=== PATIENT | female | born 1990 | race Caucasian/White ===

== ENCOUNTER 2023-06-14 11:47 | Outpatient (CLI) | payer BC, SELFPAY ==
--- OUTSIDE RECORDS SUMMARY | 2023-06-14 11:53 | XMS_ITS | Encounter Summary ---
Author Name Unknown Organization [facility] Address [address] [place] [address] Care Team Providers Care Carbon Furnace Operator Helper Name Role Phone No Ref-Primary, Physician Primary Care Provider Carmen Bernabe PA-C Unavailable [phone] [address] Cochran DPM, Podiatry /Foot and Ankle Surgery Unavailable Kaitlyn Tello GC Unavailable Tre Perera MD Unavailable Encounter Details Date Type Department Care Team (Late st Contact Info) Description 05/01/2023 MyC Medical Advice [address] [address] Crystal Landa, RN Social History Tobacco Use Types Packs/Day Years Used Date Smoking Tobacco: Never Smokeless Tobacco: Never Alcohol Use Standard Drinks/Week Comments Yes 0 (1 standard drink = 0.6 oz pur e alcohol) rarely PHQ-2 Answer Date Recorded PHQ-2 Score 0 10/20/2020 Adolescent Education Answer Date Record ed Getting School Help Needed Not on file 02/10 Sex and Gender Information Value Date Recorded Sex Assigned at Not on file Gender Identity Not on file Sexual Orientation Not on file documented as of this encounter Plan of Treatment Upcoming Encounters Date Type Department Care Team (Late st Contact Info) Description 05/04/2024 1:00 PM ACCESS DATABASE DEVELOPER Office Visit [address] [phone] Tre Perera MD [address] [place] [address] documented as of this encounter Visit Diagnoses Not on filedocumented in this encounter Additional Health Concerns Assessment Noted Time PHQ-9 Depression Total Score: 7 07/15/19 19 3:30 PM ACCESS DATABASE DEVELOPER documented as of this encounter Care Teams Carbon Furnace Operator Helper Relationship Specialty Start Date End Date No Ref-Primary, Physician PCP - General 09/16/18 Carmen Bernabe, PANewC [address] [place] [address] Physician Clinical Therapist Dermatology 05/01/21 Ave Cochran DPCristobal, Podiatry/Foot and Ankle Surgery [address] [address] Assigned Musculoskeletal Provider 12/30/21 Kaitlyn Tello GC Genetic Counseling Graduate Program Office [address] [place] [address] [address] [place] [address] Genetic Counselor Genetic Counselor, [place] 12/04/22 Tre Perera MD [address] [place] [address] Assigned Surgical Provider 05/04/23 documented as of this encounter
--- OUTSIDE RECORDS SUMMARY | 2023-06-14 11:53 | XMS_ITS | Encounter Summary ---
Author Name Unknown Organization [facility] Address [address] [place] [address] Care Team Providers Care Heat And Frost Insulator Helper Name Role Phone No Ref-Primary, Physician Primary Care Provider Carmen Bernabe PA-C Unavailable [phone] [address] CochranM, Podiatry /Foot and Ankle Surgery Unavailable Edwin Fitzgerald MD Unavailable [phone] Encounter Details Date Type Department Care Team (Latest Contact Info) Description 08/27/2022 Travel Social History Tobacco Use Types Packs/Day Years Used Date Smoking Tobacco: Never Smokeless Tobacco: Never Alcohol Use Standard Drinks/Week Comments Yes 0 (1 standard drink = 0.6 oz pur e alcohol) rarely PHQ-2 Answer Date Recorded PHQ-2 Score 0 10/20/2020 Sex and Gender Information Value Date Recorded Sex Assigned at Not on file Gender Identity Not on file Sexual Orientation Not on file COVID-19 Exposure Response Date Recorded In the last 10 days, have yo u been in contact with someone who was confirmed or suspected to have Coronavirus/COVID-19? No / Unsure 08/27/2022 9:27 AM CDT documented as of this encounter Plan of Treatment Upcoming Encounters Date Type Department Care Team (Late st Contact Info) Description 05/04/2024 1:00 PM WATER SERVER Office Visit [address] [place] [phone] Tre Perera MD [address] [place] [address] documented as of this encounter Visit Diagnoses Not on filedocumented in this encounter Additional Health Concerns Assessment Noted Time PHQ-9 Depression Total Score: 7 07/15/19 19 3:30 PM WATER SERVER documented as of this encounter Care Teams Heat And Frost Insulator Helper Relationship Specialty Start Date End Date No Ref-Primary, Physician PCP - General 09/16/18 Carmen Bernabe, PA-C [address] [place] [address] Physician It Sales Consultant Dermatology 05/01/21 Ave Cochran DPM, Podiatry/Foot and Ankle Surgery [address] [place] [address] Assigned Musculoskeletal Provider 12/30/21 Edwin Fitzgerald MD [address] [place] [address] Assigned Surgical Provider 04/21/22 documented as of this encounter
--- OUTSIDE RECORDS SUMMARY | 2023-06-14 11:53 | XMS_ITS | Encounter Summary ---
Author Name Unknown Organization [facility] Address [address] [place] [address] Care Team Providers Care Counseling Center Director Name Role Phone No Ref-Primary, Physician Primary Care Provider Carmen Bernabe PA-C Unavailable [phone] [address] Cochran DPM, Podiatry /Foot and Ankle Surgery Unavailable Kaitlyn Tello GC Unavailable Encounter Details Date Type Department Care Team (Latest Contact Info) Description 05/01/2023 Travel Social History Tobacco Use Types Packs/Day [...] st Contact Info) Description 05/04/2024 1:00 PM PUMPING SUPERVISOR Office Visit [facility] [address] [address] Tre Perera MD [address] [place] [address] documented as of this encounter Visit Diagnoses Not on filedocumented in this encounter Additional Health Concerns Assessment Noted Time PHQ-9 Depression Total Score: 7 07/15/19 19 3:30 PM PUMPING SUPERVISOR documented as of this encounter Care Teams Counseling Center Director Relationship Specialty Start Date End Date No Ref-Primary, Physician PCP - General 09/16/18 Carmen Bernabe, PANewC [address] [place] [address] Physician Automatic Nailing Machine Feeder Dermatology 05/01/21 Ave Cochran DPM, Podiatry/Foot and Ankle Surgery [address] [place] [address] [place] [id number] Assigned Musculoskeletal Provider 12/30/21 Kaitlyn Tello GC Genetic Counseling Graduate Program Office [address] [place] [address] [address] [place], [place] [phone] Genetic Counselor Genetic Counselor, 12/04/22 documented as of this encounter
--- OUTSIDE RECORDS SUMMARY | 2023-06-14 11:53 | XMS_ITS | Encounter Summary ---
Author Name Unknown Organization [facility] Address [address] [place] [address] Care Team Providers Care Certified Financial Planner Name Role Phone No Ref-Primary, Physician Primary Care Provider Carmen Bernabe PA-C Unavailable [phone] [address] Cochran DPM, Podiatry /Foot and Ankle Surgery Unavailable Edwin Fitzgerald MD Unavailable Reason for Visit * Reason Comments Nausea, Vomiting, & Diarrhea Encounter Details Date Type Department Care Team (Late st Contact Info) Description 08/27/2022 11:43 AM CDT - 08/27/2022 1:28 PM CDT [facility] Emergency Dept [address] [place] [address] Sam Rios MD [facility] [address] [place], [place] [phone] Nausea vomiting and diarrhea Discharge Disposition: Home or Self Care Social History Tobacco Use Types Packs/Day Years [...] Recorded In the last 10 days, have jon u been in contact with someone who was confirmed or suspected to have Coronavirus/COVID-19? No / Unsure 08/27/2022 9:27 AM CDT documented as of this encounter Last Filed Vital Signs Vital Sign Reading Time Taken Comments Blood Pressure 105/66 08/27/2022 12:58 PM CDT Pulse 91 08/27/2022 12:30 PM CDT Temperature 36.9 ??C (98.4 ??F) 08/27/2022 9:32 AM CD T Respiratory Rate 18 08/27/2022 9:32 AM CDT Oxygen Saturation 100% 08/27/2022 12:58 PM CDT Inhaled Oxygen Concentration - - Weight - - Height - - Body Mass Index - - documented in this encounter Discharge Instructions * Attachments The following attachments cannot be sent through Care Everywhere. * Vomiting and Diarrhea, Nonspecific (Adult) (Chinese) documented in this encounter Medications at Time of Discharge Medication Sig Dispensed Refills Start Date End Date albuterol (PROAIR HFA/PROVENTIL HFA/VENTOLIN HFA) 108 (90 Base) MCG/ACT inhalerIndications:Inter mittent asthma, uncomplicated Inhale 2 puffs into the lungs every 4 hours as needed for shortness of breath / dyspnea 2 Inhaler 11 06/03/2018 budesonide (PULMICORT FLEXHALER) 180 MCG/ACT inhaler 0 09/25/2020 budesonide (RINOCORT AQUA) 32 MCG/ACT nasal spray [place] 1 spray into both nostrils daily 0 buPROPion (WELLBUTRIN XL) 300 MG 24 hr tablet 150 mg 0 09/20/2020 Cetirizine HCl (ZYRTEC ALLERGY PO) Take 1 tablet by mouth as needed. 0 cholecalciferol (VITAMIN D3) 5000 units (125 mcg) capsule Take by mouth daily 0 desogestrel-ethinyl estradiol (KARIVA) 0.15-0.02/0.01 MG (21/5) tablet Take 1 tablet by mouth daily 0 Docusate Sodium (COLACE PO) 0 Famotidine (PEPCID PO) 0 Vit-Fe Fumarate-FA ( MULTIVITAMIN W/IRON) 27-0.8 MG tablet Take 1 tablet by mouth daily 0 Probiotic Product (PROBIOTIC-10 PO) Take by mouth daily 0 silver sulfADIAZINE (SILVADENE) 1 % external creamIndications:Acute foot pain, left,Ingrown nail of great toe of left foot Apply topically 2 times daily 25 g 1 12/22/2021 triamcinolone (ARISTOCORT HP) 0.5 % external creamIndications:Chronic dermatitis of hands Apply a thin layer to affected area BID x 2 weeks, tapering with improvement. Do not apply to face or body folds. 60 g 0 07/17/2021 ondansetron (ZOFRAN ODT) 4 MG ODT tab Take 1 tablet (4 mg) by mouth every 8 hours as needed for nausea or vomiting 10 tablet 0 08/27/2022 08/30/2022 documented as of this encounter ED Notes * Beverly Little RN - 08/27/2022 1:28 PM CDT Passed VANNESSA france MD aware * Perlita Ordonez RN - 08/27/2022 9:32 AM CDT Patient presents to the ED reporting vomiting and diarrhea since 0500 this morning. States is unable to keep anything down. * Sam Rios MD - 08/27/2022 9:27 AM CDT History Chief Complaint: Nausea, Vomiting, & Diarrhea The history is provided by the patient. Madison Donaldson is an otherwise healthy 31 year old female who presents with nausea, vomiting, anddiarrhea since 0500 this morning. Another symptom mentioned was some lightheadedness. She is not aware of any recent sick contacts, and is not concerned for . She ate an Easter meal yesterday, but no one else who ate it got sick. She denies hematochezia, melena, or hematemesis. Independent Historian: None Review of External Notes: None ROS: Review of Systems Gastrointestinal: Positive for diarrhea, nausea and vomiting. Negative for blood in stool. Neurological: Positive for light-headedness. All other systems reviewed and are negative. Allergies: Amoxicillin Seasonal Allergies Dilaudid [Kdc:Hydromorphone+Methylparaben+Propylparaben+Sodium Metabisulfite] Fentanyl Shellfish Allergy Medications: Albuterol Budesonide Bupropion Cetirizine HCl Kariva Docusate Sodium Famotidine Past Medical History: Anxiety Asthma IBS w/ diarrhea Seasonal affective disorder Depression Past Surgical History: L proximal patellar realignment Bilateral inguinal herniorrhaphy Bilateral myringotomy w/ tube insertion [place] teeth extraction Family History: Father - BCC Mother - fibromyalgia, Medullary Sponge Kidney Social History: Hx of current alcohol use; denies smoking, smokeless tobacco use, or drug use PCP: No Ref-Primary, Physician The patient presents to the ED with her father via private vehicel Physical Exam Patient Vitals for the past 24 hrs: BP Temp Pulse Resp SpO2 08/27/22 1230 105/72 -- 91 -- 100 % 08/27/22 0932 112/71 98.4 ??F (36.9 ??C) 101 18 100 % Physical Exam Eyes: periorbital tissue and sclera normal Neck: supple CV: ppi, regular Resp: speaking in full sentences without any resp distress Abd: abdomen is soft without significant tenderness, masses, organomegaly or guarding Ext: peripheral edema present: No Skin: warm dry well perfused Neuro: Alert, no gross motor or sensory deficits, gait stable Emergency Department Course Laboratory: Labs Ordered and Resulted from Time of ED Arrival to Time of ED Departure CBC WITH PLATELETS AND DIFFERENTIAL - Abnormal Result Value WBC Count 11.3 (*) RBC Count 5.08 Hemoglobin 14.7 Hematocrit 44.1 MCV 87 MCH 28.9 MCHC 33.3 RDW 12.6 Platelet Count 202 % Neutrophils 95 % Lymphocytes 3 % Monocytes 2 % Eosinophils 0 % Basophils 0 % Immature Granulocytes 0 NRBCs per 100 WBC 0 Absolute Neutrophils 10.7 (*) Absolute Lymphocytes 0.4 (*) Absolute Monocytes 0.2 Absolute Eosinophils 0.0 Absolute Basophils 0.0 Absolute Immature Granulocytes 0.0 Absolute NRBCs 0.0 BASIC METABOLIC PANEL - Normal Sodium 137 Potassium 4.4 Chloride 103 Carbon Dioxide (CO2) 22 Anion Gap 12 Urea Nitrogen 14.5 Creatinine 0.79 Calcium 9.3 Glucose 97 GFR Estimate >90 Emergency Department Course & Assessments: Interventions: 1035 Zofran 4 mg PO 1207 Toradol 15 mg IV 1208 Zofran 4 mg IV Independent Interpretation (X-rays, CTs, rhythm strip): N/A Consultations/Discussion of Management or Tests: N/A Social Determinants of Health affecting care: None Assessments: 1153 I obtained history and examined the patient as noted above. 1315 I rechecked the patient and explained findings. I discussed plan for discharge home. Disposition: The patient was discharged to home. Impression & Plan Medical Decision Makin-year-old female here for nonbilious nonbloody emesis and nonbloody diarrhea since 5 AM this morning. Overall looks well. No significant localizing abdominal tenderness palpation. Suspicion for intra abdominal vascular infectious or surgical emergency is low. She did well with antiemetics intravenous fluids. Blood test unremarkable, she was able to pass a p.o. challenge. Safe for discharge homeantiemetics as needed. Diagnosis: ICD-10-CM 1. Nausea vomiting and diarrhea R11.2 R19.7 Discharge Medications: New Prescriptions ONDANSETRON (ZOFRAN ODT) 4 MG ODT TAB Take 1 tablet (4 mg) by mouth every 8 hours as needed for nausea or vomiting Scribe Disclosure: I, Brooks Luis Alberto, am serving as a scribe at 12:58 PM on 08/27/2022 to document services personally performed by Sam Rios MD based on my observations and the provider's statements to me. 08/27/2022 Sam Rios, * Sam Rios MD 08/27/22 1322 documented in this encounter Plan of Treatment Upcoming Encounters Date Type Department Care Team (Late st Contact Info) Description 05/04/2024 1:00 PM REBAR WORKER Office Visit [address] [phone] Tre Perera MD [address] [place] [address] documented as of this encounter Procedures Procedure Name Priority Date/Time Associated Diagnosis Comments EXTRA TUBE STAT 08/27/2022 11:57 AM CDT EXTRA PURPLE TOP TUBE STAT 08/27/2022 11:57 AM CDT EXTRA GREEN TOP (LITHIUM HEPARIN) TUBE STAT 08/27/2022 11:57 AM CDT EXTRA RED TOP TUBE STAT 08/27/2022 11 :57 AM CDT EXTRA BLUE TOP TUBE STAT 08/27/2022 1 1:57 AM CDT CBC WITH PLATELETS AND DIFFERENTIAL STAT 08/27/2022 11:57 AM CDT CBC WITH PLATELETS & DIFFERENTIAL STAT 08/27/2022 11:57 AM CDT BASIC METABOLIC PANEL STAT 08/27/2022 11:57 AM CDT documented in this encounter Results * (ABNORMAL) CBC with platelets and differential (08/27/2022 11:57 AM CDT) [facility] WBC Count 11.3(H) 4.0 - 11.0 10e3/uL 08/27/2022 12:34 PM CDT [facility] RBC Count 5.08 3.80 - 5.20 10e6/uL 08/27/2022 12:34 PM CDT [facility] Hemoglobin 14.7 11.7 - 15.7 g/dL 08/27/2022 12:34 PM CDT [facility] Hematocrit 44.1 35.0 - 47.0 % 08/27/2022 12:34 PM CDT [facility] MCV 87 78 - 100 fL 08/27/2022 12:34 PM CDT [facility] MCH 28.9 26.5 - 33.0 pg 08/27/2022 12:34 PM CDT [facility] MCHC 33.3 31.5 - 36.5 g/dL 08/27/2022 12:34 PM CDT [facility] RDW 12.6 10.0 - 15.0 % 08/27/2022 12:34 PM CDT [facility] Platelet Count 202 150 - 450 10e3/uL 08/27/2022 12:34 PM CDT [facility] % Neutrophils 95 % 08/27/2022 12:34 PM CDT [facility] % Lymphocytes 3 % 08/27/2022 12:34 PM CDT [facility] % Monocytes 2 % 08/27/2022 12:34 PM CDT [facility] % Eosinophils 0 % 08/27/2022 12:34 PM CDT [facility] % Basophils 0 % 08/27/2022 12:34 PM CDT [facility] % Immature Granulocytes 0 % 08/27/2022 12:34 PM CDT [facility] NRBCs per 100 WBC 0 <1 /100 023 12:34 PM CDT [facility] Absolute Neutrophils 10.7(H) 1.6 - 8.3 10e3/uL 08/27/2022 12:34 PM CDT [facility] Absolute Lymphocytes 0.4(L) 0.8 - 5.3 10e3/uL 08/27/2022 12:34 PM CDT [facility] Absolute Monocytes 0.2 0.0 - 1.3 10e3/uL 08/27/2022 12:34 PM CDT [facility] Absolute Eosinophils 0.0 0.0 - 0.7 10e3/uL 08/27/2022 12:34 PM CDT [facility] Absolute Basophils 0.0 0.0 - 0.2 10e3/uL 08/27/2022 12:34 PM CDT [facility] Absolute Immature Granulocytes 0.0 <=0.4 10e3/uL 08/27/2022 12:34 PM CDT [facility] Absolute NRBCs 0.0 10e3/uL 08/27/2022 12:34 PM CDT [facility] Blood STRUCTURE OF LEFT UPPER LIMB / Unknown Venipuncture / Unknown 08/27/2022 11:57 AM CDT 08/27/2022 12:00 PM CDT Sam Rios MD LAB - BLOOD ORD ERABLES [facility] [address] Lab (1st floor, no room number) [place] [address], [facility] [phone] * Basic metabolic panel (08/27/2022 11:57 AM CDT) Sodium 137 136 - 145 mmol/L 08/27/2022 12:55 PM CDT LABORATORY Potassium 4.4 3.4 - 5.3 mmol/L 08/27/2022 12:55 PM CDT [facility] Chloride 103 98 - 107 mmol/L 08/27/2022 12:55 PM CDT LABORATORY Carbon Dioxide (CO2) 22 22 - 29 mmol/L 08/27/2022 12:55 PM CDT LABOR[facility] Anion Gap 12 7 - 15 mmol/L 08/27/2022 12:55 PM CDT [facility] Urea Nitrogen 14.5 6.0 - 20.0 mg/dL 08/27/2022 12:55 PM CDT LABORATORY Creatinine 0.79 0.51 - 0.95 mg/dL 08/27/2022 12:55 PM CDT LABORATORY Calcium 9.3 8.6 - 10.0 mg/dL 08/27/2022 12:55 PM CDT LABORATORY Glucose 97 70 - 99 mg/dL 08/27/2022 12:55 PM CDT LABORATORY GFR Estimate >90 >60 mL/min/1.7 3m2 08/27/2022 12:55 PM CDT LABORATORY Comment:eGFR calculated usin 2020 CKD-EPI equation. Blood STRUCTURE OF LEFT UPPER LIMB / Unknown Venipuncture / Unknown 08/27/2022 11:57 AM CDT 08/27/2022 12:00 PM CDT Sam Rios MD LAB - BLOOD ORD ERABLES [facility]ATORY [facility] [address] Lab (1st floor, no room number) [place] [address], [facility] [phone] * Extra Purple Top Tube (08/27/2022 11:57 AM CDT) Hold Specimen JIC 08/27/2022 1:02 PM CDT [facility] Blood STRUCTURE OF LEFT UPPER LIMB / Unknown Venipuncture / Unknown 08/27/2022 11:57 AM CDT 08/27/2022 12:00 PM CDT Sam Rios MD LAB - BLOOD ORD ERABLES [facility] [address] Lab (1st floor, no room number) [place] [address], [place] [phone] * Extra Green Top ([place] Heparin) Tube (08/27/2022 11:57 AM CDT) Hold Specimen [facility] 08/27/2022 1:02 PM CDT [facility] Blood STRUCTURE OF LEFT UPPER LIMB / Unknown Venipuncture / Unknown 08/27/2022 11:57 AM CDT 08/27/2022 12:00 PM CDT Sam Rios MD LAB - BLOOD ORD ERAAILEEN [facility] [address] Lab (1st floor, no room number) [place] [address], [place] [phone] * Extra Red Top Tube (08/27/2022 11:57 AM CDT) Hold Specimen [facility] 08/27/2022 1:02 PM CDT [facility] Blood STRUCTURE OF LEFT UPPER LIMB / Unknown Venipuncture / Unknown 08/27/2022 11:57 AM CDT 08/27/2022 12:00 PM CDT Sam Rios MD LAB - BLOOD ORD ERABLES [facility] [address] Lab (1st floor, no room number) [place] [address], [place] [phone] * Extra Blue Top Tube (08/27/2022 11:57 AM CDT) Hold Specimen [facility] 08/27/2022 1:02 PM CDT [facility] Blood STRUCTURE OF LEFT UPPER LIMB / Unknown Venipuncture / Unknown 08/27/2022 11:57 AM CDT 08/27/2022 12:00 PM CDT Sam Rios MD LAB - BLOOD ORD ERABLES LABORATORY [facility] [address] [facility] Lab (1st floor, no room number) [place] [address], [facility] [phone] documented in this encounter Visit Diagnoses Diagnosis Nausea vomiting and diarrhea Nausea with vomiting documented in this encounter Administered Medications Inactive Administered Medications - up to 3 most recent administrations Medication Order MAR Action Action Date Dose Rate Site ketorolac (TORADOL) injection 15 mg 15 mg, Intravenous, ONCE, On Sat08/27/22 at 1205, For 1 dose, Can cause pain on injection. If ordered intravenously (IV) : administer through a running maintenance fluid over 1 minute followed by a flush. If patient complains of pain on injection, may dilute 15-30 mg in 5 mL and push over 1 to 2 minutes. $Given 08/27/2022 12:07 PM CDT 15 mg ondansetron (ZOFRAN ODT) ODT tab 4 mg 4 mg, Oral, ONCE, On Sat08/27/22 at 1035, For 1 dose, With dry hands, peel back foil backing and gently remove tablet. Do not push oral disintegrating tablet through foil backing. Administer immediately on tongue and oral disintegrating tablet dissolves in seconds, then swallow with saliva. Liquid not required. $Given 08/27/2022 10:35 AM CDT 4 mg ondansetron (ZOFRAN) injection 4 mg 4 mg, Intravenous, ONCE, Administer over 2-5 Minutes, On Sat08/27/22 at 1205, For 1 dose, Irritant. $Given 08/27/2022 12:08 PM CDT 4 mg documented in this encounter Active and Recently Administered Medications Times are shown in CDT. Scheduled Medication Order 08/25/2022 08/26/2022 08/27/2022 ketorolac (TORADOL) injection 15 mg (COMPLETED) 15 mg, Intravenous, ONCE, On Sat08/27/22 at 1205, For 1 dose, Can cause pain on injection. If ordered intravenously (IV) : administer through a running maintenance fluid over 1 minute followed by a flush. If patient complains of pain on injection, may dilute 15-30 mg in 5 mL and push over 1 to 2 minutes. 1207 ($Given - Provi hay: Sreedhar Rico, RN) ondansetron (ZOFRAN ODT) ODT tab 4 mg (COMPLETED) 4 mg, Oral, ONCE, On Sat08/27/22 at 1035, For 1 dose, With dry hands, peel back foil backing and gently remove tablet. Do not push oral disintegrating tablet through foil backing. Administer immediately on tongue and oral disintegrating tablet dissolves in seconds, then swallow with saliva. Liquid not required. 1035 ($Given - Provi hay: Perlita Ordonez RN) ondansetron (ZOFRAN) injection 4 mg (COMPLETED) 4 mg, Intravenous, ONCE, Administer over 2-5 Minutes, On Sat08/27/22 at 1205, For 1 dose, Irritant. 1208 ($Given - Provi hay: Sreedhar Rico, BRYCE) documented in this encounter Additional Health Concerns Assessment Noted Time PHQ-9 Depression Total Score: 7 07/15/19 19 3:30 PM REBAR WORKER documented as of this encounter Care Teams Certified Financial Planner Relationship Specialty Start Date End Date No Ref-Primary, Physician PCP - General 09/16/18 Carmen Bernabe, FELIX [address] [place] [address] Physician Mediator Dermatology 05/01/21 Ave Cochran DPM, Podiatry/Foot and Ankle Surgery [address] [place] [address] Assigned Musculoskeletal Provider 12/30/21 Edwin Fitzgerald MD [address] [place] [address] Assigned Surgical Provider 04/21/22 documented as of this encounter
--- OUTSIDE RECORDS SUMMARY | 2023-06-14 11:53 | XMS_ITS | Clinical Summary ---
Author Name Unknown Organization [facility] Address [address] [place] [address] Care Team Providers Care Business Continuity Planner Name Role Phone No Ref-Primary, Physician Primary Care Provider Carmen Bernabe PA-C Unavailable Ave Cochran DPM, Podiatry /Foot and Ankle Surgery Unavailable Kaitlyn Tello GC Unavailable Tre Perera MD Unavailable Allergies Active Allergy Reactions Criticality Noted Date Comments Amoxicillin Nausea and Vomiting 05/28/2012 Hydromorphone Hcl Rash Low 05/25/2013 Fentanyl Rash Low 05/25/2013 Seasonal Allergies 05/28/2012 Shellfish Allergy Rash Low 05/28/2012 Medications Medication Sig Dispensed Refills Start Date End Date Status Cetirizine HCl (ZYRTEC ALLERGY PO) Take 1 tablet by mouth as needed. 0 Active albuterol (PROAIR HFA/PROVENTIL HFA/VENTOLIN HFA) 108 (90 Base) MCG/ACT inhalerIndications:I ntermittent asthma, uncomplicated Inhale 2 puffs into the lungs every 4 hours as needed for shortness of breath / dyspnea 2 Inhaler 11 06/03/2018 Active desogestrel-ethinyl estradiol (KARIVA) 0.15-0.02/0.01 MG (07/10) tablet Take 1 tablet by mouth daily 0 Active cholecalciferol (VITAMIN D3) 5000 units (125 mcg) capsule Take by mouth daily 0 Active Probiotic Product (PROBIOTIC-10 PO) Take by mouth daily 0 Active budesonide (PULMICORT FLEXHALER) 180 MCG/ACT inhaler 0 09/25/2020 Active buPROPion (WELLBUTRIN XL) 300 MG 24 hr tablet 150 mg 0 09/20/2020 Active Vit-Fe Fumarate-FA ( MULTIVITAMIN W/IRON) 27-0.8 MG tablet Take 1 tablet by mouth daily 0 Active budesonide (RINOCORT AQUA) 32 MCG/ACT nasal spray [place] 1 spray into both nostrils daily 0 Active Docusate Sodium (COLACE PO) 0 Active Famotidine (PEPCID PO) 0 Active triamcinolone (ARISTOCORT HP) 0.5 % external creamIndications:Chr onic dermatitis of hands Apply a thin layer to affected area BID x 2 weeks, tapering with improvement. Do not apply to face or body folds. 60 g 0 07/17/2021 Active Additional Information Patient not taking.Reported on 12/22/2021 silver sulfADIAZINE (SILVADENE) 1 % external creamIndications:Acu te foot pain, left,Ingrown nail of great toe of left foot Apply topically 2 times daily 25 g 1 12/22/2021 Active Additional Information Patient not taking.Reported on 05/01/2023 Active Problems Problem Noted Date Diagnosed Date Seasonal allergic rhinitis due to pollen 017 Mild persistent asthma with acute exacerbation 0 07/30/2016 Irritable bowel syndrome with diarrhea 6 Anxiety 02/16/2015 Syncope 05/28/2012 CARDIOVASCULAR SCREENING; LDL GOAL LESS THAN 160 05/28/2012 Allergic rhinitis Resolved Problems Problem Noted Date Diagnosed Date Resolved Date Thoracic spine pain 05/04/2021 07/28/19 22 Urinary urgency 12/15/2020 07/10/2021 Feeling of incomplete bladder emptying 12/15/2020 07/10/2021 Pubic bone pain 12/15/2020 07/10/2021 Intermittent asthma 05/31/2015 10/02/19 17 Encounters Date Type Department Care Team Description 05/01/2023 9:30 AM TIRE SERVICE SUPERVISOR Office Visit M [address] [phone] Tre Perera MD Actinic skin damage (Primary Dx); Multiple benign nevi; Lentigines 05/01/2023 Travel 05/01/2023 MyC Medical Advice M [address] [phone] Crystal Landa RN from Last 3 Months Immunizations Name Administration Dates Next Due Hepatitis A (ADULT 19+) 03/12/2017,04/24/2016 Influenza (IIV3) PF 02/16/2015,05/28/2012 Influenza Vaccine >6 months,quad, PF 03/19/2018, 04/24/2016 MMR 04/24/2016,01/18/2015 Mantoux Tuberculin Skin Test 03/12/2017, 03/05/2017,05/25/2013, 013 TD,PF 7+ (Tenivac) 06/30/2002 TDAP (Adacel,Boostrix) 05/20/2009 Typhoid IM 04/24/2016 Varicella Pt Report Hx of Varicella/Chicken Pox 05/20/1993 Yellow Fever 04/24/2016 Family History Medical History Relation Comments C.A.D. Maternal Grandfather Breast Cancer Maternal Grandmother Cerebrovascular Disease Paternal Grandfather Breast Cancer Paternal Grandmother Relation Status Comments Brother Alive Father Alive Maternal Grandfather Maternal Grandmother Mother Alive Paternal Grandfather Paternal Grandmother Sister Alive Social History Tobacco Use Types Packs/Day Years Used Date Smoking Tobacco: Never Smokeless Tobacco: Never Tobacco Cessation:Counseling Given: Yes Alcohol Use Standard Drinks/Week Comments Yes 0 (1 standard drink = 0.6 oz pur e alcohol) rarely PHQ-2 Answer Date Recorded PHQ-2 Score 0 10/20/2020 Adolescent Education Answer Date Record ed Getting School Help Needed Not on file 02/10 Sex and Gender Information Value Date Recorded Sex Assigned at Not on file Gender Identity Not on file Sexual Orientation Not on file Last Filed Vital Signs Vital Sign Reading Time Taken Comments Blood Pressure 105/66 08/27/2022 12:58 PM CDT Pulse 91 08/27/2022 12:30 PM CDT Temperature 36.9 ??C (98.4 ??F) 08/27/2022 9:32 AM CD T Respiratory Rate 18 08/27/2022 9:32 AM CDT Oxygen Saturation 100% 08/27/2022 12:58 PM CDT Inhaled Oxygen Concentration - - Weight 58.5 kg (129 lb) 12/22/2021 4:05 PM CDT Height 157.5 cm (5' 2) 11/16/2020 2:02 PM CDT Body Mass Index 23.59 11/16/2020 2:02 PM CDT Plan of Treatment Upcoming Encounters Date Type Department Care Team (Late st Contact Info) Description 05/04/2024 1:00 PM TIRE SERVICE SUPERVISOR Office Visit [facility] [address] [address] Tre Perera MD [address] [place] [address] Health Maintenance Due Date Last Done Comments ADVANCE CARE PLANNING 1988 ANNUAL REVIEW OF HM ORDERS 1988 HEPATITIS B IMMUNIZATION (1 of 3 - 3-dose series) 1988 Pneumococcal Vaccine: Pediatrics (0 to 5 Years) and At-Risk Patients (6 to 64 Years) (1 of 2 - PCV) 1994 HIV SCREENING 09/12/2003 HEPATITIS C SCREENING 2006 ASTHMA CONTROL TEST 12/01/2018 06/03/2018, 03/11/2017, 10/01/2016, Additional history exists PAP 02/18/2019 02/19/2016, 09/18/2011 ASTHMA ACTION PLAN 06/03/2019 06/03/2018, 1 06/04/2015, 04/04/2016, Additional history exists YEARLY PREVENTIVE VISIT 06/03/2019 06/03/19 19, 05/25/2013, 05/28/2012 NE ASSESSMENT 07/15/2019 07/15/2018, 06/03/2018 COVID-19 Vaccine ( season) 2023 03/16/2021, 06/27/2020, 06/06/2020 INFLUENZA VACCINE (#1) 2023 , 03/19/2018, 04/24/2016, Additional history exists PHQ-2 (once per calendar year) 2023 10/20/2020, 07/15/2018, 06/03/2018, Additional history exists DTAP/TDAP/TD IMMUNIZATION (6 - Td or Tdap) 05/23/2031 05/23/2021, 06/12/2019, 06/12/2019, Additional history exists HPV IMMUNIZATION Aged Out No longer e ligible based on patient's age to complete this topic IPV IMMUNIZATION Aged Out No longer e ligible based on patient's age to complete this topic MENINGITIS IMMUNIZATION Aged Out No l onger eligible based on patient's age to complete this topic RSV MONOCLONAL ANTIBODY Aged Out No l onger eligible based on patient's age to complete this topic Advance Directives For more information, please contact: [phone] Latest Code Status on File Code Status Date Activated Date Inactivated Comments Full Code 07/28/2012 10:04 AM 08/27/2022 9:27 AM Care Teams Business Continuity Planner Relationship Specialty Start Date End Date No Ref-Primary, Physician PCP - General 09/16/18 Carmen Bernabe, PANewC [address] [facility] [place] [address] Physician Career Agent Dermatology 05/01/21 Ave Cochran, DPM, Podiatry/Foot and Ankle Surgery [address] [place] [address] Assigned Musculoskeletal Provider 12/30/21 Kaitlyn Tello GC Genetic Counseling Graduate Program Office [address] [place] [address] [address] [place], [place] [id number] Genetic Counselor Genetic Counselor, [place] 12/04/22 Tre Perera MD [address] [place] [id number] Assigned Surgical Provider 05/04/23
--- OUTSIDE RECORDS SUMMARY | 2023-06-14 11:53 | XMS_ITS | Encounter Summary ---
Author Name Unknown Organization [facility] Address [address] [place] [address] Care Team Providers Care Car Blocker Name Role Phone No Ref-Primary, Physician Primary Care Provider Carmen Bernabe PA-C Unavailable [phone] [address] Cochran DPM, Podiatry /Foot and Ankle Surgery Unavailable Edwin Fitzgerald MD Unavailable Reason for Referral * Consultation (Routine) - Pending Review Specialty Diagnoses / Procedures Referred By Bonny alex Referred To Contact Medical Oncology Diagnoses Family history of malignant neoplasm of breast Generic External Data Department Referral ID Status Reason Start Date Expiration Date V isits Requested Visits Authorized Pending Review 11/19/2022 11/19/2023 1 1 Question Answer My Clinical Question Is: Family Hx of breast cancer If you have additional clinical questions which require a provider discussion, please call [phone]. Ask for the Chemo only medicine physician. Reason for Referral: Risk Management/Genetic Counseling Scheduling Instructions: [facility] will call you to coordinate your care as prescribed by the provider. If you don? t hear from a dermatology sales representative within 2 business days, please call Additional Information: Family Hx of breast cancer. Refer by Olvin Yadav NP Comments Fax:Family Hx of breast cancer. Refer by Olvin Yadav NP [facility] will call you to coordinate your care as prescribed by the provider. If you don? t hear from a dermatology sales representative within 2 business days, please call Encounter Details Date Type Department Care Team (Late st Contact Info) Description 11/19/2022 Transcribe Orders GENERIC EXTERNAL DATA DEPARTMENT Provider, Generic External Data Family history of malignant neoplasm of breast (Primary Dx) Social History Tobacco Use Types Packs/Day Years [...] Upcoming Encounters Date Type Department Care Team ([facility] Contact Info) Description 05/04/2024 1:00 PM TIN TIE MACHINE OPERATOR AUTOMATIC Office Visit [address] [address] Tre Perera MD [address] [place] [address] Scheduled Referrals Name Type Priority Associated Diagnoses Orde r Schedule Adult Oncology/Hematology Weatherization Specialist Referral Referral Routine Family history of malignant neoplasm of breast Ordered: 11/19/2022 documented as of this encounter Visit Diagnoses Diagnosis Family history of malignant neoplasm of breast- Primary documented in this encounter Additional Health Concerns Assessment Noted Time PHQ-9 Depression Total Score: 7 07/15/19 19 3:30 PM TIN TIE MACHINE OPERATOR AUTOMATIC documented as of this encounter Care Teams Car Blocker Relationship Specialty Start Date End Date No Ref-Primary, Physician PCP - General 09/16/18 Carmen Bernabe PA-C [facility] [place] [address] Physician Support Team Member Dermatology 05/01/21 Ave Cochran DPM, Podiatry/Foot and Ankle Surgery [address] [place] [address] Assigned Musculoskeletal Provider 12/30/21 Edwin Fitzgerald MD [address] [facility] [address] Assigned Surgical Provider 04/21/22 documented as of this encounter
--- OUTSIDE RECORDS SUMMARY | 2023-06-14 11:53 | XMS_ITS | Encounter Summary ---
Author Name Unknown Organization [facility] Address [address] [place] [address]. [place] [address] Care Team Providers Care School Bus Aide Name Role Phone No Ref-Primary, Physician Primary Care Provider Carmen Bernabe PA-C Unavailable Ave Cochran DPM, Podiatry /Foot and Ankle Surgery Unavailable Edwin Fitzgerald MD Unavailable Kaitlyn Tello GC Unavailable Encounter Details Date Type Department Care Team (Late Contact Info) Description 11/18/[address] [facility] [address] [place] [phone] Outside, Provider Social History Tobacco Use Types Packs/Day Years [...] Encounters Date Type Department Care Team (Late Contact Info) Description 05/04/2024 1:00 PM DRAINAGE DESIGN COORDINATOR Office Visit [facility] [address] [address] Tre Perera MD [address] [place] [address] documented as of this encounter Visit Diagnoses Not on filedocumented in this encounter Additional Health Concerns Assessment Noted Time PHQ-9 Depression Total Score: 7 07/15/19 19 3:30 PM DRAINAGE DESIGN COORDINATOR documented as of this encounter Care Teams School Bus Aide Relationship Specialty Start Date End Date No Ref-Primary, Physician PCP - General 09/16/18 Carmen Bernabe, PA-C [address] [place] [address] Physician Grade Teacher Dermatology 05/01/21 Ave Cochran DPCristobal, Podiatry/Foot and Ankle Surgery [address] [place] [address] [address] Assigned Musculoskeletal Provider 12/30/21 Edwin Fitzgerald MD [address] [place] [address] Assigned Surgical Provider 04/21/22 03/15/23 Kaitlyn Tello GC Genetic Counseling Graduate Program Office [address] [place] [address] [address] [place], [place] [phone] Genetic Counselor Genetic Counselor, MS 12/04/22 documented as of this encounter
--- OUTSIDE RECORDS SUMMARY | 2023-06-14 11:53 | XMS_ITS | Referral Summary ---
Author Name Unknown Organization [facility] Address [address] [place] [address] Care Team Providers Care Mixer Diamond Powder Name Role Phone No Ref-Primary, Physician Primary Care Provider Carmen Bernabe PA-C Unavailable [phone] [address] Cochran DPM, Podiatry /Foot and Ankle Surgery Unavailable Kaitlyn Tello GC Unavailable Tre Perera MD Unavailable Encounters Date Type Department Care Team Description 05/01/2023 Travel 05/01/2023 9:30 AM CARDIOPULMONARY PHYSICAL THERAPIST Office Visit [address] [address] Tre Perera MD Actinic skin damage (Primary Dx); Multiple benign nevi; Lentigines 05/01/2023 MyC Medical Advice [address] [address] Crystal Landa RN from Last 3 Months Allergies Active Allergy Reactions Criticality Noted Date [...] budesonide (RINOCORT AQUA) 32 MCG/ACT nasal spray [place] 1 spray into both nostrils daily 0 [...] 12/15/2020 07/10/2021 Intermittent asthma 05/31/2015 10/02/19 17 Immunizations Name Administration Dates Next Due Hepatitis A (ADULT 19+) 03/12/2017,04/24/2016 Influenza (IIV3) PF 02/16/2015,05/28/2012 Influenza Vaccine >6 months,quad, PF 03/19/2018, 04/24/2016 MMR 04/24/2016,01/18/2015 Mantoux Tuberculin Skin Test 03/12/2017, 03/05/2017,05/25/2013, 013 TD,PF 7+ (Tenivac) 06/30/2002 TDAP (Adacel,Boostrix) 05/20/2009 Typhoid IM 04/24/2016 Varicella Pt Report Hx of Varicella/Chicken Pox 05/20/1993 Yellow Fever 04/24/2016 Social History Tobacco Use Types Packs/Day Years [...] st Contact Info) Description 05/04/2024 1:00 PM CARDIOPULMONARY PHYSICAL THERAPIST Office Visit [address] [address] Tre Perera MD [address] [place], [place] [address] Advance Directives For more information, please contact: [phone] Latest Code Status on File Code Status Date Activated Date Inactivated Comments Full Code 07/28/2012 10:04 AM 08/27/2022 9:27 AM Care Teams Mixer Diamond Powder Relationship Specialty Start Date End Date No Ref-Primary, Physician PCP - General 09/16/18 Carmen Bernabe, PANewC [address] [place] [address] Physician Polyethylene Combiner Dermatology 05/01/21 Ave Cochran, DPM, Podiatry/Foot and Ankle Surgery [address] [place] [address] Assigned Musculoskeletal Provider 12/30/21 aKitlyn Tello GC Genetic Counseling Graduate Program Office [address] [place] [address] [address] [place], [place] [phone] Genetic Counselor Genetic Counselor, MS 12/04/22 Tre Perera MD [address] [place] [address] Assigned Surgical Provider 05/04/23
--- OUTSIDE RECORDS SUMMARY | 2023-06-14 11:53 | XMS_ITS | Clinical Summary ---
Author Name Unknown Organization [facility] Address [place], [place] [address] Care Team Providers Care Golf Course Laborer Name Role Phone Clinic, No Pcp Or Primary Care Provider Unavaila ble Allergies Active Allergy Reactions Criticality Noted Date Comments Amoxicillin GI Upset 09/18/2018 Hydromorphone Itching 09/18/2018 Fentanyl Itching 09/18/2018 Shellfish Derived Rash 09/18/2018 Medications Medication Sig Dispensed Refills Start Date End Date Status cetirizine (ZYRTEC) 10 mg tablet Take 1 tablet by mouth once daily. 0 09/18/2018 Active triamcinolone, 55 mcg each actuation, nasal (NASACORT AQ) 55 mcg nasal spray Inhale 2 Sprays into both nostrils once daily. 16.5 g 0 09/18/2018 Active buPROPion (WELLBUTRIN XL) 150 mg Extended-Release tablet TAKE 1 TABLET BY MOUTH EVERY DAY 0 03/16/2020 Active fluticasone propion-salmeteroL (ADVAIR) 250-50 mcg/Dose diskus inhaler INHALE 1 PUFF TWO TIMES A DAY. RINSE MOUTH/GARGLE AFTER USE. 0 06/29/2020 Active albuterol HFA (PRO-AIR; VENTOLIN; PROVENTIL) 90 mcg/actuation inhalerIndications:Mil d intermittent asthma with exacerbation Inhale 2 Puffs by mouth 4 times daily if needed for Wheezing. 18 g 0 02/22/2022 Active Active Problems Problem Noted Date Diagnosed Date Depression, recurrent 10/22/2018 Bloating 09/18/2018 Overview: EGD 10/2018 normal, try low fodmap diet Asthma Diarrhea Encounters Date Type Department Care Team Description 04/17/2023 Telephone [facility] [address] [place] [address] Kimmie Taylor, MS, [facility] Results (Hereditary cancer genetic test results and final risk assessment) from Last 3 Months Family History Medical History Relation Name Comments Basal cell carcinoma Father Heart Disease Maternal Grandfather Heart attack Maternal Grandfather Macular degeneration Maternal Grandfather Other Maternal Grandfather Esophag eal rupture Retinal detachment Maternal Grandfather Cancer Maternal Grandmother Periton eal Cancer-breast Maternal Grandmother Macular degeneration Maternal Grandmother Retinal detachment Maternal Grandmother Fibromyalgia Mother Kidney disease Mother Medullary Spo nge Kidney Other Mother Syncope Basal cell carcinoma Paternal Grandfather Squamous cell carcinoma Paternal Grandfather Cancer-breast Paternal Grandmother Anesthesia Problem No Family History Blood Disease No Family History Clotting disorder No Family History Relation Name Status Comments Father Alive Maternal Grandfather Alive Maternal Grandmother Alive Mother Alive Paternal Grandfather Paternal Grandmother Social History Tobacco Use Types Packs/Day Years Used Date Smoking Tobacco: Never Smokeless Tobacco: Never Tobacco Cessation:Counseling Given: Yes Alcohol Use Standard Drinks/Week Comments Yes 0 (1 standard drink = 0.6 oz pur e alcohol) Social Connections Answer Date Recorded Frequency of Communication with Friends and Fami ly Not on file 05/20/2021 Financial Resource Strain Answer Date R ecorded Difficulty of Paying Living Expenses Not on file 05/20/2021 Difficulty of Paying Living Expenses Not on file 05/20/2021 Sex and Gender Information Value Date Recorded Sex Assigned at Not on file Gender Identity Not on file Sexual Orientation Not on file Obstetrics History Last Filed Vital Signs Vital Sign Reading Time Taken Comments Blood Pressure 116/74 02/22/2022 12:18 PM CDT Pulse 109 02/22/2022 12:18 PM CDT Temperature 36.4 ??C (97.6 ??F) 02/22/2022 12:18 PM C DT Respiratory Rate 18 02/22/2022 12:18 PM CDT Oxygen Saturation 98% 02/22/2022 12:18 PM CDT Inhaled Oxygen Concentration - - Weight 54.9 kg (121 lb) 02/22/2022 12:18 PM CDT Height 157.5 cm (5' 2) 02/22/2022 12:18 PM CDT Body Mass Index 22.13 02/22/2022 12:18 PM CDT Plan of Treatment Upcoming Encounters Date Type Department Care Team (Late st Contact Info) Description 06/26/2023 9:15 AM COMPOUND FINISHER Appointment [facility] [address] [place] [address] 06/26/2023 10:00 AM COMPOUND FINISHER Office Visit [facility] [address] [place] [phone] Petty Pnag PA [address] [place] [address] Health Maintenance Due Date Last Done Comments Tdap 09/12/1999 Depression screening for age 12+ 2000 HIV for age 15-65 09/12/2003 Hepatitis C screening for ag e 18-79 2006 Tetanus booster 2008 Pap test for age 21-65 2009 BMI (ht and wt on same day) for age 18+ 07/13/2021 07/13/2020, 10/22/2018 COVID-19 vaccine series ( season) 2023 03/16/2021 Influenza for age 9-49 01/18/2023 Pneumococcal series for age 6-64 Aged Out No longer eligible b ased on patient's age to complete this topic Advance Directives Latest Code Status on File Code Status Date Activated Date Inactivated Comments Full Code 08/01/2020 11:39 AM 08/01/2020 4:07 PM Question Answer Comments Code Status Discussion: Per Existing Order Care Teams Golf Course Laborer Relationship Specialty Start Date End Date Clinic, No Pcp Or . PCP - General 09/15/18
--- OUTSIDE RECORDS SUMMARY | 2023-06-14 11:54 | XMS_ITS | Encounter Summary ---
Author Name Unknown Organization [facility] Address [address], [place] [address] Care Team Providers Care Reflow Operator Name Role Phone Omaira Herron PA-C Primary Care Provider [phone] Encounter Details Date Type Department Care Team Description 12/22/2018 Correspondence None No Primary/Referring, Phy TUBERCULOSIS (TB) RISK QUESTIONNAIRE Social History Tobacco Use Types Packs/Day Years Used Date Smoking Tobacco: Never Assessed Sex and Gender Information Value Date Recorded Sex Assigned at Not on file Gender Identity Not on file Sexual Orientation Not on file documented as of this encounter Plan of Treatment Not on file documented as of this encounter Visit Diagnoses Not on filedocumented in this encounter Care Teams Reflow Operator Relationship Specialty Start Date End Date Omaira Herron PA-C [address] [place] [address] PCP - General 10/09/21 documented as of this encounter
--- OUTSIDE RECORDS SUMMARY | 2023-06-14 11:54 | XMS_ITS | Encounter Summary ---
Author Name Unknown Organization [facility] Address [address] [address] Care Team Providers Care Director Payer Name Role Phone Omaira Herron PA-C Primary Care Provider [phone] Encounter Details Date Type Department Care Team Description 03/30/2019 Correspondence SECURITY CONTACT Jose David Gastroenterology, Provider MR REQUEST RESPONSE Social History Tobacco Use Types Packs/Day Years Used Date Smoking Tobacco: Never Smokeless Tobacco: Never Alcohol Use Standard Drinks/Week Comments Yes 0 (1 standard drink = 0.6 oz pur e alcohol) Rare Sex and Gender Information Value Date Recorded Sex Assigned at Not on file Gender Identity Not on file Sexual Orientation Not on file documented as of this encounter Plan of Treatment Not on file documented as of this encounter Visit Diagnoses Not on filedocumented in this encounter Care Teams Director Payer Relationship Specialty Start Date End Date Omaira Herron PA-C [address] [place] [address] PCP - General 10/09/21 documented as of this encounter
--- OUTSIDE RECORDS SUMMARY | 2023-06-14 11:54 | XMS_ITS | Encounter Summary ---
Author Name Unknown Organization [facility] Address [address], [place] [address] Care Team Providers Care Wheat Farmer Name Role Phone Omaira Herron PA-C Primary Care Provider [phone] Encounter Details Date Type Department Care Team Description 12/16/2018 Correspondence None No Primary/Referring, Phy PRE-PLACEMENT EXAM Social History Tobacco Use Types Packs/Day Years Used Date Smoking Tobacco: Never Assessed Sex and Gender Information Value Date Recorded Sex Assigned at Not on file Gender Identity Not on file Sexual Orientation Not on file documented as of this encounter Plan of Treatment Not on file documented as of this encounter Visit Diagnoses Not on filedocumented in this encounter Care Teams Wheat Farmer Relationship Specialty Start Date End Date Omaira Herron PA-C [address] [place] [address] PCP - General 10/09/21 documented as of this encounter
--- OUTSIDE RECORDS SUMMARY | 2023-06-14 11:54 | XMS_ITS | Encounter Summary ---
Author Name Unknown Organization [facility] Address [address] [place] [address] Care Team Providers Care Venetian Blind Tape Cutter Name Role Phone No Ref-Primary, Physician Primary Care Provider Eloisa Vallejo MD Unavailable + Makenzie Reddy PA-C Unavailable [phone] CochranM, Podiatry /Foot and Ankle Surgery Unavailable Edwin Fitzgerald MD Unavailable [phone] Kaitlyn Tello Unavailable Tre Perera MD Unavailable Reason for Visit * Reason Onset Date Comments Appointment 05/04/2021 Encounter Details Date Type Department Care Team (Late st Contact Info) Description 05/04/2021 [facility] [address] [facility] [place] [address] Sharon Erwin MD Appointment Social History Tobacco Use Types Packs/Day Years [...] Exposure Response Date Recorded In the last month, have you been in contact with someone who was confirmed or suspected to have Coronavirus / COVID-19? No / Unsure 05/04/2021 1:49 PM SECOND BALLER documented as of this encounter Miscellaneous Notes * Telephone Encounter - Sharon Erwin MD - 05/10/2021 4:58 PM SECOND BALLER Sent [employer] message as well. What ever works for her schedule. You can use a chart review or provider approval for this if needed. ND BALLER * Telephone Encounter - Eden Azar - 05/08/2021 4:13 PM CST LM to help schedule meet & greet. -Eden Azar Physician Assistant Certified ND BALLER * Telephone Encounter - Sharon Erwin MD - 05/05/2021 6:48 AM SECOND BALLER Please schedule this. ND BALLER * Telephone Encounter - Joyce Torrez - 05/04/2021 3:03 PM CST Reason for call: Other Patient called regarding (reason for call): call back Additional comments: Would like to set up a meet and greet with you for her upcoming baby due in July Phone number to reach patient: Cell number on file: Telephone Information: Best Time: Anytime after noon Can we leave a detailed message on this number? YES Travel screening: Not Applicable ND BALLER documented in this encounter Plan of Treatment Upcoming Encounters Date Type Department Care Team (Late st Contact Info) Description 05/04/2024 1:00 PM SECOND BALLER Office Visit [facility] [address] [address] Tre Perera MD [address] [place] [address] documented as of this encounter Visit Diagnoses Not on filedocumented in this encounter Additional Health Concerns Assessment Noted Time PHQ-9 Depression Total Score: 7 07/15/19 19 3:30 PM SECOND BALLER documented as of this encounter Care Teams Venetian Blind Tape Cutter Relationship Specialty Start Date End Date No Ref-Primary, Physician PCP - General 09/16/18 Eloisa Vallejo MD PRIMARY ENT [address] [facility] 13 [facility] [address] [place] [address] Assigned PCP 11/29/19 09/16/21 Makenzie Reddy PA-C [address] [place], [place] [address] Assigned Surgical Provider 11/20/20 04/20/22 Carmen Bernabe PA-C [address] [place] [address] Physician Check Clerk Dermatology 05/01/21 Ave Cochran DPM, Podiatry/Foot and Ankle Surgery [address] [facility] [address] [place] [address] Assigned Musculoskeletal Provider 12/30/21 Edwin Fitzgerald MD [address] [place] [address] Assigned Surgical Provider 04/21/22 03/15/23 Kaitlyn Tello GC Genetic Counseling Graduate Program Office [address] [place] [address] [address] [place], [place] [address] Genetic Counselor Genetic Counselor, [place] 12/04/22 Tre Perera MD [address] [place] [address] 315905 Assigned Surgical Provider 05/04/23 documented as of this encounter
--- OUTSIDE RECORDS SUMMARY | 2023-06-14 11:54 | XMS_ITS | Encounter Summary ---
Author Name Unknown Organization [facility] Address [address], [place] [address] Care Team Providers Care Insurance Compliance Analyst Name Role Phone Omaira Herron PA-C Primary Care Provider [phone] Encounter Details Date Type Department Care Team Description 09/16/2018 Scanned History External to Transferred Record, Provider [facility] Social History Tobacco Use Types Packs/Day Years [...] on filedocumented in this encounter Care Teams Insurance Compliance Analyst Relationship Specialty Start Date End Date Omaira Herron PA-C [address] [place] [address] PCP - General 10/09/21 documented as of this encounter
--- OUTSIDE RECORDS SUMMARY | 2023-06-14 11:54 | XMS_ITS | Encounter Summary ---
Author Name Unknown Organization [facility] Address [address], [place] [address] Care Team Providers Care Privacy Director Name Role Phone Omaira Herron PA-C Primary Care Provider [phone] Encounter Details Date Type Department Care Team Description 04/06/2019 Correspondence External to [facility], Provider IMMUNIZATION SUMMARY Social History Tobacco Use Types Packs/Day Years Used Date Smoking Tobacco: Never Smokeless Tobacco: Never Alcohol Use Standard Drinks/Week Comments Yes 0 (1 standard drink = 0.6 oz pur e alcohol) Rare PHQ-2 Answer Date Recorded PHQ-2 Score 1 04/08/2019 Sex and Gender Information Value Date Recorded Sex Assigned at Not on file Gender Identity Not on file Sexual Orientation Not on file documented as of this encounter Plan of Treatment Not on file documented as of this encounter Visit Diagnoses Not on filedocumented in this encounter Care Teams Privacy Director Relationship Specialty Start Date End Date Omaira Herron PA-C [address] [place] [address] PCP - General 10/09/21 documented as of this encounter
--- OUTSIDE RECORDS SUMMARY | 2023-06-14 11:54 | XMS_ITS | Encounter Summary ---
Author Name Unknown Organization [facility] Address [address] [place] [address] Care Team Providers Care Field Attendant Name Role Phone Clinic - [place], [facility] Primary Ar re Provider Heidi Isabel PA-C Unavailable Heidi Isabel PA-C Unavailable No Ref-Primary, Physician Primary Care Provider Eloisa Vallejo MD Unavailable + Heidi Isabel PA-C Unavailable Eloisa Vallejo MD Unavailable + Makenzie Reddy-Calli Unavailable Carmen Bernabe PA-C Unavailable Ave CochranM, Podiatry /Foot and Ankle Surgery Unavailable Edwin Fitzgerald MD Unavailable Kaitlyn Tello GC Unavailable Tre Perera MD Unavailable Reason for Visit * Reason Onset Date Comments Medication Question 07/19/2018 anxiety med Encounter Details Date Type Department Care Team (Late st Contact Info) Description 07/19/2018 [facility] Medical Advice [facility] [address] [place] [phone] Heidi Isabel PA-C [address] [place], [place] [id number] Medication Question (anxiety med) Social History Tobacco Use Types Packs/Day Years Used Date Smoking Tobacco: Never Smokeless Tobacco: Never Alcohol Use Standard Drinks/Week Comments Yes 0 (1 standard drink = 0.6 oz pur e alcohol) rarely PHQ-2 Answer Date Recorded PHQ-2 Score 3 06/03/2018 Sex and Gender Information Value Date Recorded Sex Assigned at Not on file Gender Identity Not on file Sexual Orientation Not on file documented as of this encounter Miscellaneous Notes * Telephone Encounter - Lola Doe RN - 07/21/2018 10:04 AM FRAME STRAIGHTENER Prozac ordered 07/15/18. Paxil was ordered 02/10/15. Looks like fatigue was an issue. See telephone encounter of 03/11/15. E STRAIGHTENER documented in this encounter Plan of Treatment Upcoming Encounters Date Type Department Care Team (Late st Contact Info) Description 05/04/2024 1:00 PM FRAME STRAIGHTENER Office Visit [address] [phone] Tre Perera MD [address] [place] [address] documented as of this encounter Visit Diagnoses Not on filedocumented in this encounter Additional Health Concerns Assessment Noted Time PHQ-9 Depression Total Score: 7 07/15/19 19 3:30 PM FRAME STRAIGHTENER documented as of this encounter Care Teams Field Attendant Relationship Specialty Start Date End Date Clinic - [facility] [address] [facility] [place] [address] PCP - General 06/03/18 09/15/18 Heidi Isabel PA-C [address] [facility] [place] [phone] PCP - Assigned PCP 06/08/18 07/22/18 No Ref-Primary, Physician PCP - General 09/16/18 Heidi Isabel PA-C [address] [place] [address] Assigned PCP 06/08/18 06/06/19 Eloisa Vallejo MD PRIMARY ENT [address] [place] [address] Assigned PCP 06/07/19 09/19/19 Heidi Isabel PA-C [address] [place] [address] Assigned PCP 09/20/19 11/28/19 Eloisa Vallejo MD PRIMARY ENT [address] [place] [address] Assigned PCP 11/29/19 09/16/21 Makenzie Reddy PA-C [address] [place] [address] Assigned Surgical Provider 11/20/20 04/20/22 Carmen Bernabe PA-C [address] [place] [address] Physician Rehab Office Coordinator Dermatology 05/01/21 [address] Cochran DPM, Podiatry/Foot and Ankle Surgery [address] [place] [address] Assigned Musculoskeletal Provider 12/30/21 Edwin Fitzgerald MD [address] [place] [address] Assigned Surgical Provider 04/21/22 03/15/23 Kaitlyn Tello GC Genetic Counseling Graduate Program Office [address] [place] [address] [address] [place], [place] [address] Genetic Counselor Genetic Counselor, [place] 12/04/22 Tre Perera MD [address] [place] [address] Assigned Surgical Provider 05/04/23 documented as of this encounter
--- OUTSIDE RECORDS SUMMARY | 2023-06-14 11:54 | XMS_ITS | Encounter Summary ---
Author Name Unknown Organization [facility] Address [address] [place] [address] Care Team Providers Care Forcer Maker Name Role Phone No Ref-Primary, Physician Primary Care Provider Heidi Isabel-C Unavailable [phone] Eloisa Vallejo MD Unavailable + Makenzie Reddy-C Unavailable Carmen Bernabe PA-C Unavailable Ave CochranM, Podiatry /Foot and Ankle Surgery Unavailable Edwin Fitzgerald MD Unavailable Kaitlyn Tello GC Unavailable Tre Perera MD Unavailable Encounter Details Date Type Department Care Team (Late st Contact Info) Description 09/22/2019 [facility] [address] [address] Vicky Cervantes, BRUSHER MACHINE Social History Tobacco Use Types Packs/Day Years [...] st Contact Info) Description 05/04/2024 1:00 PM DIRECTOR OF ACCREDITATION Office Visit [facility] [address] [address] Tre Perera MD [address] [place] [address] documented as of this encounter Visit Diagnoses Not on filedocumented in this encounter Additional Health Concerns Assessment Noted Time PHQ-9 Depression Total Score: 7 07/15/19 19 3:30 PM DIRECTOR OF ACCREDITATION documented as of this encounter Care Teams Forcer Maker Relationship Specialty Start Date End Date No Ref-Primary, Physician PCP - General 09/16/18 Heidi Isabel PA-C [address] [place] [address] Assigned PCP 09/20/19 11/28/19 Eloisa Vallejo MD PRIMARY ENT [address] [place], [place] [address] Assigned PCP 11/29/19 09/16/21 Makenzie Reddy PA-C [address] [place], [place] [address] Assigned Surgical Provider 11/20/20 04/20/22 Carmen Bernabe PANewC [address] [place] [address] Physician Cement Mason Maintenance Dermatology 05/01/21 Ave Cochran DPM, Podiatry/Foot and Ankle Surgery [address] [place] [address] Assigned Musculoskeletal Provider 12/30/21 Edwin Fitzgerald MD [address] [place] [address] Assigned Surgical Provider 04/21/22 03/15/23 Kaitlyn Tello GC Genetic Counseling Graduate Program Office [address] [place] [address] [address] [place], [place] [address] Genetic Counselor Genetic Counselor, [place] 12/04/22 Tre Perera MD [address] [place] [address]705 Assigned Surgical Provider 05/04/23 documented as of this encounter
--- OUTSIDE RECORDS SUMMARY | 2023-06-14 11:54 | XMS_ITS | Encounter Summary ---
Author Name Unknown Organization [facility] Address [address] [address] Care Team Providers Care Timber Faller Name Role Phone Omaira Herron PA-C Primary Care Provider [phone] Encounter Details Date Type Department Care Team Description 12/16/2018 Correspondence [facility] [address] [place] [address] [address] [place] [address] Keiko Mariee MD T B SKIN TEST Social History Tobacco Use Types Packs/Day Years Used Date Smoking Tobacco: Never Assessed Sex and Gender Information Value Date Recorded Sex Assigned at Not on file Gender Identity Not on file Sexual Orientation Not on file documented as of this encounter Plan of Treatment Not on file documented as of this encounter Visit Diagnoses Not on filedocumented in this encounter Care Teams Timber Faller Relationship Specialty Start Date End Date Omaira Herron PA-C [address] [place] [address] PCP - General 10/09/21 documented as of this encounter
--- OUTSIDE RECORDS SUMMARY | 2023-06-14 11:54 | XMS_ITS | Encounter Summary ---
Author Name Unknown Organization [facility] Address [facility] [place] [address] Care Team Providers Care Instrumental Teacher Name Role Phone No Ref-Primary, Physician Primary Care Provider Eloisa Vallejo MD Unavailable + Makenzie Reddy PA-C Unavailable Carmen Bernabe PA-C Unavailable Ave CochranM, Podiatry /Foot and Ankle Surgery Unavailable Edwin Fitzgerald MD Unavailable Kaitlyn Tello Unavailable Tre Perera MD Unavailable Encounter Details Date Type Department Care Team (Late st Contact Info) Description 11/23/2020 [facility] [address] [place] [address] Makenzie Reddy PA-C [address] [facility] [address] [place], [place] [phone] Social History Tobacco Use Types Packs/Day Years [...] have Coronavirus / COVID-19? No / Unsure 11/16/2020 1:41 PM CDT documented as of this encounter Plan of Treatment Upcoming Encounters Date Type Department Care Team (Late st Contact Info) Description 05/04/2024 1:00 PM PHOTOGRAPHIC PRINTER Office Visit [address] [address] Tre Perera MD [address] [place], [place] [address] documented as of this encounter Visit Diagnoses Not on filedocumented in this encounter Additional Health Concerns Assessment Noted Time PHQ-9 Depression Total Score: 7 07/15/19 19 3:30 PM PHOTOGRAPHIC PRINTER documented as of this encounter Care Teams Instrumental Teacher Relationship Specialty Start Date End Date No Ref-Primary, Physician PCP - General 09/16/18 Eloisa Vallejo MD PRIMARY ENT [address] [facility] [address] [place] [id number] Assigned PCP 11/29/19 09/16/21 Makenzie Reddy PA-C [address] [place] [address] Assigned Surgical Provider 11/20/20 04/20/22 Carmen Bernabe PA-C [address] [place], [place] 9[address] Physician Teletype Telegrapher Dermatology 05/01/21 Ave Coch[address], DPM, Podiatry/Foot and Ankle Surgery [address] [place] [address] [place] [address] Assigned Musculoskeletal Provider 12/30/21 Edwin Fitzgerald MD [address] [place] [address] Assigned Surgical Provider 04/21/22 03/15/23 Kaitlyn Tello GC Genetic Counseling Graduate Program Office [address] [place] [address] [address] [place], [place] [address] Genetic Counselor Genetic Counselor, [place] 12/04/22 Tre Perera MD [address] [place] [address] Assigned Surgical Provider 05/04/23 documented as of this encounter
--- OUTSIDE RECORDS SUMMARY | 2023-06-14 11:54 | XMS_ITS | Encounter Summary ---
Author Name Unknown Organization [facility] Address [address], [place] [address] Care Team Providers Care Furnace Liner Name Role Phone Omaira Herron PA-C Primary Care Provider [phone] Encounter Details Date Type Department Care Team Description 11/16/2018 Scanned History External to Transferred Record, Provider [facility] Social History Tobacco Use Types Packs/Day Years [...] on filedocumented in this encounter Care Teams Furnace Liner Relationship Specialty Start Date End Date Omaira Herron PA-C [address] [place] [address] PCP - General 10/09/21 documented as of this encounter
--- OUTSIDE RECORDS SUMMARY | 2023-06-14 11:54 | XMS_ITS | Encounter Summary ---
Author Name Unknown Organization [facility] Address [address], [place] [address] Care Team Providers Care Mushroom Farmer Name Role Phone Omaira Herron PA-C Primary Care Provider [phone] Encounter Details Date Type Department Care Team Description 11/24/2018 Correspondence None No Primary/Referring, Phy INITIAL HEALTH AND WORK HX QUESTIONNAIRE Social History Tobacco Use Types Packs/Day Years Used Date Smoking Tobacco: Never Assessed Sex and Gender Information Value Date Recorded Sex Assigned at Not on file Gender Identity Not on file Sexual Orientation Not on file documented as of this encounter Plan of Treatment Not on file documented as of this encounter Visit Diagnoses Not on filedocumented in this encounter Care Teams Mushroom Farmer Relationship Specialty Start Date End Date Omaira Herron PA-C [address] [address] PCP - General 10/09/21 documented as of this encounter
--- OUTSIDE RECORDS SUMMARY | 2023-06-14 11:54 | XMS_ITS | Encounter Summary ---
Author Name Unknown Organization [facility] Address [address], [place] [address] Care Team Providers Care Pershing Missile Crewmember Name Role Phone Omaira Herron PA-C Primary Care Provider [phone] Encounter Details Date Type Department Care Team Description 12/16/2018 Correspondence None No Primary/Referring, Phy REFERRAL AND AUTH Social History Tobacco Use Types Packs/Day Years Used Date Smoking Tobacco: Never Assessed Sex and Gender Information Value Date Recorded Sex Assigned at Not on file Gender Identity Not on file Sexual Orientation Not on file documented as of this encounter Plan of Treatment Not on file documented as of this encounter Visit Diagnoses Not on filedocumented in this encounter Care Teams Pershing Missile Crewmember Relationship Specialty Start Date End Date Omaira Herron PA-C [address] [place] [address] PCP - General 10/09/21 documented as of this encounter
--- OUTSIDE RECORDS SUMMARY | 2023-06-14 11:54 | XMS_ITS | Clinical Summary ---
Author Name Unknown Organization [facility] Address [address] [address] Care Team Providers Care Rim Fire Charger Operator Name Role Phone Omaira Herron PA-C Primary Care Provider [phone] Source Comments You are receiving this document as you are listed as the primary care provider,follow-up provider, or the patient has been referred to you for consultation.This is in compliance with the Medicare and[facility] EHR Incentive Program,which states Providers who transition their patient to another setting of careor provider of care or refers their patient to another provider of care shouldprovide summary care record for each transition of care or referral. Mover Allergies Active Allergy Reactions Criticality Noted Date Comments Amoxicillin Nausea And Vomiting Medium 02/05/2011 Amoxicillin Gastrointestinal 12/16/2018 Hydromorphone Hcl Itching 11/15/2017 Hydromorphone Itching 12/16/2018 Fentanyl Rash Low 05/25/2013 Fentanyl Itching 12/22/2018 Hydromorphone 02/04/2015 Other Nausea And Vomiting,Rash Low 05/16/2010 PN: LW Other1: -Shellfish Shellfish Allergy Rash Low 05/28/2012 Medications Medication Sig Dispensed Refills Start Date End Date Status cetirizine (AKA ZYRTEC) 10 MG tablet Take 1 tablet by mouth daily as needed. LW Addl Instr:Indicated for: Allergies 90 3 05/16/2010 Active budesonide (PULMICORT FLEXHALER) 180 MCG/ACT inhalerIndications:Mo derate persistent asthma without complication (HRC) Inhale 2 Puffs daily. Rinse mouth/gargle after use 1 Each 11 12/31/2020 Active buPROPion (WELLBUTRIN XL) 300 MG 24 hour release tabletIndications:Mod erate persistent asthma without complication (HRC) Take 1 Tablet by mouth daily. 90 Tablet 3 12/31/2020 Active ALBUterol sulfate HFA 108 (90 Base) MCG/ACT inhalerIndications:Mo derate persistent asthma without complication (HRC) Inhale 1-2 Puffs every 4 hours as needed for Wheezing or Shortness of Breath. 18 g 11 12/31/2020 Active Active Problems Problem Noted Date Diagnosed Date Palpitations 12/17/2020 Depression, recurrent 10/22/2018 Seasonal allergic rhinitis due to pollen 017 Irritable bowel syndrome with diarrhea 6 Anxiety 02/16/2015 Moderate persistent asthma 02/08/2015 Vasovagal syncope 03/29/2011 Resolved Problems Problem Noted Date Diagnosed Date Resolved Date Mild persistent asthma with acute exacerbation 07/30/2016 11/09/2020 Immunizations Name Administration Dates Next Due Chicken Pox - History of Illness 05/20/1993 Flu Vac (3+ yrs) 02/16/2015,05/28/2012 HepA Adult (19+ yrs) 03/12/2017,04/24/2016 Hepatitis B - Surface Antibody Positive 08/19/19 12 Influenza IIV4 (Quadrivalent) 0.5mL (21122) 02/19,04/24/2016 MMR 04/24/2016,01/18/2015 Pfizer Monovalent 12+ Purple Top 06/27/2020,05/20 TB Skin Test (PPD) 05/25/2013,05/28/2012 Td 06/30/2002 Td (7+ yrs) 06/12/2019,06/30/2002 Tdap 05/20/2009 Typhoid (Typhim Vi, IM) 04/24/2016 YF (Yellow Fever) 04/24/2016 Family History Medical History Relation Name Comments Cancer Father Heart Attack Maternal Grandfather High Cholesterol Maternal Grandfather Relation Name Status Comments Father Alive Mother Alive Maternal Grandfather Alive Social History Tobacco Use Types Packs/Day Years Used Date Smoking Tobacco: Never Smokeless Tobacco: Never Alcohol Use Standard Drinks/Week Comments Yes 0 (1 standard drink = 0.6 oz pur e alcohol) Rare PHQ-2 Answer Date Recorded PHQ-2 Score 0 06/03/2020 Sex and Gender Information Value Date Recorded Sex Assigned at Not on file Gender Identity Not on file Sexual Orientation Not on file Last Filed Vital Signs Vital Sign Reading Time Taken Comments Blood Pressure 101/72 01/09/2022 8:09 AM CDT Pulse 93 01/09/2022 8:09 AM CDT Temperature 36.6 ??C (97.9 ??F) 01/09/2022 8:09 AM CD T Respiratory Rate 16 01/09/2022 8:09 AM CDT Oxygen Saturation 100% 01/03/2021 2:45 PM CDT Inhaled Oxygen Concentration - - Weight 57.3 kg (126 lb 6.4 oz) 01/09/2022 8:09 A M CDT Height 157.5 cm (5' 2) 01/09/2022 8:09 AM CDT Body Mass Index 23.12 01/09/2022 8:09 AM CDT Plan of Treatment Health Maintenance Due Date Last Done Comments Hep C Screening (Preventive Services) 1988 Pneumococcal (1 - PCV) 1994 HIV Screening (Preventive Services) 2004 Cervical Cancer Screening 10/01/2020 10/01/2017 (Com pleted) Adult Preventive Visit 06/03/2022 06/03/2020, 2019 Asthma ACT 01/09/2023 01/09/2022, 05/20, 04/08/2019 COVID-19 Vaccine ( season) 2023 06/27/2020, 06/06/2020 Influenza (#1) 2023 03/16/2021, 02/19, 04/24/2016, Additional history exists DTaP/Tdap/Td (5 - Tdap) 05/23/2031 05/23/19, 06/12/2019, 05/20/2009, Additional history exists Zoster/Shingles (1 of 2) 2038 HepA Completed 03/12/2017, 04/24/2016 HPV Vaccine Aged Out No longer eligi ble based on patient's age to complete this topic Hib Aged Out No longer eligi ble based on patient's age to complete this topic IPV (Polio) Aged Out No longer eligi ble based on patient's age to complete this topic MCV4 Aged Out No longer eligi ble based on patient's age to complete this topic Care Teams Rim Fire Charger Operator Relationship Specialty Start Date End Date Omaira Herron, PANewC [address] [place] [address] PCP - General 10/09/21
== END 2023-06-14 11:48 | disposition home or self-care (01) ==
LOC: NFLDREF 11:47
PROVIDERS: PCP Physician Assistant; Visit Provider Physician Assistant
DX: Z13.29 Encounter for screening for other suspected endocrine disorder (principal)
CPT/HCPCS: 84443

== ENCOUNTER 2023-09-30 13:54 | Outpatient (CLI) | payer BC, SELFPAY ==
--- NOTE | 2023-09-30 14:00 | US_ITS ---
Patient: STACIE ULLOA Facility:?[facility] RIS Patient ID:?[id number] Site Patient ID:?[id number]. Site :?1990 Study:?US-OB Pelvis OB TV-09/30/2023 2:43:24 PM Ordering Physician:?CORAL CORBIN Final Report: INDICATION: First trimester scan, establish dates. COMPARISON: None. TECHNIQUE: Real-time townsend-scale imaging of the pelvis was performed. FINDINGS: Sonographic imaging demonstrates a single living intrauterine gestation. The embryo demonstrates a regular cardiac rate measuring 180 beats per minute. The embryo`s crown-rump length measurement of 2.4 cm corresponds to a gestational age of 9 weeks 1 day with a sonographic due date of 05/03/2024. There is a normal-appearing yolk sac. There are no gross abnormalities noted within the embryo at this early state of development. The gestational sac has a normal appearance. There is no evidence of a perigestational hemorrhage. The amount of fluid within the sac appears appropriate for gestational age. The cervix is closed. The myometrium appears normal. The ovaries are of normal size. Corpus luteal cyst right ovary. There are no suspicious fluid collections noted in the cul-de-sac. IMPRESSION: Normal first trimester OB ultrasound exam. Gestational age calculated at 9 weeks 1 day with a sonographic due date of 05/03/2024. Dictated by Enmanuel Peñaloza MD @ 10/01/2023 12:57:19 PM Signed by:?Enmanuel Peñaloza MD @10/01/2023 12:57:19 PM (Electronic Signature)
== END 2023-09-30 13:55 | disposition home or self-care (01) ==
LOC: US 13:54
PROVIDERS: Visit Provider Advanced Practice Midwife
DX: Z34.91 Encounter for supervision of normal pregnancy, unspecified, first trimester (principal); Z3A.09 9 weeks gestation of pregnancy
CPT/HCPCS: 76817; 82565; 82570; 84156; 84450; 84460; 84520; 84550; 86703; 86706; 86803; 86850; 86900; 86901; 87086; 87340

== ENCOUNTER 2023-09-30 15:06 | Outpatient (CLI) | payer BC, SELFPAY ==
--- OUTSIDE RECORDS SUMMARY | 2023-09-30 15:09 | XMS_ITS | Encounter Summary ---
Author Name Unknown Organization [facility] Address [address] [place] [address] Care Team Providers Care Production Planning Supervisor Name Role Phone Omaira Herron PA-C Primary Care Provider [phone]- [phone] Encounter Details Date Type Department Care Team (Late st Contact Info) Description 12/16/2018 Correspondence None No Primary/Referring, Phy [...] on filedocumented in this encounter Care Teams Production Planning Supervisor Relationship Specialty Start Date End Date Omaira Herron PA-C [address] [place] [address] PCP - General 10/09/21 documented as of this encounter
--- OUTSIDE RECORDS SUMMARY | 2023-09-30 15:09 | XMS_ITS | Clinical Summary ---
Author Name Unknown Organization [facility] Address [address] [place] [address] Care Team Providers Care Labor Operator Name Role Phone No Ref-Primary, Physician Primary Care Provider Carmen Bernabe PA-C Unavailable Kaitlyn Tello GC Unavailable [phone] Tre Perera MD Unavailable Allergies Active Allergy Reactions Criticality Noted Date Comments Amoxicillin Nausea and Vomiting 05/28/2012 Hydromorphone Hcl Rash Low 05/25/2013 Fentanyl Rash Low 05/25/2013 Seasonal Allergies 05/28/2012 Shellfish Allergy Rash Low 05/28/2012 Medications Medication Sig Dispensed Refills Start Date End Date Status Cetirizine HCl (ZYRTEC ALLERGY PO) Take 1 tablet by mouth as needed. Active albuterol (PROAIR HFA/PROVENTIL HFA/VENTOLIN HFA) 108 (90 Base) MCG/ACT inhalerIndications:I ntermittent asthma, uncomplicated Inhale 2 puffs into the lungs every 4 hours as needed for shortness of breath / dyspnea 2 Inhaler 11 06/03/2018 Active desogestrel-ethinyl estradiol (KARIVA) 0.15-0.02/0.01 MG (/5) tablet Take 1 tablet by mouth daily Active cholecalciferol (VITAMIN D3) 5000 units (125 mcg) capsule Take by mouth daily Active Probiotic Product (PROBIOTIC-10 PO) Take by mouth daily Active budesonide (PULMICORT FLEXHALER) 180 MCG/ACT inhaler 09/25/2020 Active buPROPion (WELLBUTRIN XL) 300 MG 24 hr tablet 150 mg 09/20/2020 Active Vit-Fe Fumarate-FA ( MULTIVITAMIN W/IRON) 27-0.8 MG tablet Take 1 tablet by mouth daily Active budesonide (RINOCORT AQUA) 32 MCG/ACT nasal spray [place] 1 spray into both nostrils daily Active Docusate Sodium (COLACE PO) Active Famotidine (PEPCID PO) Active triamcinolone (ARISTOCORT HP) 0.5 % external creamIndications:Chr onic dermatitis of hands Apply a thin layer to affected area BID x 2 weeks, tapering with improvement. Do not apply to face or body folds. 60 g 07/17/2021 Active Additional Information Patient not taking.Reported [...] st Contact Info) Description 05/04/2024 1:00 PM INTERNATIONAL TRADE MANAGER Office Visit [address] [address] Tre Perera MD [address] [place] [address] Health Maintenance Due Date Last Done Comments ADVANCE CARE PLANNING 1988 ANNUAL REVIEW OF HM ORDERS 1988 Pneumococcal Vaccine: Pediatrics (0 to 5 Years) and At-Risk Patients (6 to 64 Years) (1 of 2 - PCV) 1994 HIV SCREENING 09/12/2003 HEPATITIS C SCREENING 2006 HEPATITIS B IMMUNIZATION (1 of 3 - 19+ 3-dose series) 09/12/2007 ASTHMA CONTROL TEST 12/01/2018 06/03/2018, 03/11/2017, 10/01/2016, Additional history exists PAP 02/18/2019 02/19/2016, 09/18/2011 ASTHMA ACTION PLAN 06/03/2019 06/03/2018, 1 06/04/2015, 04/04/2016, Additional history exists YEARLY PREVENTIVE VISIT 06/03/2019 06/03/19 19, 05/25/2013, 05/28/2012 NE ASSESSMENT 07/15/2019 07/15/2018, 06/03/2018 COVID-19 Vaccine ( season) 2023 03/16/2021, 06/27/2020, 06/06/2020 PHQ-2 (once per calendar year) 2023 10/20/2020, 07/15/2018, 06/03/2018, Additional history exists INFLUENZA VACCINE (Season Ended) 2024 03/16/2021, 03/19/2018, 04/24/2016, Additional history exists GLUCOSE 08/27/2025 08/27/2022, 05/20, 05/25/2013, Additional history exists DTAP/TDAP/TD IMMUNIZATION (6 - [...] on patient's age to complete this topic Procedures Procedure Name Priority Date/Time Associated Diagnosis Comments BASIC METABOLIC PANEL STAT 08/27/2022 11:57 AM CDT ASTHMA ACTION PLAN Routine 04/04/2016 12 :10 PM INTERNATIONAL TRADE MANAGER Intermittent asthma, uncomplicated ABSTRACT PAP (HIM EXTERNAL RESULT) Routine 02/19/2016 from Last 3 Months or Most Recently Relevant to Health Maintenance Results * Basic metabolic panel (08/27/2022 11:57 AM CDT) Sodium 137 136 - 145 mmol/L 08/27/2022 12:55 PM CDT LABORATORY Potassium 4.4 3.4 - 5.3 mmol/L 08/27/2022 12:55 PM CDT LABORATORY Chloride 103 98 - 107 mmol/L 08/27/2022 12:55 PM CDT LABORATORY Carbon Dioxide (CO2) 22 22 - 29 mmol/L 08/27/2022 12:55 PM CDT LABORATORY Anion Gap 12 7 - 15 mmol/L 08/27/2022 12:55 PM CDT LABORATORY Urea Nitrogen 14.5 6.0 - 20.0 mg/dL 08/27/2022 12:55 PM CDT LABORATORY Creatinine 0.79 0.51 - 0.95 mg/dL 08/27/2022 12:55 PM CDT LABORATORY Calcium 9.3 8.6 - 10.0 mg/dL 08/27/2022 12:55 PM CDT LABORATORY Glucose 97 70 - 99 mg/dL 08/27/2022 12:55 PM CDT LABORATORY GFR Estimate >90 >60 mL/min/1.7 3m2 08/27/2022 12:55 PM CDT LABORATORY Comment:eGFR calculated usin g 2020 CKD-EPI equation. Blood STRUCTURE OF LEFT UPPER LIMB / Unknown Venipuncture / Unknown 08/27/2022 11:57 AM CDT 08/27/2022 12:00 PM CDT Sam Rios MD LAB - BLOOD ORD ERABLES LABORATORY [facility] [address] [facility] Lab (1st floor, no room number) [place] [address], [facility] [phone] * ABSTRACT PAP-NO CHARGE (02/19/2016) PAP Negative Negative EXTERNAL LAB 02/19/2016 Narrative EXTERNAL LAB - 02/19/2016 Please abstract the following data from this visit with this patient into the appropriate field in Epic: ? Pap smear done on this date: 02/19/16 (approximately), by this group: OBGYN specialty, results were Normal. Patient Reported LAB - HIM EXTERNAL R ESULT EXTERNAL LAB External Lab from Last 3 Months or Most Recently Relevant to Health Maintenance Advance Directives For more information, please contact: [phone] * Full Code (Latest Code Status on File) Date Activated Date Inactivated Comments 07/28/2012 10:04 AM 08/27/2022 9:27 AM Care Teams Labor Operator Relationship Specialty Start Date End Date No Ref-Primary, Physician PCP - General 09/16/18 Carmen Bernabe PA-C [address] [place] [address] Physician Slubber Machine Operator Dermatology 05/01/21 Kaitlyn Tello GC Genetic Counseling Graduate Program Office [address] [place] [address] [address] [place] [address] Genetic Counselor Genetic Counselor, [place] 12/04/22 Tre Perera MD [address] [place], [place] [address] Assigned Surgical Provider 05/04/23
--- OUTSIDE RECORDS SUMMARY | 2023-09-30 15:09 | XMS_ITS | Encounter Summary ---
Author Name Unknown Organization [facility] Address [address] [place] [address] Care Team Providers Care Cement Tile Maker Name Role Phone Omaira Herron PA-C Primary Care Provider [phone] Encounter Details Date Type Department Care Team (Late st Contact Info) Description 03/30/2019 Correspondence SECURITY CONTACT Pr Gastroenterology, Provider MR REQUEST RESPONSE Social History [...] on filedocumented in this encounter Care Teams Cement Tile Maker Relationship Specialty Start Date End Date Omaira Herron PA-C [address] [place] [address] PCP - General 10/09/21 documented as of this encounter
--- OUTSIDE RECORDS SUMMARY | 2023-09-30 15:09 | XMS_ITS | Encounter Summary ---
Author Name Unknown Organization [facility] Address [address] [place] [address] Care Team Providers Care Pulp Screen Operator Name Role Phone Omaira Herron PA-C Primary Care Provider [phone] Encounter Details Date Type Department Care Team (Late st Contact Info) Description 11/16/2018 Scanned History External to Transferred [...] on filedocumented in this encounter Care Teams Pulp Screen Operator Relationship Specialty Start Date End Date Omaira Herron PA-C [address] [place] [address] PCP - General 10/09/21 documented as of this encounter
--- OUTSIDE RECORDS SUMMARY | 2023-09-30 15:09 | XMS_ITS | Clinical Summary ---
Author Name Unknown Organization [facility] Address [address], [place] [address] Care Team Providers Care Clinique Counter Manager Name Role Phone Omaira Herron PA-C Primary Care Provider [phone] Source Comments You are receiving this document as you are listed as the primary care provider,follow-up provider, or the patient has been referred to you for consultation.This is in compliance with the Medicare and[facility] Hospital[facility] EHR Incentive Program,which states Providers who transition their patient to another setting of careor provider of care or refers their patient to another provider of care shouldprovide summary care record for each transition of care or referral. [place] Allergies Active Allergy Reactions Criticality Noted Date [...] persistent asthma with acute exacerbation 07/30/2016 11/09/2020 Encounters Date Type Department Care Team Description 07/15/2023 [facility] [phone] from Last 3 Months Immunizations Name Administration Dates Next Due Chicken Pox - History of Illness 05/20/1993 Flu Vac (3+ yrs) 02/16/2015,05/28/2012 HepA Adult (19+ yrs) 03/12/2017,04/24/2016 Hepatitis B - Surface Antibody Positive 08/19/19 12 Influenza IIV4 (Quadrivalent) 0.5mL (99675) 02/19,04/24/2016 MMR 04/24/2016,01/18/2015 Pfizer Monovalent 12+ Purple [...] 05/20, 04/08/2019 COVID-19 Vaccine ( season) 2023 03/16/2021, 06/27/2020, 06/06/2020 Influenza (Season Ended) 2024 021, 03/19/2018, 04/24/2016, Additional history exists DTaP/Tdap/Td (5 - Tdap) 05/23/2031 05/23/19 22, 06/12/2019, 05/20/2009, Additional history exists Zoster/Shingles (1 [...] age to complete this topic Care Teams Clinique Counter Manager Relationship Specialty Start Date End Date Omaira Herron, PANewC [address] [place] [place] [address] PCP - General 10/09/21
--- OUTSIDE RECORDS SUMMARY | 2023-09-30 15:09 | XMS_ITS | Encounter Summary ---
Author Name Unknown Organization [facility] Address [address], [place] [address] Care Team Providers Care Floor Covering Layer Name Role Phone Omaira Herron PA-C Primary Care Provider [phone] Encounter Details Date Type Department Care Team (Late st Contact Info) Description 12/16/2018 Correspondence [place] [facility] [place] [address] Keiko Mariee MD T B SKIN TEST [...] on filedocumented in this encounter Care Teams Floor Covering Layer Relationship Specialty Start Date End Date Omaira Herron PA-C [address] [place] [address] PCP - General 10/09/21 documented as of this encounter
--- OUTSIDE RECORDS SUMMARY | 2023-09-30 15:09 | XMS_ITS | Encounter Summary ---
Author Name Unknown Organization [facility] Address [address], [place] [address] Care Team Providers Care Boiler Or Engine Operator Name Role Phone Omaira Herron PA-C Primary Care Provider [phone] Encounter Details Date Type Department Care Team (Late st Contact Info) Description 04/06/2019 Correspondence External to [facility], Provider IMMUNIZATION SUMMARY Social History Tobacco Use [...] on filedocumented in this encounter Care Teams Boiler Or Engine Operator Relationship Specialty Start Date End Date Omaira Herron PA-C [address] [place] [address] PCP - General 10/09/21 documented as of this encounter
--- OUTSIDE RECORDS SUMMARY | 2023-09-30 15:09 | XMS_ITS | Encounter Summary ---
Author Name Unknown Organization [facility] Address [address] [place] [address] Care Team Providers Care Buzzsaw Operator Name Role Phone No Ref-Primary, Physician Primary Care Provider Carmen Bernabe PA-C Unavailable Ave Cochran DPM, Podiatry /Foot and Ankle Surgery Unavailable Kaitlyn Tello GC Unavailable Tre Perera MD Unavailable Encounter Details Date Type Department Care Team (Late st Contact Info) Description 05/01/2023 [facility] Medical Advice [address] [address] Crystal Landa, RN Social History [...] st Contact Info) Description 05/04/2024 1:00 PM MONOTYPE SETTER Office Visit [address] [phone] Tre Perera MD [address] [place] [address] documented as of this encounter Visit Diagnoses Not on filedocumented in this encounter Additional Health Concerns Assessment Noted Time PHQ-9 Depression Total Score: 7 07/15/19 19 3:30 PM MONOTYPE SETTER documented as of this encounter Care Teams Buzzsaw Operator Relationship Specialty Start Date End Date No Ref-Primary, Physician PCP - General 09/16/18 Carmen Bernabe, PANewC [address] [place] [address] Physician Research Editor Dermatology 05/01/21 [address] Cochran DPCristobal, Podiatry/Foot and Ankle Surgery [address] [place] [address] [place] [address] Assigned Musculoskeletal Provider 12/30/21 07/11/23 Kaitlyn Tello GC Genetic Counseling Graduate Program Office [address] [place] [address] [address] [place] [address] Genetic Counselor Genetic Counselor, [place] 12/04/22 Tre Perera MD [address] [place] [address] Assigned Surgical Provider 05/04/23 documented as of this encounter
--- OUTSIDE RECORDS SUMMARY | 2023-09-30 15:09 | XMS_ITS | Encounter Summary ---
Author Name Unknown Organization [facility] Address [address] [place] [address] Care Team Providers Care Hull And Deck Remover Name Role Phone Omaira Herron PA-C Primary Care Provider [phone] Encounter Details Date Type Department Care Team [...] on filedocumented in this encounter Care Teams Hull And Deck Remover Relationship Specialty Start Date End Date Omaira Herron PA-C [address] [place] [address] PCP - General 10/09/21 documented as of this encounter
--- OUTSIDE RECORDS SUMMARY | 2023-09-30 15:09 | XMS_ITS | Encounter Summary ---
Author Name Unknown Organization [facility] Address [address] [place] [address] Care Team Providers Care Bindery Machine Setter Name Role Phone Omaira Herron PA-C Primary Care Provider [phone] Encounter Details Date Type Department Care Team (Late st Contact Info) Description 12/22/2018 Correspondence None No Primary/Referring, Phy [...] on filedocumented in this encounter Care Teams Bindery Machine Setter Relationship Specialty Start Date End Date Omaira Herron PA-C [address] [place] [address] PCP - General 10/09/21 documented as of this encounter
--- OUTSIDE RECORDS SUMMARY | 2023-09-30 15:09 | XMS_ITS | Encounter Summary ---
Author Name Unknown Organization [facility] Address [address] [place] [address] Care Team Providers Care Welding Pantograph Operator Name Role Phone No Ref-Primary, Physician Primary Care Provider Heidi Isabel-C Unavailable [phone] Eloisa Vallejo MD Unavailable + Makenzie Reddy-C Unavailable Carmen Bernabe PA-C Unavailable Ave CochranM, Podiatry /Foot and Ankle Surgery Unavailable Edwin Fitzgerald MD Unavailable Kaitlyn Tello GC Unavailable [phone] Tre Perera MD Unavailable Encounter Details Date Type Department Care Team (Late st Contact Info) Description 09/22/2019 [facility] [address] [address] Vicky Cervantes, ROUGE MIXER Social History Tobacco Use Types Packs/Day Years [...] st Contact Info) Description 05/04/2024 1:00 PM EXECUTIVE COMPENSATION ANALYST Office Visit [facility] [address] [address] Tre Perera MD [address] [place] [address] documented as of this encounter Visit Diagnoses Not on filedocumented in this encounter Additional Health Concerns Assessment Noted Time PHQ-9 Depression Total Score: 7 07/15/19 19 3:30 PM EXECUTIVE COMPENSATION ANALYST documented as of this encounter Care Teams Welding Pantograph Operator Relationship Specialty Start Date End Date No Ref-Primary, Physician PCP - General 09/16/18 Heidi Isabel PA-C [address] [place] [address] Assigned PCP 09/20/19 11/28/19 Eloisa Vallejo MD PRIMARY ENT [address] [place], [place] [address] Assigned PCP 11/29/19 09/16/21 Makenzie Reddy PA-C [address] [place], [place] [address] Assigned Surgical Provider 11/20/20 04/20/22 Carmen Bernabe PANewC [address] [place] [address] Physician Wood Scaler Dermatology 05/01/21 Ave Cochran DPM, Podiatry/Foot and Ankle Surgery [address] [place] [address] Assigned Musculoskeletal Provider 12/30/21 07/11/23 Edwin Fitzgerald MD [address] [place] [address] Assigned Surgical Provider 04/21/22 03/15/23 Kaitlyn Tello GC Genetic Counseling Graduate Program Office [address] [place] [address] [address] [place] [address] Genetic Counselor Genetic Counselor, MS 12/04/22 Tre Perera MD [address] [place] [address] Assigned Surgical Provider 05/04/23 documented as of this encounter
--- OUTSIDE RECORDS SUMMARY | 2023-09-30 15:09 | XMS_ITS | Encounter Summary ---
Author Name Unknown Organization [facility] Address [address] [place] [address] Care Team Providers Care Vending Mechanic Name Role Phone No Ref-Primary, Physician Primary Care Provider Eloisa Vallejo MD Unavailable + Makenzie Reddy PA-C Unavailable Carmen BernabeC Unavailable [phone] Co[address], Podiatry /Foot and Ankle Surgery Unavailable Edwin Fitzgerald MD Unavailable Kaitlyn Tello Unavailable Tre Perera MD Unavailable Reason for Visit * Reason Onset Date Comments Appointment 05/04/2021 Encounter Details Date Type Department Care Team (Late st Contact Info) Description 05/04/2021 [facility] [address] [facility] [place] [address] Sharon Erwin MD Appointment Social [...] COVID-19? No / Unsure 05/04/2021 1:49 PM SUBACUTE NURSE documented as of this encounter Miscellaneous Notes * Telephone Encounter - Sharon Erwin MD - 05/10/2021 4:58 PM SUBACUTE NURSE Sent [employer] message as well. What ever works for her schedule. You can use a chart review or provider approval for this if needed. CUTE NURSE * Telephone Encounter - Eden Azar - 05/08/2021 4:13 PM CST LM to help schedule meet & greet. -Eden Azar Senior Manufacturing Test Engineer CUTE NURSE * Telephone Encounter - Sharon Erwin MD - 05/05/2021 6:48 AM SUBACUTE NURSE Please schedule this. CUTE NURSE * Telephone Encounter - Joyce Torrez - [...] this number? YES Travel screening: Not Applicable CUTE NURSE documented in this encounter Plan of Treatment Upcoming Encounters Date Type Department Care Team (Late st Contact Info) Description 05/04/2024 1:00 PM SUBACUTE NURSE Office Visit [facility] [address] [address] Tre Perera MD [address] [place] [address] documented as of this encounter Visit Diagnoses Not on filedocumented in this encounter Additional Health Concerns Assessment Noted Time PHQ-9 Depression Total Score: 7 07/15/19 19 3:30 PM SUBACUTE NURSE documented as of this encounter Care Teams Vending Mechanic Relationship Specialty Start Date End Date No Ref-Primary, Physician PCP - General 09/16/18 Eloisa Vallejo MD PRIMARY ENT [address] [facility] [address] [place] [address] Assigned PCP 11/29/19 09/16/21 Makenzie Reddy PA-C [address] [place], [place] [address] Assigned Surgical Provider 11/20/20 04/20/22 Carmen Bernabe PA-C [address] [place] [address] Physician Nuclear Chemistry Technician Dermatology 05/01/21 [address] Cochran DPCristobal, Podiatry/Foot and Ankle Surgery [address] [facility] [address] [place] [address] Assigned Musculoskeletal Provider 12/30/21 07/11/23 Edwin Fitzgerald MD [address] [place] [address] Assigned Surgical Provider 04/21/22 03/15/23 Kaitlyn Tello GC Genetic Counseling Graduate Program Office [address] [place] [address] [address] [place], [place] [id number] Genetic Counselor Genetic Counselor, MS 12/04/22 Tre Perera MD [address] [place], [place] [address] Assigned Surgical Provider 05/04/23 documented as of this encounter
--- OUTSIDE RECORDS SUMMARY | 2023-09-30 15:09 | XMS_ITS | Referral Summary ---
Author Name Unknown Organization [facility] Address [address] [place] [address] Care Team Providers Care Volleyball Assembler Name Role Phone No Ref-Primary, Physician Primary Care Provider Carmen Bernabe PA-C Unavailable Kaitlyn Tello GC Unavailable Tre Perera [...] budesonide (RINOCORT AQUA) 32 MCG/ACT nasal spray [place] 1 spray into both nostrils daily Active [...] st Contact Info) Description 05/04/2024 1:00 PM AIRLINE PILOT/FIRST OFFICER Office Visit [facility] [address] [place] [address] [address] Tre Perera MD [address] [place] [id number] Procedures Procedure Name Priority Date/Time Associated Diagnosis Comments BASIC METABOLIC PANEL STAT 08/27/2022 11:57 AM CDT ASTHMA ACTION PLAN Routine 04/04/2016 12 :10 PM AIRLINE PILOT/FIRST OFFICER Intermittent asthma, uncomplicated ABSTRACT PAP (HIM EXTERNAL [...] MD LAB - BLOOD ORD ERABLES LABORATORY [facility] Lab [address] Lab (1st floor, no room number) [place] [address], [facility] [phone] * ABSTRACT PAP-NO CHARGE (02/19/2016) PAP Negative [...] Advance Directives For more information, please contact: [phone] * Full Code (Latest Code Status on File) Date Activated Date Inactivated Comments 07/28/2012 10:04 AM 08/27/2022 9:27 AM Care Teams Volleyball Assembler Relationship Specialty Start Date End Date No Ref-Primary, Physician PCP - General 09/16/18 Carmen Bernabe, PANewC [address] [place] [address] Physician Sales Training Representative Dermatology 05/01/21 Kaitlyn Tello GC Genetic Counseling Graduate Program Office [address] [place] [address] [address] [place] [address] Genetic Counselor Genetic Counselor, [place] 12/04/22 Tre Perera MD [address] [place] [address] Assigned Surgical Provider 05/04/23
--- OUTSIDE RECORDS SUMMARY | 2023-09-30 15:09 | XMS_ITS | Encounter Summary ---
Author Name Unknown Organization [facility] Address [address] [place] [address] Care Team Providers Care System Configuration Specialist Name Role Phone Omaira Herron PA-C Primary Care Provider [phone] Encounter Details Date Type Department Care Team (Late st Contact Info) Description 07/15/2023 aria Kincaid [phone] Social History Tobacco Use Types Packs/Day Years [...] on file documented as of this encounter Progress Notes * FAMILY MEDICINEARIA PROVIDER - 08/05/2023 11:09 AM CDT Aria Addendum Treatment Plan Diagnosis Allergic Rhinitis Visit Date July 16, 2023 Addendum Date August 05, 2023 Madison Donaldson Date of : 86 Provider Zee Crane, Nurse Practitioner Note From Provider Albert Wallace, Thank you for the follow up. It sounds like your symptoms are related to allergies. I sent a prescription for prednisone to your pharmacy. I also sent azelastine (a nasal spray) which isan antihistamine. Please take a look through your treatment plan and let us know if you have any questions. I hope you feel better soon! Take care, Zee ROWLEY Treatment Plan I sent prescriptions for an oral steroid and nasal spray (with refills for one year) to [facility]/pharmacy. When your nasal spray prescription runs out, complete a new [facility] visit and we'll reassess your condition and treatment plan. The nasal spray is also available ajeg-epj-mciwboz (OTC) so you maywant to check with your pharmacy to see which option is less expensive. Below are a few ways to soothe your discomfort and additional self-care tips. If your symptoms don't improve after 7 days, or if you have questions, select Help to Request a Follow- up and we'll discuss next steps. Order(s) prednisone 20 mg tablet Take 1 tablet Oral once a day as directed for 5 days Note: Refills: None azelastine 137 mcg (0.1 %) aerosol,spray Wilson 1-2 spray into both nostrils twice a day as directed Note: Refills: 11 Sent To: [facility]/pharmacy [address] [place] [address] Treatment Plan Self Care Tip Topics Nasal Pressure/Mucus Relief Chapped Skin What to Expect If you follow the recommendations detailed in the Treatment tab, your symptoms should start to improve in about 7 days. If your symptoms don't improve after 7 days, or if you have questions, select Help to Request a Follow-up and we'll discuss next steps. What to Watch Out For Give us a call if you experience: ??? Pain and pressure in the face ??? Fever ??? Increasing congestion My Conditions, Orders, Allergies as of August 05, 2023 Standard condition list seasonal depression Asthma Current orders prednisone (prednisone) azelastine (azelastine) Wellbutrin XL (bupropion HCl) Zyrtec (cetirizine) Allergies amoxicillin (amoxicillin), oral fentanyl (fentanyl), TD Dilaudid (hydromorphone), oral [facility] Information [facility] by [employer] We are an online clinic open 10/12. If you have any questions or comments about this visit, please call or email [email or web address] * FAMILY MEDICINE, ARIA PROVIDER - 07/15/2023 9:50 PM CST Aria Treatment Plan Diagnosis Viral Sinusitis Visit Date July 16, 2023 Madison Donaldson Date of : 86 Provider Maritza Albert, Physician Welcome Wagon Host/Hostess Note From Provider Albert Wallace- Let?? get you feeling better! Based on your current symptoms, you have a viral sinus infection. That sinus pressure and headache you are feeling is related to intense sinus inflammation caused likely from COVID earlier in the month, but not true bacterial infection at this time. While an antibiotic is not needed YET, let?? focus on decreasing inflammation and keeping mucus thin so rudi t your symptoms are better managed as the virus runs it's course. First, I definitely recommend continuing your Nasacort once daily AND using Ibuprofen (800 mg 3 times daily for 3 days). This combination will help to greatly reduce sinus inflammation and pressure. In addition, I recommend using a saline nasal spray or sinus rinse every 3-4 hours to help thin mucus and promote better drainage. Make sure to read your treatment plan below for additional instructions and be sure to watch the video,too! If your symptoms don?? start to improve with using our recommendations within another 5-6 days, please select Help in your treatment plan to Request a follow-up and we??l re-evaluate your symptoms at no additional cost. Feel better soon and thank you for using Maritza Kincaid PA-C Treatment Plan Let?? get you feeling better by using an effective blend of iabi-ykz-liufwdt products to kick this viral infection. We??l work to reduce your pain and inflammation, help drain that irritating mucus and prevent this from worsening. Because this infection is viral, an antibiotic won?? be effective athelping your pain or treating the virus. If your symptoms don?? improve after 5 days, or if you have questions, select Help to Request a Follow-up and we??l adjust your treatment for free. Order(s) None Treatment Plan Self Care Tip Topics Inflammation Relief with Ibuprofen Relieve Facial Pressure with Nasal Steroids Cough Expectorant Warm Packs Steam Therapy Humidify Irrigate Your Sinuses What to Expect Let?? work to help you feel better by reducing your sinus congestion, pain and pressure. Keep in mind, it takes time for your body to fight off a viral sinus infection and you may feel worse before you start feeling better. Your symptoms should start to improve within 5 days from when you first noticed them. If your symptoms don?? begin to improve within this timeframe, select Help in your treatment plan to Request a Follow-up and we??l adjust your treatment for free. What to Watch Out For Give us a call immediately if you experience: ??? Vision changes ??? Redness occurring in the face ??? Worsening pain ??? High fevers My Conditions, Orders, Allergies as of July 16, 2023 Standard condition list seasonal depression Asthma Current orders Wellbutrin XL (bupropion HCl) Zyrtec (cetirizine) Allergies amoxicillin (amoxicillin), oral fentanyl (fentanyl), TD Dilaudid (hydromorphone), oral [facility] Information [facility] by [employer] We are an online clinic open 10/12. If you have any questions or comments about this visit, please call or email [email or web address] FORCE PLANNING ANALYST documented in this encounter Plan of Treatment Not on file documented as of this encounter Visit Diagnoses Diagnosis Acute sinusitis, unspecified Allergic rhinitis, unspecified documented in this encounter Care Teams System Configuration Specialist Relationship Specialty Start Date End Date Omaira Herron, SALLYC [address] [place] [address] PCP - General 10/09/21 documented as of this encounter
--- OUTSIDE RECORDS SUMMARY | 2023-09-30 15:09 | XMS_ITS | Encounter Summary ---
Author Name Unknown Organization [place] Address [facility] [place] [address] Care Team Providers Care Miner Placer Name Role Phone No Ref-Primary, Physician Primary Care Provider Eloisa Vallejo MD Unavailable + Makenzie Reddy PA-C Unavailable Carmen Bernabe PA-C Unavailable Ave CochranM, Podiatry /Foot and Ankle Surgery Unavailable Edwin Fitzgerald MD Unavailable Kaitlyn Tello Unavailable Tre Perera MD Unavailable Encounter Details Date Type Department Care Team (Late st Contact Info) Description 11/23/2020 [facility] Medical Advice [facility] [address] [place] [address] Makenzie Reddy PA-C [address] [facility] [address] [place], [place] [address] Social History Tobacco Use Types Packs/Day Years [...] st Contact Info) Description 05/04/2024 1:00 PM WIRE WHEELER Office Visit [address] [address] Tre Perera MD [address] [place], [place] [address] documented as of this encounter Visit Diagnoses Not on filedocumented in this encounter Additional Health Concerns Assessment Noted Time PHQ-9 Depression Total Score: 7 07/15/19 19 3:30 PM WIRE WHEELER documented as of this encounter Care Teams Miner Placer Relationship Specialty Start Date End Date No Ref-Primary, Physician PCP - General 09/16/18 Eloisa Vallejo MD PRIMARY ENT [address] [facility] [address] [place] [address] Assigned PCP 11/29/19 09/16/21 Makenzie Reddy PA-C [address] [place] [address] Assigned Surgical Provider 11/20/20 04/20/22 Carmen Bernabe PA-C [address] [place], [place] [id number] Physician Mba Internship Dermatology 05/01/21 [address] Coch[address] DPM, Podiatry/Foot and Ankle Surgery [address] [place] [address] [place] [address] Assigned Musculoskeletal Provider 12/30/21 07/11/23 Edwin Fitzgerald MD [address] [place] [address] Assigned Surgical Provider 04/21/22 03/15/23 Kaitlyn Tello GC Genetic Counseling Graduate Program Office [address] [place] [address] [address] [place] [address] Genetic Counselor Genetic Counselor, [place] 12/04/22 Tre Perera MD [address] [place] [address] Assigned Surgical Provider 05/04/23 documented as of this encounter
--- OUTSIDE RECORDS SUMMARY | 2023-09-30 15:09 | XMS_ITS | Encounter Summary ---
Author Name Unknown Organization [facility] Address [address] [place] [address] Care Team Providers Care Materials Manager Name Role Phone Clinic - [place], M [facility] Primary Co re Provider Heidi Isabel PA-C Unavailable Heidi Isabel PA-C Unavailable No Ref-Primary, Physician Primary Care Provider Eloisa Vallejo MD Unavailable + Heidi Isabel PA-C Unavailable Eloisa Vallejo MD Unavailable + Makenzie Reddy-Calli Unavailable [phone] Carmen Bernabe PA-C Unavailable Ave CochranM, Podiatry /Foot and Ankle Surgery Unavailable Edwin Fitzgerald MD Unavailable Kaitlyn Tello GC Unavailable Tre Perera MD Unavailable Reason for Visit * Reason Onset Date Comments Medication Question 07/19/2018 anxiety med Encounter Details Date Type Department Care Team (Late st Contact Info) Description 07/19/2018 MyC Medical Advice [facility] [address] [place] [phone] Heidi Isabel PA-C [address] [place], [place] [id number] Medication Question (anxiety med) Social History Tobacco [...] Lola Doe RN - 07/21/2018 10:04 AM FERRY TERMINAL SUPERVISOR Prozac ordered 07/15/18. Paxil was ordered 02/10/15. Looks like fatigue was an issue. See telephone encounter of 03/11/15. Y TERMINAL SUPERVISOR documented in this encounter Plan of Treatment Upcoming Encounters Date Type Department Care Team (Late st Contact Info) Description 05/04/2024 1:00 PM FERRY TERMINAL SUPERVISOR Office Visit [address] [phone] Tre Perera MD [address] [place] [address] documented as of this encounter Visit Diagnoses Not on filedocumented in this encounter Additional Health Concerns Assessment Noted Time PHQ-9 Depression Total Score: 7 07/15/19 19 3:30 PM FERRY TERMINAL SUPERVISOR documented as of this encounter Care Teams Materials Manager Relationship Specialty Start Date End Date Clinic - [facility] [address] [facility] [place] [address] PCP - General 06/03/18 09/15/18 Heidi Isabel PA-C [address] [facility], [place] [id number] PCP - Assigned PCP 06/08/18 07/22/18 No Ref-Primary, Physician PCP - General 09/16/18 Heidi Isabel PA-C [address] [place] [facility] [address] Assigned PCP 06/08/18 06/06/19 Eloisa Vallejo MD PRIMARY ENT [address] [place] [address] Assigned PCP 06/07/19 09/19/19 Heidi Isabel PA-C [address] [place] [facility] [address] Assigned PCP 09/20/19 11/28/19 Eloisa Vallejo MD PRIMARY ENT [address] [place] [address] Assigned PCP 11/29/19 09/16/21 Makenzie Reddy PA-C [address] [place] [address] Assigned Surgical Provider 11/20/20 04/20/22 Carmen Bernabe PA-C [address] [place] [address] Physician Wharf Tender Dermatology 05/01/21 [address] Coch[address] DPM, Podiatry/Foot and Ankle Surgery [address] [place] [address] Assigned Musculoskeletal Provider 12/30/21 07/11/23 Edwin Fitzgerald MD [address] [place] [address] Assigned Surgical Provider 04/21/22 03/15/23 Kaitlyn Tello GC Genetic Counseling Graduate Program Office [address] [place] [address] [address] [place], [place] [address] Genetic Counselor Genetic Counselor, [place] 12/04/22 Tre Perera MD [address] [place] [address] Assigned Surgical Provider 05/04/23 documented as of this encounter
--- OUTSIDE RECORDS SUMMARY | 2023-09-30 15:09 | XMS_ITS | Encounter Summary ---
Author Name Unknown Organization [facility] Address [address] [place] [address] Care Team Providers Care Private Tutors And Teachers Name Role Phone Omaira Herron PA-C Primary Care Provider [phone] Encounter Details Date Type Department Care Team (Late st Contact Info) Description 11/24/2018 Correspondence None No Primary/Referring, Phy [...] on filedocumented in this encounter Care Teams Private Tutors And Teachers Relationship Specialty Start Date End Date Omaira Herron PA-C [address] [place] [address] PCP - General 10/09/21 documented as of this encounter
--- OUTSIDE RECORDS SUMMARY | 2023-09-30 15:09 | XMS_ITS | Clinical Summary ---
Author Name Unknown Organization [employer] [facility] [employer] [facility] [employer] Address [place], [place] [address] Care Team Providers Care Lighter Captain Name Role Phone [facility] Primary Care Provider [phone] Allergies Active Allergy Reactions Criticality Noted Date [...] into both nostrils once daily. 16.5 g 09/18/2018 Active buPROPion (WELLBUTRIN XL) 150 mg Extended-Release tablet TAKE 1 TABLET BY MOUTH EVERY DAY 03/16/2020 Active fluticasone propion-salmeteroL (ADVAIR) 250-50 mcg/Dose diskus inhaler INHALE 1 PUFF TWO TIMES A DAY. RINSE MOUTH/GARGLE AFTER USE. 06/29/2020 Active albuterol HFA (PRO-AIR; VENTOLIN; PROVENTIL) 90 mcg/actuation inhalerIndications:Mil d intermittent asthma with exacerbation Inhale 2 Puffs by mouth 4 times daily if needed for Wheezing. 18 g 02/22/2022 Active Active Problems Problem Noted Date Diagnosed Date Depression, recurrent 10/22/2018 Bloating 09/18/2018 Overview: EGD 10/2018 normal, try low fodmap diet Asthma Diarrhea Family History Medical History Relation Name Comments Basal cell carcinoma Father Heart Disease Maternal Grandfather Heart attack Maternal Grandfather Macular degeneration Maternal Grandfather Other Maternal Grandfather Esophag eal rupture Retinal detachment Maternal Grandfather Cancer Maternal Grandmother Periton eal Cancer-breast Maternal Grandmother Macular degeneration Maternal Grandmother Retinal detachment Maternal Grandmother Fibromyalgia Mother Kidney disease Mother Medullary Spo nge Kidney Other Mother Syncope Cancer-breast Other 1 P. Great aunt Cancer-breast Other 2 M.Great aunt Basal cell carcinoma Paternal Grandfather Cancer-prostate Paternal Grandfather Poss ibly had prostate Squamous cell carcinoma Paternal Grandfather Cancer-breast Paternal Grandmother i n 40's Anesthesia Problem No Family History Blood Disease No Family History Cancer-ovarian No Family History Clotting disorder No Family History Relation Name Status Comments Father Alive Maternal Grandfather Alive Maternal Grandmother Alive Mother Alive Other 1 P. Great aunt Other 2 M.Great aunt Alive Paternal Grandfather Paternal Grandmother Social History Tobacco Use Types Packs/Day Years Used Date Smoking Tobacco: Never Smokeless Tobacco: Never Tobacco Cessation:Counseling Given: Yes Alcohol Use Standard Drinks/Week Comments Yes 0 (1 standard drink = 0.6 oz pur e alcohol) Once every 3 months Social Connections Answer Date Recorded Frequency of Communication with Friends and Fami ly Not on file 06/26/2023 Financial Resource Strain Answer Date R ecorded Difficulty of Paying Living Expenses Not on file 05/20/2021 Difficulty of Paying Living Expenses Not on file 05/20/2021 Sex and Gender Information Value Date Recorded Sex Assigned at Not on file Gender Identity Not on file Sexual Orientation Not on file Obstetrics History Last Filed Vital Signs Vital Sign Reading Time Taken Comments Blood Pressure 105/73 06/26/2023 10:05 AM ELECTRICAL DESIGN TECHNICIAN Pulse 83 06/26/2023 10:05 AM ELECTRICAL DESIGN TECHNICIAN Temperature 36.4 ??C (97.6 ??F) 02/22/2022 12:18 PM C DT Respiratory Rate 18 02/22/2022 12:18 PM CDT Oxygen Saturation 98% 02/22/2022 12:18 PM CDT Inhaled Oxygen Concentration - - Weight 49.9 kg (110 lb) 06/26/2023 10:05 AM ELECTRICAL DESIGN TECHNICIAN Height 157.5 cm (5' 2) 02/22/2022 12:18 PM CDT Body Mass Index 20.12 02/22/2022 12:18 PM CDT Plan of Treatment Health Maintenance Due [...] season) 2023 03/16/2021 Influenza for age 9-49 01/19/2024 Pneumococcal series for age 6-64 Aged Out No longer eligible b ased on patient's age to complete this topic Advance Directives * Full Code (Latest Code Status on File) Date Activated Date Inactivated Comments 08/01/2020 11:39 AM 08/01/2020 4:07 PM Question Answer Comments Code Status Discussion: Per Existing Order Care Teams Lighter Captain Relationship Specialty Start Date End Date [address] [place] [address] PCP - General 06/25/23
--- OUTSIDE RECORDS SUMMARY | 2023-09-30 15:10 | XMS_ITS | Encounter Summary ---
Author Name Unknown Organization [facility] Address [address] [place] [address] Care Team Providers Care Rn Lab Name Role Phone Omaira Herron PA-C Primary Care Provider [phone] Encounter Details Date Type Department Care Team (Late st Contact Info) Description 09/16/2018 Scanned History External to Transferred Record, Provider [employer] Social History Tobacco Use Types Packs/Day Years [...] on filedocumented in this encounter Care Teams Rn Lab Relationship Specialty Start Date End Date Omaira Herron PA-C [address] [place] [address] PCP - General 10/09/21 documented as of this encounter
== END 2023-09-30 15:07 | disposition home or self-care (01) ==
PROVIDERS: Visit Provider Advanced Practice Midwife
DX: Z34.91 Encounter for supervision of normal pregnancy, unspecified, first trimester (principal); Z3A.09 9 weeks gestation of pregnancy
CPT/HCPCS: 82565; 82570; 84156; 84450; 84460; 84520; 84550; 86592; 86703; 86704; 86706; 86762; 86787; 86803; 86850; 86900; 86901; 87086; 87340

== ENCOUNTER 2023-11-18 11:08 | Outpatient (CLI) | payer BC, SELFPAY ==
--- OUTSIDE RECORDS SUMMARY | 2023-11-18 11:13 | XMS_ITS | Encounter Summary ---
Author Organization [facility] Address [address], [place] [address] Care Team Providers Care Wire Preparation Worker Name Role Phone Omaira Herron PA-C Primary Care Provider [phone] Encounter Details Date Type Department Care Team (Late st Contact Info) Description 07/15/2023 aria Kincaid [phone] Social History Tobacco Use Types Packs/Day Years [...] spray (with refills for one year) to [facility]/pharmacy. When your nasal spray prescription runs out, complete a new [facility] visit and we'll reassess your condition and treatment plan. The nasal spray is also available ryww-ioa-trlnhms (OTC) so you maywant to check with [...] None azelastine 137 mcg (0.1 %) aerosol,spray Deshler 1-2 spray into both nostrils twice a day as directed Note: Refills: 11 Sent To: [facility]/pharmacy [address] [place] [address] Treatment Plan Self Care Tip Topics Nasal [...] oral fentanyl (fentanyl), TD Dilaudid (hydromorphone), oral [facility] Information [facility] [employer] We are an online clinic open 10/12. If you have any questions or comments about this visit, please call or email [email or web address] * FAMILY MEDICINE, ARIA PROVIDER - 07/15/2023 9:50 PM CST Aria Treatment Plan Diagnosis Viral Sinusitis Visit Date July 16, 2023 Madiosn Donaldson Date of : 86 Provider Maritza Albert, Physician Sec Reporting Consultant Note From Provider Albert HesterMadison- Let?? get you feeling better! Based on [...] better by using an effective blend of mcye-fqn-wqdynhw products to kick this viral infection. We??l [...] oral fentanyl (fentanyl), TD Dilaudid (hydromorphone), oral [employer] Information [employer] by [employer] We are an online clinic open 10/12. If you have any questions or comments about this visit, please call or email [email or web address] Electronically signed by Interface, In [employer] Notes at 07/16/2023 9:03 AM STONE ENGRAVER documented in this encounter Plan of Treatment Not on file documented as of this encounter Visit Diagnoses Diagnosis Acute sinusitis, unspecified Allergic rhinitis, unspecified documented in this encounter Care Teams Wire Preparation Worker Relationship Specialty Start Date End Date Omaira Herron, SALLYC [address] [place] [address] PCP - General 10/09/21 documented as of this encounter
--- OUTSIDE RECORDS SUMMARY | 2023-11-18 11:13 | XMS_ITS | Encounter Summary ---
Author Organization [place] Address [address] [place] [address] Care Team Providers Care Porter Marina Name Role Phone Clinic - [place], M [facility] Primary Fl re Provider Heidi Isabel PA-C Unavailable Heidi Isabel PA-C Unavailable No Ref-Primary, Physician Primary Care Provider Eloisa Vallejo MD Unavailable + Heidi Isabel PA-C Unavailable [phone] Eloisa Vallejo MD Unavailable + Makenzie Reddy-C Unavailable Carmen Bernabe PA-C Unavailable [phone] Co[address] DPM, Podiatry /Foot and Ankle Surgery Unavailable Edwin Fitzgerald MD Unavailable [phone] Kaitlyn Tello GC Unavailable Tre Perera MD Unavailable Reason for Visit * Reason Onset Date Comments Medication Question 07/19/2018 anxiety med Encounter Details Date Type Department Care Team (Late st Contact Info) Description 07/19/2018 MyC Medical Advice [facility] [address] [place] [phone] Heidi Isabel PA-C [address] [place], [place] [phone] Medication Question (anxiety med) Social History Tobacco [...] Lola Doe RN - 07/21/2018 10:04 AM TRAFFIC MAINTENANCE OFFICER Prozac ordered 07/15/18. Paxil was ordered 02/10/15. Looks like fatigue was an issue. See telephone encounter of 03/11/15. FIC MAINTENANCE OFFICER documented in this encounter Plan of Treatment Upcoming Encounters Date Type Department Care Team (Late st Contact Info) Description 05/04/2024 1:00 PM TRAFFIC MAINTENANCE OFFICER Office Visit [address] [phone] Tre Perera MD [address] [place] [address] documented as of this encounter Visit Diagnoses Not on filedocumented in this encounter Additional Health Concerns Assessment Noted Time PHQ-9 Depression Total Score: 7 07/15/19 19 3:30 PM TRAFFIC MAINTENANCE OFFICER documented as of this encounter Care Teams Porter Marina Relationship Specialty Start Date End Date Clinic - [facility] [address] [address] [place] [address] PCP - General 06/03/18 09/15/18 Heidi Isabel PA-C [address] [facility] [address] PCP - Assigned PCP 06/08/18 07/22/18 No Ref-Primary, Physician PCP - General 09/16/18 Heidi Isabel PA-C [address] [place] [place] [address] Assigned PCP 06/08/18 06/06/19 Eloisa Vallejo MD PRIMARY ENT [address] [place] [address] Assigned PCP 06/07/19 09/19/19 Heidi Isabel PA-C [address] [place] [address] Assigned PCP 09/20/19 11/28/19 Eloisa Vallejo MD PRIMARY ENT [address] [place] [address] Assigned PCP 11/29/19 09/16/21 Makenzie Reddy PA-C [address] [place] [address] Assigned Surgical Provider 11/20/20 04/20/22 Carmen Bernabe PA-C [address] [place] [address] Physician Kiln Car Repairer Dermatology 05/01/21 [address] Coch[address] DPM, Podiatry/Foot and Ankle Surgery [address] [place] [address] Assigned Musculoskeletal Provider 12/30/21 07/11/23 Edwin Fitzgerald MD [address] [place] [address] Assigned Surgical Provider 04/21/22 03/15/23 Kaitlyn Tello GC Genetic Counseling Graduate Program Office [address] [place] [address] [address] [place], [place] [address] Genetic Counselor Genetic Counselor, [place] 12/04/22 Tre Perera MD [address] [place] [address] Assigned Surgical Provider 05/04/23 documented as of this encounter
--- OUTSIDE RECORDS SUMMARY | 2023-11-18 11:13 | XMS_ITS | Referral Summary ---
Author Organization [place] Address [address] [place] [address] Care Team Providers Care Dry Kiln Operator Name Role Phone No Ref-Primary, Physician [...] budesonide (RINOCORT AQUA) 32 MCG/ACT nasal spray [place] 1 spray into both nostrils daily Active [...] st Contact Info) Description 05/04/2024 1:00 PM GREEN BUILDING MATERIALS DESIGNER Office Visit [facility] [address] [address] Tre Perera MD [address] [place] [address] [id number] Procedures Procedure Name Priority Date/Time Associated Diagnosis Comments BASIC METABOLIC PANEL STAT 08/27/2022 11:57 AM CDT ASTHMA ACTION PLAN Routine 04/04/2016 12 :10 PM GREEN BUILDING MATERIALS DESIGNER Intermittent asthma, uncomplicated ABSTRACT PAP (HIM EXTERNAL [...] MD LAB - BLOOD ORD ERABLES LABORATORY [facility] Acute Care Lab [address] Lab (1st floor, no room number) [place] [address], [facility] [phone] * ABSTRACT PAP-NO CHARGE (02/19/2016) PAP Negative [...] Advance Directives For more information, please contact: [phone] * Full Code (Latest Code Status on File) Date Activated Date Inactivated Comments 07/28/2012 10:04 AM 08/27/2022 9:27 AM Care Teams Dry Kiln Operator Relationship Specialty Start Date End Date No Ref-Primary, Physician PCP - General 09/16/18 Carmen Bernabe, PANewC [address] [place] [address] Physician Extracting Machine Operator Dermatology 05/01/21 Kaitlyn Tello GC Genetic Counseling Graduate Program Office [address] [place] [address] [address] [place] [address] Genetic Counselor Genetic Counselor, [place] 12/04/22 Tre Perera MD [address] [place] [address] [place] [address] Assigned Surgical Provider 05/04/23
--- OUTSIDE RECORDS SUMMARY | 2023-11-18 11:13 | XMS_ITS | Clinical Summary ---
Author Organization [facility] Address [address], [place] [address] Care Team Providers Care Lacquer Pin Press Operator Name Role Phone Omaira Herron PA-C Primary Care Provider +1- [phone] Source Comments You are receiving this document as you are listed as the primary care provider,follow-up provider, or the patient has been referred to you for consultation.This is in compliance with the Medicare andAs[facility] Medical Cent[facility]aid EHR Incentive Program,which states Providers who transition their patient to another setting of careor provider of care or refers their patient to another provider of care shouldprovide summary care record for each transition of care or referral. [employer] Allergies Active Allergy Reactions Criticality Noted Date [...] Positive 08/19/19 12 Influenza IIV4 (Quadrivalent) 0.5mL (37476) 02/19,04/24/2016 MMR 04/24/2016,01/18/2015 Pfizer Monovalent 12+ Purple [...] 2023 03/16/2021, 06/27/2020, 06/06/2020 Influenza (Season Ended) 01/19/20242 021, 03/19/2018, 04/24/2016, Additional history exists DTaP/Tdap/Td [...] age to complete this topic Care Teams Lacquer Pin Press Operator Relationship Specialty Start Date End Date Omaira Herron, PA-C [address] [place] [address] PCP - General 10/09/21
--- OUTSIDE RECORDS SUMMARY | 2023-11-18 11:13 | XMS_ITS | Encounter Summary ---
Author Organization [facility] Address [address] [place] [address] Care Team Providers Care Supervisor Assembly And Packing Name Role Phone Omaira Herron PA-C Primary Care Provider +1- [phone] Encounter Details Date Type Department Care Team (Late st Contact Info) Description 04/06/2019 Correspondence External to [employer], Provider IMMUNIZATION SUMMARY Social History Tobacco Use [...] on filedocumented in this encounter Care Teams Supervisor Assembly And Packing Relationship Specialty Start Date End Date Omaira Herron, FELIX [address] [place] [address] PCP - General 10/09/21 documented as of this encounter
--- OUTSIDE RECORDS SUMMARY | 2023-11-18 11:13 | XMS_ITS | Encounter Summary ---
Author Organization [facility] Address [address] [place] [address] Care Team Providers Care Ballet Professor Name Role Phone No Ref-Primary, Physician Primary Care Provider Carmen Bernabe PA-C Unavailable Ave CochranM, Podiatry /Foot and Ankle Surgery Unavailable Kaitlyn Tello GC Unavailable Tre Perera MD Unavailable Encounter Details Date Type Department Care Team (Late Contact Info) Description 05/01/2023 [facility] [place] [address] [address] Crystal Landa, RN Social History [...] (Late Contact Info) Description 05/04/2024 1:00 PM PARTS PROFESSIONAL Office Visit [address] [phone] Tre Perera MD 500 [place] [address] documented as of this encounter Visit Diagnoses Not on filedocumented in this encounter Additional Health Concerns Assessment Noted Time PHQ-9 Depression Total Score: 7 07/15/19 19 3:30 PM PARTS PROFESSIONAL documented as of this encounter Care Teams Ballet Professor Relationship Specialty Start Date End Date No Ref-Primary, Physician PCP - General 09/16/18 Carmen Bernabe, PANewC [address] [place] [address] Physician Electronic Security Specialist Dermatology 05/01/21 Ave Cochran DPM, Podiatry/Foot and Ankle Surgery [address] [place] [address] [address] Assigned Musculoskeletal Provider 12/30/21 07/11/23 Kaitlyn Tello GC Genetic Counseling Graduate Program Office [address] [place] [address] [address] [place] [address] Genetic Counselor Genetic Counselor, MS 12/04/22 Tre Perera MD [address] [place] [address] Assigned Surgical Provider 05/04/23 documented as of this encounter
--- OUTSIDE RECORDS SUMMARY | 2023-11-18 11:13 | XMS_ITS | Clinical Summary ---
Author Organization [place] Address [address] [place] [address] Care Team Providers Care Computer Training Specialist Name Role Phone No Ref-Primary, Physician Primary [...] budesonide (RINOCORT AQUA) 32 MCG/ACT nasal spray [place] 1 spray into both nostrils daily Active [...] st Contact Info) Description 05/04/2024 1:00 PM PLASTIC TOP ASSEMBLER Office Visit [address] [address] Tre Perera MD [address] [place] [address] Health Maintenance Due Date Last Done Comments [...] ACTION PLAN Routine 04/04/2016 12 :10 PM PLASTIC TOP ASSEMBLER Intermittent asthma, uncomplicated ABSTRACT PAP (HIM EXTERNAL [...] MD LAB - BLOOD ORD ERABLES LABORATORY [facility] Acute Care Lab [address] [facility] Lab (1st floor, no room number) [place] [address], [facility] [phone] * ABSTRACT PAP-NO CHARGE (02/19/2016) PAP Negative [...] Advance Directives For more information, please contact: [phone] * Full Code (Latest Code Status on File) Date Activated Date Inactivated Comments 07/28/2012 10:04 AM 08/27/2022 9:27 AM Care Teams Computer Training Specialist Relationship Specialty Start Date End Date No Ref-Primary, Physician PCP - General 09/16/18 Carmen Bernabe PA-C [address] [place], [place] [id number] Physician Ceo Na Dermatology 05/01/21 Kaitlyn Tello GC Genetic Counseling Graduate Program Office [address] [place] [address] [address] [place], [place] 265405 Genetic Counselor Genetic Counselor, MS 12/04/22 Tre Perera MD [address] [place], [place] [phone] Assigned Surgical Provider 05/04/23
--- OUTSIDE RECORDS SUMMARY | 2023-11-18 11:13 | XMS_ITS | Encounter Summary ---
Author Organization [facility] Address [address] [place] [address] Care Team Providers Care Button Bradder Name Role Phone No Ref-Primary, Physician Primary Care Provider Eloisa Vallejo MD Unavailable + Makenzie Reddy PA-C Unavailable Carmen Bernabe PA-C Unavailable Ave CochranM, Podiatry /Foot and Ankle Surgery Unavailable Edwin Fitzgerald MD Unavailable Kaitlyn Tello Unavailable Tre Perera MD Unavailable Encounter Details Date Type Department Care Team (Late st Contact Info) Description 11/23/2020 [facility] Medical Advice [facility] [address] [place] [address] Makenzie Reddy PA-C [address] [facility] [address] [place], [place] [phone] Social History Tobacco Use Types Packs/Day Years [...] st Contact Info) Description 05/04/2024 1:00 PM DELIVERER PHARMACY Office Visit [address] [address] Tre Perera MD [address] [place], [place] [address] documented as of this encounter Visit Diagnoses Not on filedocumented in this encounter Additional Health Concerns Assessment Noted Time PHQ-9 Depression Total Score: 7 07/15/19 19 3:30 PM DELIVERER PHARMACY documented as of this encounter Care Teams Button Bradder Relationship Specialty Start Date End Date No Ref-Primary, Physician PCP - General 09/16/18 Eloisa Vallejo MD PRIMARY ENT [address] [place] 332[address] Assigned PCP 11/29/19 09/16/21 Makenzie Reddy PA-C [address] [place] [address]500[address] Assigned Surgical Provider 11/20/20 04/20/22 Carmen Bernabe PA-C [address] [place], [place] [phone] Physician Aircraft Detail Draftsperson Dermatology 05/01/21 [address] Cochran DPM, Podiatry/Foot and Ankle Surgery [address] [place] [address] Assigned Musculoskeletal Provider 12/30/21 07/11/23 Edwin Fitzgerald MD [address] [facility] [place] [address] Assigned Surgical Provider 04/21/22 03/15/23 Kaitlyn Tello GC Genetic Counseling Graduate Program Office [address] [place] [address] [address] [place], [place] [phone] Genetic Counselor Genetic Counselor, MS 12/04/22 Tre Perera MD [address] [place] [address] Assigned Surgical Provider 05/04/23 documented as of this encounter
--- OUTSIDE RECORDS SUMMARY | 2023-11-18 11:13 | XMS_ITS | Encounter Summary ---
Author Organization [facility] Address [address] [place] [address] Care Team Providers Care Open Hearth Furnace Operator Name Role Phone No Ref-Primary, Physician Primary Care Provider Eloisa Vallejo MD Unavailable + Makenzie Reddy PA-C Unavailable Carmen BernabeC Unavailable Ave CochranM, Podiatry /Foot and Ankle Surgery Unavailable Edwin Fitzgerald MD Unavailable Kaitlyn Tello Unavailable Tre Perera MD Unavailable Reason for Visit * Reason Onset Date Comments Appointment 05/04/2021 Encounter Details Date Type Department Care Team (Late st Contact Info) Description 05/04/2021 [facility] [place] [address] [facility] [place] [place] [address] Sharon Erwin MD Appointment Social History [...] COVID-19? No / Unsure 05/04/2021 1:49 PM CLAY DRY PRESS OPERATOR documented as of this encounter Miscellaneous Notes * Telephone Encounter - Sharon Erwin MD - 05/10/2021 4:58 PM CLAY DRY PRESS OPERATOR Sent Anafore message as well. What ever works for her schedule. You can use a chart review or provider approval for this if needed. DRY PRESS OPERATOR * Telephone Encounter - Eden Azar - 05/08/2021 4:13 PM CST LM to help schedule meet & greet. -Eden Azar Bible Teacher DRY PRESS OPERATOR * Telephone Encounter - Sharon Erwin MD - 05/05/2021 6:48 AM CLAY DRY PRESS OPERATOR Please schedule this. DRY PRESS OPERATOR * Telephone Encounter - Joyce Torrez - [...] this number? YES Travel screening: Not Applicable DRY PRESS OPERATOR documented in this encounter Plan of Treatment Upcoming Encounters Date Type Department Care Team (Late st Contact Info) Description 05/04/2024 1:00 PM CLAY DRY PRESS OPERATOR Office Visit [facility] [address] [phone] Tre Perera MD 500 [place] [address] documented as of this encounter Visit Diagnoses Not on filedocumented in this encounter Additional Health Concerns Assessment Noted Time PHQ-9 Depression Total Score: 7 07/15/19 19 3:30 PM CLAY DRY PRESS OPERATOR documented as of this encounter Care Teams Open Hearth Furnace Operator Relationship Specialty Start Date End Date No Ref-Primary, Physician PCP - General 09/16/18 Eloisa Vallejo MD PRIMARY ENT [address] [facility] 13 [facility] [address] [place] [address] Assigned PCP 11/29/19 09/16/21 Makenzie Reddy PA-C [address] [place], [place] 890[address] Assigned Surgical Provider 11/20/20 04/20/22 Carmen Bernabe PAAkanksha [address] [place] [address] Physician Internal Medicine Physician Dermatology 05/01/21 [address] Coch[address], DPM, Podiatry/Foot and Ankle Surgery [address] [facility] 300 [place] [address] Assigned Musculoskeletal Provider 12/30/21 07/11/23 Edwin Fitzgerald MD [address] [place] [address] Assigned Surgical Provider 04/21/22 03/15/23 Kaitlyn Tello GC Genetic Counseling Graduate Program Office [address] [place] [address] [address] [place], [place] [phone] Genetic Counselor Genetic Counselor, MS 12/04/22 Tre Perera MD [address] [place] [address] 091795 Assigned Surgical Provider 05/04/23 documented as of this encounter
--- OUTSIDE RECORDS SUMMARY | 2023-11-18 11:13 | XMS_ITS | Encounter Summary ---
Author Organization [facility] Address [address] [place] [address] Care Team Providers Care Patrol Officer Name Role Phone No Ref-Primary, Physician Primary Care Provider Heidi Isabel-C Unavailable +1 -[phone] Eloisa Vallejo MD Unavailable + Makenzie Reddy-C Unavailable Carmen Bernabe PA-C Unavailable Ave Cochran DPM, Podiatry /Foot and Ankle Surgery Unavailable Edwin Fitzgerald MD Unavailable [phone] Kaitlyn Tello GC Unavailable Tre Perera MD Unavailable Encounter Details Date Type Department Care Team (Late st Contact Info) Description 09/22/2019 [facility] [place] [place] [address] [address] Vicky Cervantes, JEWEL DIAMETER GAUGER Social History Tobacco Use Types Packs/Day Years [...] Upcoming Encounters Date Type Department Care Team ([facility] st Contact Info) Description 05/04/2024 1:00 PM CAR REPAIRER PULLMAN Office Visit [address] [address] Tre Perera MD [address] [place] [address] documented as of this encounter Visit Diagnoses Not on filedocumented in this encounter Additional Health Concerns Assessment Noted Time PHQ-9 Depression Total Score: 7 07/15/19 19 3:30 PM CAR REPAIRER PULLMAN documented as of this encounter Care Teams Patrol Officer Relationship Specialty Start Date End Date No Ref-Primary, Physician PCP - General 09/16/18 Heidi Isabel PA-C [address] [place] [address] Assigned PCP 09/20/19 11/28/19 Eloisa Vallejo MD PRIMARY ENT [address] [place], [place] 7[address] Assigned PCP 11/29/19 09/16/21 Makenzie Reddy PA-C [address] [place], [place] 8[address]385 Assigned Surgical Provider 11/20/20 04/20/22 Carmen Bernabe PA-C [address] [place] [address] Physician Special Education Para Professional Dermatology 05/01/21 [address] Coch[address] DPM, Podiatry/Foot and Ankle Surgery [address] [place] [address] Assigned Musculoskeletal Provider 12/30/21 07/11/23 Edwin Fitzgerald MD [address] [place] [address] Assigned Surgical Provider 04/21/22 03/15/23 Kaitlyn Tello GC Genetic Counseling Graduate Program Office [address] [place] [address] [address] [place], [place] 69[address] Genetic Counselor Genetic Counselor, MS 12/04/22 Tre Perera MD [address] [place] [address] 749875 Assigned Surgical Provider 05/04/23 documented as of this encounter
--- OUTSIDE RECORDS SUMMARY | 2023-11-18 11:14 | XMS_ITS | Encounter Summary ---
Author Organization [facility] Address [address] [place] [address] Care Team Providers Care Sueding Machine Tender Name Role Phone Omaira Herron PA-C Primary Care Provider +1- [phone] Encounter Details Date Type Department Care Team [...] on filedocumented in this encounter Care Teams Sueding Machine Tender Relationship Specialty Start Date End Date Omaira Herron PA-C [address] [place] [address] PCP - General 10/09/21 documented as of this encounter
--- OUTSIDE RECORDS SUMMARY | 2023-11-18 11:14 | XMS_ITS | Encounter Summary ---
Author Organization [facility] Address [address] [place] [address] Care Team Providers Care Drop Worker Name Role Phone Omaira Herron PA-C Primary Care Provider +1- [phone] Encounter Details Date Type Department Care Team [...] on filedocumented in this encounter Care Teams Drop Worker Relationship Specialty Start Date End Date Omaira Herron PA-C [address] [place] [address] PCP - General 10/09/21 documented as of this encounter
--- OUTSIDE RECORDS SUMMARY | 2023-11-18 11:14 | XMS_ITS | Encounter Summary ---
Author [facility] Address [address] [place] [address] Care Team Providers Care Adding Machine Operator Name Role Phone Omaira Herron PA-C Primary Care Provider +1- [phone] Encounter Details Date Type Department Care Team (Late st Contact Info) Description 03/30/2019 Correspondence SECURITY CONTACT Jose David [...] on filedocumented in this encounter Care Teams Adding Machine Operator Relationship Specialty Start Date End Date Omaira Herron PA-C [address] [place] [address] PCP - General 10/09/21 documented as of this encounter
--- OUTSIDE RECORDS SUMMARY | 2023-11-18 11:14 | XMS_ITS | Encounter Summary ---
Author Organization [facility] Address [address] [place] [address] Care Team Providers Care Legal Biller Name Role Phone Omaira Herron PA-C Primary Care Provider +1- [phone] Encounter Details Date Type Department Care Team [...] on filedocumented in this encounter Care Teams Legal Biller Relationship Specialty Start Date End Date Omaira Herron PA-C [address] [facility] [place] [address] PCP - General 10/09/21 documented as of this encounter
--- OUTSIDE RECORDS SUMMARY | 2023-11-18 11:14 | XMS_ITS | Encounter Summary ---
Author Organization [facility] Address [address] [address] Care Team Providers Care Automobile Appraiser Name Role Phone Omaira Herron PA-C Primary Care Provider +1- [phone] Encounter Details Date Type Department Care Team (Late st Contact Info) Description 12/16/2018 Correspondence [place] [facility] [address] [place] [address] [address] [place] [address] Keiko Mariee MD T B SKIN TEST [...] on filedocumented in this encounter Care Teams Automobile Appraiser Relationship Specialty Start Date End Date Omaira Herron PA-C [address] [place] [address] PCP - General 10/09/21 documented as of this encounter
--- OUTSIDE RECORDS SUMMARY | 2023-11-18 11:14 | XMS_ITS | Encounter Summary ---
Author Organization [facility] Address [address] [place] [address] Care Team Providers Care Box Printing Machine Operator Name Role Phone Omaira Herron PA-C Primary Care Provider +1- [phone] Encounter Details Date Type Department Care Team [...] on filedocumented in this encounter Care Teams Box Printing Machine Operator Relationship Specialty Start Date End Date Omaira Herron PA-C [address] [place] [address] PCP - General 10/09/21 documented as of this encounter
--- OUTSIDE RECORDS SUMMARY | 2023-11-18 11:14 | XMS_ITS | Encounter Summary ---
Author Organization [facility] Address [address] [place] [address] Care Team Providers Care Operations Associate Name Role Phone Omaira Herron PA-C Primary Care Provider +1- [phone] Encounter Details Date Type Department Care Team (Late st Contact Info) Description 09/16/2018 Scanned History External to Transferred Record, Provider [facility] Social History Tobacco Use Types Packs/Day Years [...] on filedocumented in this encounter Care Teams Operations Associate Relationship Specialty Start Date End Date Omaira Herron PA-C [address] [place] [address] PCP - General 10/09/21 documented as of this encounter
--- OUTSIDE RECORDS SUMMARY | 2023-11-18 11:14 | XMS_ITS | Encounter Summary ---
Author Organization [facility] Address [address] [place] [address] Care Team Providers Care Golf Cart Mechanic Name Role Phone Omaira Herron PA-C Primary Care Provider +1- [phone] Encounter Details Date Type Department Care Team [...] on filedocumented in this encounter Care Teams Golf Cart Mechanic Relationship Specialty Start Date End Date Omaira Herron PA-C [address] [place] [address] PCP - General 10/09/21 documented as of this encounter
== END 2023-11-18 11:09 | disposition home or self-care (01) ==
LOC: NFLDREF 11:11
PROVIDERS: Visit Provider Advanced Practice Midwife
DX: O09.522 Supervision of elderly multigravida, second trimester (principal); Z3A.16 16 weeks gestation of pregnancy
CPT/HCPCS: 81511

== ENCOUNTER 2024-02-14 14:06 | Outpatient (CLI) | payer BC, SELFPAY | END 2024-02-14 14:07 | disposition home or self-care (01) | LOC: NFLDREF 02-18 23:49 | PROVIDERS: Visit Provider Advanced Practice Midwife | DX: Z34.83 Encounter for supervision of other normal pregnancy, third trimester (principal) | CPT/HCPCS: 82565; 82570; 84156; 84450; 84460; 84520 ==

== ENCOUNTER 2024-04-06 11:46 | Outpatient (CLI) | payer BC, SELFPAY ==
--- OUTSIDE RECORDS SUMMARY | 2024-04-06 11:49 | XMS_ITS | Encounter Summary ---
Author Organization [place] Address [address] [place] [address] Care Team Providers Care Advanced Analytics Associate Name Role Phone No Ref-Primary, Physician Primary Care Provider Carmen Bernabe PA-C Unavailable Ave CochranM, Podiatry /Foot and Ankle Surgery Unavailable Kaitlyn Tello GC Unavailable Tre Perera MD Unavailable Encounter Details Date Type Department Care Team (Late st Contact Info) Description 05/01/2023 [facility] [place] [address] [address] rCystal Landa, RN Social History Tobacco Use Types Packs/Day Years Used Date Smoking Tobacco: Never Smokeless Tobacco: Never Alcohol Use Standard Drinks/Week Comments Yes 0 (1 standard drink = 0.6 oz pur e alcohol) rarely PHQ-2 Answer Date Recorded PHQ-2 Score 0 10/20/2020 Adolescent Education Answer Date Record ed Getting School Help Needed Not on file 02/10 Comments Unknown Sex and Gender Information Value Date Recorded Sex Assigned at Not on file Legal Sex Female 3:16 AM HAZARDOUS MATERIALS HANDLER Gender Identity Not on file Sexual Orientation Not on file documented as of this encounter Plan of Treatment Upcoming Encounters Date Type Department Care Team (Late st Contact Info) Description 05/04/2024 1:00 PM HAZARDOUS MATERIALS HANDLER Office Visit [address] [phone] Tre Perera MD [address] [place] [address] documented as of this encounter Visit Diagnoses Not on filedocumented in this encounter Additional Health Concerns Assessment Noted Time PHQ-9 Depression Total Score: 7 07/15/19 19 3:30 PM HAZARDOUS MATERIALS HANDLER documented as of this encounter Care Teams Advanced Analytics Associate Relationship Specialty Start Date End Date No Ref-Primary, Physician PCP - General 09/16/18 Carmen Bernabe, PAeNwC [address] [place] [address] Physician Terminal Press Operator Dermatology 05/01/21 [address] Cochran DPCristobal, Podiatry/Foot and Ankle Surgery [address] [place] [address] Assigned Musculoskeletal Provider 12/30/21 07/11/23 Kaitlyn Tello GC Genetic Counseling Graduate Program Office [address] [place] [address] [address] [place] [address] Genetic Counselor Genetic Counselor, MS 12/04/22 Tre Perera MD [address] [place] [address] Assigned Surgical Provider 05/04/23 documented as of this encounter
--- OUTSIDE RECORDS SUMMARY | 2024-04-06 11:49 | XMS_ITS | Encounter Summary ---
Author Organization [facility] Address [address] [place] [address] Care Team Providers Care Mill Platform Supervisor Name Role Phone No Ref-Primary, Physician Primary Care Provider Heidi Isabel-C Unavailable [phone] Eloisa Vallejo MD Unavailable + Makenzie Reddy-C Unavailable Carmen Bernabe PA-C Unavailable Ave Cochran DPM, Podiatry /Foot and Ankle Surgery Unavailable Edwin Fitzgerald MD Unavailable [phone] Kaitlyn Tello GC Unavailable [phone] Tre Perera MD Unavailable Encounter Details Date Type Department Care Team (Late st Contact Info) Description 09/22/2019 [facility] Medical Advice [address] [address] Vicky Cervantes, SELLING SPECIALIST Social History Tobacco Use Types Packs/Day Years Used Date Smoking Tobacco: Never Smokeless Tobacco: Never Alcohol Use Standard Drinks/Week Comments Yes 0 (1 standard drink = 0.6 oz pur e alcohol) rarely PHQ-2 Answer Date Recorded PHQ-2 Score 3 06/03/2018 Comments No Sex and Gender Information Value Date Recorded Sex Assigned at Not on file Legal Sex Female 3:16 AM HEADLINER INSTALLER Gender Identity Not on file Sexual Orientation Not on file documented as of this encounter Plan of Treatment Upcoming Encounters Date Type Department Care Team (Late st Contact Info) Description 05/04/2024 1:00 PM HEADLINER INSTALLER Office Visit [address] [phone] Tre Perera MD [address] [place], [place] [id number] documented as of this encounter Visit Diagnoses Not on filedocumented in this encounter Additional Health Concerns Assessment Noted Time PHQ-9 Depression Total Score: 7 07/15/19 19 3:30 PM HEADLINER INSTALLER documented as of this encounter Care Teams Mill Platform Supervisor Relationship Specialty Start Date End Date No Ref-Primary, Physician PCP - General 09/16/18 Heidi Isabel PA-C [address] [place], [place] [id number] Assigned PCP 09/20/19 11/28/19 Eloisa Vallejo MD PRIMARY ENT [address] [facility] [address] [place] [id number] Assigned PCP 11/29/19 09/16/21 Makenzie Reddy PA-C [address] [place] [id number] Assigned Surgical Provider 11/20/20 04/20/22 Carmen Bernabe PA-C [address] [place] [address] Physician Clinical Research Assistant Dermatology 05/01/21 [address] Cochran, DPM, Podiatry/Foot and Ankle Surgery [address] [place] [address] [place] [address] Assigned Musculoskeletal Provider 12/30/21 07/11/23 Edwin Fitzgerald MD [address] [place] [address] Assigned Surgical Provider 04/21/22 03/15/23 Kaitlyn Tello GC Genetic Counseling Graduate Program Office [address] [place] [address] [address] [place] [address] Genetic Counselor Genetic Counselor, [place] 12/04/22 Tre Perera MD [address] [place] [address] Assigned Surgical Provider 05/04/23 documented as of this encounter
--- OUTSIDE RECORDS SUMMARY | 2024-04-06 11:49 | XMS_ITS | Clinical Summary ---
Author Organization [facility] Address [address], [place] [address] Care Team Providers Care Bit Bender Name Role Phone Omaira Herron PA-C Primary Care Provider [phone] Source Comments You are receiving this document as you are listed as the primary care provider,follow-up provider, or the patient has been referred to you for consultation.This is in compliance with the Medicare and[facility] EHR Incentive Program,which states Providers who transition their patient to another setting of careor provider of care or refers their patient to another provider of care shouldprovide summary care record for each transition of care or referral. Payoff Allergies Active Allergy Reactions Criticality Noted Date [...] Positive 08/19/19 12 Influenza IIV4 (Quadrivalent) 0.5mL (17558) 02/19,04/24/2016 MMR 04/24/2016,01/18/2015 Pfizer Monovalent 12+ Purple [...] 93 01/09/2022 8:09 AM CDT Temperature 36.6 C (97.9 F) 01/09/2022 8:09 AM CDT Respiratory Rate 16 01/09/2022 8:09 AM CDT [...] 01/09/2022, 05/20, 04/08/2019 COVID-19 Vaccine ( season) 2024 03/16/2021, 06/27/2020, 06/06/2020 Influenza (#1) 2024 03/16/2021, 02/19, 04/24/2016, Additional history exists DTaP/Tdap/Td [...] on patient's age to complete this topic Infant RSV Aged Out No longer eligi ble based on patient's age to complete this topic MCV4 Aged Out No longer eligi ble based on patient's age to complete this topic Care Teams Bit Bender Relationship Specialty Start Date End Date Omaira Herron, PA-C [address] [place], [place] [id number] PCP - General 10/09/21
--- OUTSIDE RECORDS SUMMARY | 2024-04-06 11:49 | XMS_ITS | Encounter Summary ---
Author Organization [facility] Address [address] [place] [address] Care Team Providers Care Compensation Director Name Role Phone No Ref-Primary, Physician Primary Care Provider Eloisa Vallejo MD Unavailable + Makenzie Reddy PA-C Unavailable Carmen BernabeC Unavailable [phone] [address] Cochran DPM, Podiatry /Foot and Ankle Surgery Unavailable Edwin Fitzgerald MD Unavailable Kaitlyn Tello Unavailable [phone] Tre Perera MD Unavailable Reason for Visit * Reason Onset Date Comments Appointment 05/04/2021 Encounter Details Date Type Department Care Team (Late st Contact Info) Description 05/04/2021 [facility] [place] [address] [facility] [place] [address] Sharon Erwin MD Appointment Social History Tobacco Use Types Packs/Day Years Used Date Smoking Tobacco: Never Smokeless Tobacco: Never Alcohol Use Standard Drinks/Week Comments Yes 0 (1 standard drink = 0.6 oz pur e alcohol) rarely PHQ-2 Answer Date Recorded PHQ-2 Score 0 10/20/2020 Comments No Sex and Gender Information Value Date Recorded Sex Assigned at Not on file Legal Sex Female 3:16 AM ROUTE SALES REPRESENTATIVE Gender Identity Not on file Sexual Orientation Not on file COVID-19 Exposure Response Date Recorded In the last month, have you been in contact with someone who was confirmed or suspected to have Coronavirus / COVID-19? No / Unsure 05/04/2021 1:49 PM ROUTE SALES REPRESENTATIVE documented as of this encounter Miscellaneous Notes * Telephone Encounter - Sharon Erwin MD - 05/10/2021 4:58 PM ROUTE SALES REPRESENTATIVE Sent [employer] message as well. What ever works for her schedule. You can use a chart review or provider approval for this if needed. E SALES REPRESENTATIVE * Telephone Encounter - Eden Azar - 05/08/2021 4:13 PM CST LM to help schedule meet & greet. -Eden Azar Review Consultant E SALES REPRESENTATIVE * Telephone Encounter - Sharon Erwin MD - 05/05/2021 6:48 AM ROUTE SALES REPRESENTATIVE Please schedule this. E SALES REPRESENTATIVE * Telephone Encounter - Joyce Torrez - [...] this number? YES Travel screening: Not Applicable E SALES REPRESENTATIVE documented in this encounter Plan of Treatment Upcoming Encounters Date Type Department Care Team (Hilary Contact Info) Description 05/04/2024 1:00 PM ROUTE SALES REPRESENTATIVE Office Visit [address] [address] Tre Perera MD [address] [place] [address] documented as of this encounter Visit Diagnoses Not on filedocumented in this encounter Additional Health Concerns Assessment Noted Time PHQ-9 Depression Total Score: 7 07/15/19 19 3:30 PM ROUTE SALES REPRESENTATIVE documented as of this encounter Care Teams Compensation Director Relationship Specialty Start Date End Date No Ref-Primary, Physician PCP - General 09/16/18 Eloisa Vallejo MD PRIMARY ENT [address] [facility] [address] [facility] [address] [place] [id number] Assigned PCP 11/29/19 09/16/21 Makenzie Reddy PA-C [address] [facility] [address] [place], [place] [address] Assigned Surgical Provider 11/20/20 04/20/22 Carmen Bernabe PAAkanksha [address] [place] [address] Physician Integrity Engineer Dermatology 05/01/21 [address] Cochran DPM, Podiatry/Foot and Ankle Surgery [address] [facility] [address] [place] [address] Assigned Musculoskeletal Provider 12/30/21 07/11/23 Edwin Fitzgerald MD [address] [place] [address] Assigned Surgical Provider 04/21/22 03/15/23 Kaitlyn Tello GC Genetic Counseling Graduate Program Office [address] [place] [address] [address] [place], [place] [address] Genetic Counselor Genetic Counselor, [place] 12/04/22 rTe Perera MD [address] [place] [id number] Assigned Surgical Provider 05/04/23 documented as of this encounter
--- OUTSIDE RECORDS SUMMARY | 2024-04-06 11:49 | XMS_ITS | Encounter Summary ---
Author Organization [email or web address] Address [address] [place] [address] Care Team Providers Care Sticker Hand Name Role Phone Omaira Herron PA-C Primary Care Provider [phone] Encounter Details Date Type Department Care Team [...] on filedocumented in this encounter Care Teams Sticker Hand Relationship Specialty Start Date End Date Omaira Herron PA-C [address] [place] [address] PCP - General 10/09/21 documented as of this encounter
--- OUTSIDE RECORDS SUMMARY | 2024-04-06 11:49 | XMS_ITS | Clinical Summary ---
Author Organization [facility] Address [place], [place] [address] Care Team Providers Care Flight Service Agent Name Role Phone [facility] Primary Care Provider [phone] Genoveva Ng CNM Unavailable [phone] Daron Sherwood MD Unavailable [phone] Allergies Active Allergy Reactions Criticality Noted Date Comments Amoxicillin GI Upset 09/18/2018 Hydromorphone Itching 09/18/2018 Fentanyl Itching 09/18/2018 Shellfish Derived Rash 09/18/2018 Medications Medication Sig Dispensed Refills Start Date End Date Status cetirizine (ZYRTEC) 10 mg tablet Take 10 mg by mouth 5 times daily if needed. 0 09/18/2018 Active albuterol HFA (PRO-AIR; VENTOLIN; PROVENTIL) 90 mcg/actuation inhalerIndications:Mild intermittent asthma with exacerbation Inhale 2 Puffs by mouth 4 times daily if needed for Wheezing. 18 g 02/22/2022 Active ondansetron (ZOFRAN ODT) 4 mg disintegrating tablet 4 mg. 01/22/2024 Act mike Nighttime Sleep-Aid, doxylamn, 25 mg tablet TAKE 1 TAB EVERY DAY AT BEDTIME NEEDED FOR NAUSEA AND VOMITING 09/02/2023 Active PNV no.95/ferrous fum/folic ac ( ORAL) Take by mouth. Active docusate sodium (COLACE ORAL) Take by mouth. Active BABY ASPIRIN ORAL Take 81 mg by mouth. Active buPROPion (WELLBUTRIN XL) 300 mg Extended-Release tablet Take 300 mg by mouth once daily. Active dimenhyDRINATE (Dramamine) 50 mg chew Chew 50 mg by mouth every 6 hours. Active Active Problems Problem Noted Date Diagnosed Date AMA (advanced maternal age) multigravida 33+, third trimester 03/09/2024 growth restriction antepartum 02/12/2024 History of poor growth 12/17/2023 Family history of congenital heart disease 12/16 [facility] High-risk supervision 10/03/2023 Overview (04/03/2024): Kacie HesterMadison Tamiko Donaldson : 1990 [facility] ULTRASOUND/TESTING PATIENT Support person name: Khari REFERRING PROVIDER/CLINIC LOCATION/FAX #: Genoveva Ng CNM , Primary provider approves scheduling of recommended ultrasounds/testing: Yes ULTRASOUND TYPE: 04/08/24 BPP (NST) @ 36w3d REASON FOR VISIT: AMA NEXT VISIT ALERTS: Final ELIGIO by LMP Date: 07/28/23 ELIGIO: 05/03/24 And confirmed by Early US: Date: 09/30/23 GA: 9w1d ELIGIO: 05/03/24 Pre- Weight: 110 # Height: 62 in BMI: 20 PLANS & FUTURE APPOINTMENTS: ULTRASOUND/GROWTH PLAN: - Next Growth: 04/03/24 TESTING PLAN: wkly starting at 28 wks - Testing through: 04/20/24 DELIVERY PLAN: 04/03/24 Delivery is recommended at 37w0d due to severe FGR - Scheduled delivery: - Preferred delivery location: [place]/ [facility] PRIMARY DIAGNOSIS: 33 y.o. Estimated Date of Delivery: 05/03/24. 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 , doppler wnl 03/09/24 32w1d EFW 1558 gm, 6% 02/12/24 28w3d EFW 1075 grams, percentile 12; AC 3.4 12/17/23 20w2d EFW 324 grams, percentile: 32 ECHO: 12/17/23 Peds cards Normal segmental cardiac anatomy. Normal biventricular size and function. No gross abnormalities noted on echocardiogram. SPECIALISTS/CONSULTS: Include: Specialty MD Clinic Name Phone# LV [place] and ADDED TO PATIENT CARE TEAM GENETICS: NIPS: Negative 12/17/23 GC with CARE COORDINATION: PERTINENT LABS: Labs reviewed? yes Blood type: A positive Antibody screen:Negative Non-[facility] labs need to be entered in EPIC? Yes 09/30/23 baseline pre E labs WNL x PCR 0.02; PERTINENT MEDS: Bupropion PROCEDURES: FGR <10% or suspected EFW <2000 gm Education given: yes FGR AVS printed: yes Discussed the 2000 gm (4.5 lbs) and 36 wk GA requirement for admission to [facility] yes Desired delivery location: [facility] Confirm location of delivery cut off on (S:\Metro\ANW\Pn\ALL MWFCC ANW/NICU): 35w, no weight cut off NICU consult offered If EFW is predicted below 2,000 grams: N/A - EFW @ 39 week > 2,000 grams [employer] message sent s [employer] with subject NICU CONSULT: Not Applicable PLAN OF CARE: 04/03/24 per VL RECOMMENDATIONS: - Continue weekly BPP/NST/UAR next week - Delivery is recommended at 37w0d due to severe FGR - Kacie will discuss location of delivery with her provider as her current delivery hospital does not have a NICU service. Discussed option of contacting [facility] if delivery location must be changes and a [facility] delivery is desired. 03/09 per HT -Return to primary provider for continued care. -Betamethasone per provider discretion. -Weekly BPP/NST s. -Weekly umbilical artery Dopplers. -Repeat growth ultrasound in 3-4 weeks. - Final delivery recommendations with next growth ultrasound. -The patient has scheduled future ultrasounds with [facility]. -The patient was directed to schedule with [facility] provider as discussed at their visit today. 03/19 per RL -Continue surveillance with weekly biophysical profiles with NSTs. -Umbilical artery Dopplers weekly. Depression, recurrent 10/22/2018 Bloating 09/18/2018 Overview (10/31/2018): EGD 10/2018 normal, try low fodmap diet Asthma Diarrhea Estimated Date of Delivery Comme nts Yes 05/03/2024 Based on last me nstrual period of 07/28/2023 Encounters Date Type Department Care Team Description 04/03/2024 8:52 AM SEAT COVER MAKER - 04/03/2024 11:59 PM SEAT COVER MAKER Hospital Encounter [facility] [address] [place] [address] Zee Knapp MD Supervision of high risk in second trimester; Supervision of high risk in third trimester 04/03/2024 Travel 04/01/2024 Orders Only [facility] [address] [place] [id number] Kayy Velez PA <No scans attached> 03/23/2024 2:00 PM SEAT COVER MAKER - 03/23/2024 11:59 PM SEAT COVER MAKER Hospital Encounter [facility] [address] [place] [address] Karen Nathan MD growth restriction antepartum; Supervision of high risk in third trimester 03/23/2024 Travel 03/19/2024 1:51 PM CDT - 03/19/2024 11:59 PM CDT Hospital Encounter [facility] [address] [place] [address] Karen Nathan MD growth restriction antepartum; Supervision of high risk in third trimester 03/19/2024 Travel 03/09/2024 1:19 PM CDT - 03/09/2024 11:59 PM CDT Hospital Encounter [facility] [address] [place] [address] Zee Knapp MD Supervision of high risk in third trimester (Primary Dx); Supervision of high risk in second trimester 03/09/2024 Travel 03/02/2024 2:22 PM CDT - 03/02/2024 11:59 PM CDT Hospital Encounter [facility] [address] [place] [address] Karen Nathan MD growth restriction antepartum; Supervision of high risk , antepartum 03/02/2024 Travel 02/24/2024 2:00 PM CDT - 02/24/2024 11:59 PM CDT Hospital Encounter [facility] [address] [place] [address] Supervision of high risk in third trimester (Primary Dx); growth restriction antepartum 02/24/2024 Travel 02/17/2024 2:24 PM CDT - 02/17/2024 11:59 PM CDT Hospital Encounter [facility] [address] [place] [address] Supervision of high risk in third trimester (Primary Dx); growth restriction antepartum 02/17/2024 Travel 02/12/2024 8:40 AM CDT - 02/12/2024 11:59 PM CDT Hospital Encounter [facility] [address] [place] [address] Zee Knapp MD Supervision of high risk in second trimester (Primary Dx); growth restriction antepartum 02/12/2024 Travel from Last 3 Months Family History Medical [...] Given: Yes Alcohol Use Standard Drinks/Week Comments Not Currently 0 (1 standard drink = 0.6 oz pur e alcohol) Once every 3 months Social Connections Answer Date Recorded Frequency of Communication with Friends and Fami ly Not on file 05/20/2021 Financial Resource Strain Answer Date R ecorded Difficulty of Paying Living Expenses Not on file 05/20/2021 Difficulty of Paying Living Expenses Not on file 05/20/2021 Estimated Date of Delivery Comme nts Yes 05/03/2024 Based on last me nstrual period of 07/28/2023 Sex and Gender Information Value Date Recorded Sex Assigned at Not on file Gender Identity Not on file Sexual Orientation Not on file Obstetrics History Para Term AB IAB SAB Ectopic Multiple Livin g Live Births 2 1 1 1 1 Date Outcome GA Total Labor Labor/2nd/3rd Weight Sex Type Anes PTL Cherise A1 A5 Name Clin 022 Term 38w 0d 2.55 kg (5 lb 10 oz) M VAGINA L CARLINE Livin g Delivery Location:Hospital ( [place]) Comments:pre-E; Current Summary Episode Dates Number of Fetuses Estimated Date of Delivery 12/17/2023 - Present (04/06/2024) 1 05/03/2024 (set by Herlinda Guerrero RN on 02/10/2024 based on Last Menstrual Period on 07/28/2023) Dating Summary Based On ELIGIO GA Diff Last Menstrual Period on 07/28/2023 05/03/2024 Working Ultrasound on 09/30/2023 05/03/2024 Same GA:9w1d Vitals Pregravid Weight Height TWG (As of 04/06/2024) Pregrav id BMI 49.9 kg (110 lb) Date GA Fund Present FHR Mvmt BP Weight Edema Alb Glu Ket Dil/ Eff/Sta 4 20w2d Inpatient data not displayed here. See encounter summary. 4 28w3d Inpatient data not displayed here. See encounter summary. 4 29w1d Inpatient data not displayed here. See encounter summary. 4 30w1d Inpatient data not displayed here. See encounter summary. 4 31w1d Inpatient data not displayed here. See encounter summary. 4 32w1d Inpatient data not displayed here. See encounter summary. 4 33w4d Inpatient data not displayed here. See encounter summary. 4 34w1d Inpatient data not displayed here. See encounter summary. 4 35w5d Inpatient data not displayed here. See encounter summary. Notes Progress Notes - Hospital En counter - 04/03/2024 - GA:35w5d 04/03/2024 - 35w5d - Radha Beebe RN [place] [facility] Testing (BPP/NST) visit Patient at [facility] for testing @ 35w5d gestation due to FGR. FGR - PCOMM added and education given at a previous visit. Patient admitted to the testing room. Placed on monitor for non stress test (NST) and uterine activity assessment as part of her Biophysical Profile. BPP 8/8 per divinity professor. Nursing interpretation of monitor strip: Reactive Non-Stress Test. Refer to the Assessment Flowsheet (#[id number]) for further testing results. She describes daily positive activity counts. activity counts instructions reviewed with patient. Stressed importance of reporting decreased movement. Review of Symptoms Vaginal bleeding: Denies Vaginal discharge: Denies Vaginal leaking of fluids: Denies Cramping / contractions: Denies Headache: Denies URQ pain: Denies Visual changes: Denies Patient questions/concerns Denies Current testing plan Surveillance BPP/NST (weekly) in [facility] Clinic. Routine OB care with primary provider. Education is documented in patient education section. Patient states that all her questions were answered and understands she should call her primary OB clinic if she experiences any decreased movements, increased contractions (discomfort and frequency), vaginal bleeding, or leaking of fluid. RN time Face to Face 15 min Radha Beebe RN .................... 04/03/2024 9:52 AM COVER MAKER Progress Notes - Hospital En counter - 03/23/2024 - GA:34w1d 03/23/2024 - 34w1d - Datzman , Shabnam, RN [place] [facility] Testing (BPP/NST) visit Patient at [facility] for testing @ 34w1d gestation due to FGR. Patient admitted to the testing room. Placed on monitor for non stress test (NST) and uterine activity assessment as part of her Biophysical Profile. BPP 8/8 per divinity professor. Nursing interpretation of monitor strip: Reactive Non-Stress Test. Refer to the Assessment Flowsheet (#[id number]) for further testing results. She describes daily positive activity counts. activity counts instructions reviewed with patient. Stressed importance of reporting decreased movement. Review of Symptoms Vaginal bleeding: Denies Vaginal discharge: Denies Vaginal leaking of fluids: Denies Cramping / contractions: Denies Headache: Denies URQ pain: Denies Visual changes: Denies Patient questions/concerns Denies Current testing plan Surveillance BPP/NST (weekly) in [facility] Clinic. Routine OB care with primary provider. Education is documented in patient education section. Patient states that all her questions were answered and understands she should call her primary OB clinic if she experiences any decreased movements, increased contractions (discomfort and frequency), vaginal bleeding, or leaking of fluid. RN time Face to Face 20 min Shabnam Pratt RN .................... 03/23/2024 2:40 PM COVER MAKER Progress Notes - Hospital En counter - 03/09/2024 - GA:32w1d 03/09/2024 - 32w1d - Shabnam Pratt RN [place] [facility] Testing (BPP/NST) visit Patient at [facility] for testing @ 32w1d gestation due to FGR. Patient admitted to the testing room. Placed on monitor for non stress test (NST) and uterine activity assessment as part of her Biophysical Profile. BPP 8/8 per divinity professor. Nursing interpretation of monitor strip: Reactive Non-Stress Test. Refer to the Assessment Flowsheet (#[id number]) for further testing results. She describes daily positive activity counts. activity counts instructions reviewed with patient. Stressed importance of reporting decreased movement. Review of Symptoms Vaginal bleeding: Denies Vaginal discharge: Denies Vaginal leaking of fluids: Denies Cramping / contractions: Denies Headache: Denies URQ pain: Denies Visual changes: Denies Patient questions/concerns FGR Pcom completed and education provided Current testing plan Surveillance BPP/NST (weekly) in [facility] Clinic. Routine OB care with primary provider. Education is documented in patient education section. Patient states that all her questions were answered and understands she should call her primary OB clinic if she experiences any decreased movements, increased contractions (discomfort and frequency), vaginal bleeding, or leaking of fluid. RN time Face to Face 20 min Shabnam Pratt RN .................... 03/09/2024 2:00 PM Progress Notes - Hospital En counter - 03/02/2024 - GA:31w1d 03/02/2024 - 31w1d - Joselyn Engel RN [place] [facility] Testing (BPP/NST) visit Patient at [facility] for testing @ 31w1d gestation due to FGR. Patient admitted to the testing room. Placed on monitor for non stress test (NST) and uterine activity assessment as part of her Biophysical Profile. BPP 8/8 per divinity professor. Nursing interpretation of monitor strip: Reactive Non-Stress Test. Refer to the Assessment Flowsheet (#[id number]) for further testing results. She describes daily positive activity counts. activity counts instructions reviewed with patient. Stressed importance of reporting decreased movement. Review of Symptoms Vaginal bleeding: Denies Vaginal discharge: Denies Vaginal leaking of fluids: Denies Cramping / contractions: Denies Headache: Denies URQ pain: Denies Visual changes: Denies Patient questions/concerns None Current testing plan Surveillance BPP/NST (weekly) in [facility] Clinic. Routine OB care with primary provider. Education is documented in patient education section. Patient states that all her questions were answered and understands she should call her primary OB clinic if she experiences any decreased movements, increased contractions (discomfort and frequency), vaginal bleeding, or leaking of fluid. RN time Face to Face 20 min JOSELYN ENGEL RN .................... 03/02/2024 3:06 PM Progress Notes - Hospital En counter - 02/24/2024 - GA:30w1d 02/24/2024 - - Shanice Hackett RN [place] [facility]icians Testing (BPP/NST) visit Patient at [facility] for testing @ 30w1d gestation due to FGR due to AC. Patient admitted to the testing room. Placed on monitor for non stress test (NST) and uterine activity assessment as part of her Biophysical Profile. BPP to follow. Nursing interpretation of monitor strip: Reactive Non-Stress Test. Refer to the Assessment Flowsheet (#[id number]) for further testing results. She describes daily positive activity counts. activity counts instructions reviewed with patient. Stressed importance of reporting decreased movement. Review of Symptoms Vaginal bleeding: Denies Vaginal discharge: Denies Vaginal leaking of fluids: Denies Cramping / contractions: Denies Headache: Denies URQ pain: Denies Visual changes: Denies Patient questions/concerns Denies Current testing plan Surveillance BPP/NST (weekly) in [facility] Clinic. Routine OB care with primary provider. Education is documented in patient education section. Patient states that all her questions were answered and understands she should call her primary OB clinic if she experiences any decreased movements, increased contractions (discomfort and frequency), vaginal bleeding, or leaking of fluid. RN time Face to Face 15 min Shanice Elizabeth RN .................... 02/24/2024 2:34 PM Progress Notes - Hospital En counter - 02/17/2024 - GA:29w1d 02/17/2024 - - Regis Cruz RN [place] [facility] Testing (BPP/NST) visit Patient at [facility] Clinic for testing @ 29w1d gestation due to FGR due to AC. Patient admitted to the testing room. Placed on monitor for non stress test (NST) and uterine activity assessment as part of her Biophysical Profile. BPP to follow. Nursing interpretation of monitor strip: Reactive Non-Stress Test. Refer to the Assessment Flowsheet (#[id number]) for further testing results. She describes daily positive activity counts. activity counts instructions reviewed with patient. Stressed importance of reporting decreased movement. Review of Symptoms Vaginal bleeding: Denies Vaginal discharge: Denies Vaginal leaking of fluids: Denies Cramping / contractions: Denies Headache: Denies URQ pain: Denies Visual changes: Denies Patient questions/concerns denies. Current testing plan Surveillance BPP/NST (weekly) in [facility] Clinic. Routine OB care with primary provider. Education is documented in patient education section. Patient states that all her questions were answered and understands she should call her primary OB clinic if she experiences any decreased movements, increased contractions (discomfort and frequency), vaginal bleeding, or leaking of fluid. RN time Face to Face 20 min Regis Cruz RN .................... 02/17/2024 2:34 PM Progress Notes - Hospital En counter - 02/12/2024 - GA:28w3d 02/12/2024 - 28w3d - [facility], Karen Sandy MD [facility] Ultrasound 02/12/24 Referred By: GENOVEVA NG CNM INDICATION: Indications Code 28 weeks gestation of Z3A.28 Hx child w/ CHD (VSD, PDA & coarctation with surgical repair) Advanced maternal age, multigravida -- 33 yo [address] Hx of FGR in prior Low Risk NIPT +Bupropion IMPRESSION: Intrauterine at 28w 3d. presentation is Cephalic. EFW 1075 grams, percentile: 12. AC 3rd percentile Growth parameters and estimated weight are consistent with growth restriction. Deepest Vertical Pocket of amniotic fluid: 3.99 cm. Biophysical profile score: 10/10. No major structural anomalies identified on limited survey, prior normal level 2 US. The umbilical artery Dopplers were normal. Placental location: Anterior. There is no evidence of placenta previa. The transabdominal cervical length is 3 cm. RECOMMENDATIONS: -Return to primary provider for continued care. -Weekly BPP/NSTs with umbilical artery dopplers. -Repeat growth ultrasound in 4 weeks. -Delivery timing will be finalized pending future growth US. -Patient directed to schedule at the front desk lead on the way out, or to call [facility] within 2 business days to schedule follow up. COMMENT: The patient was seen by the Perinatologist today. The previous ultrasound and the records were reviewed. The results of today's ultrasound were communicated to the patient. Possible etiologies for FGR include aneuploidy, genetic syndromes, infection, maternal medical conditions (ie. HTN), placental insufficiency, and constitutional patterns of growth differences. We did not identify any structural abnormalities on ultrasound today or other findings consistent with aneuploidy or infection (although this does not rule out these possible causes). We reviewed the normal amniotic fluid and umbilical artery Doppler studies. Given her history of growth restriction in the prior preganncy and lagging AC, findings concerning for placental insufficiency. Given the growth indices today, close maternal/ surveillance is recommended. The established guidelines in our practice for management of uncomplicated FGR include: -When FGR is mild, we recommend repeat growth ultrasound in 3-4 weeks, BPPs and Dopplers weekly (starting at 28 weeks), and delivery at 38 0/7 to 39 0/7 weeks' with a goal of 39 weeks. Delivery planning should occur when the patient attains a gestational age of 34-36 weeks based on the growth ultrasound. -When FGR is severe, we recommend repeat growth ultrasound in 3-4 weeks, weekly BPPs (starting at 28 weeks) and weekly Doppler studies.Delivery is recommended at 37 0/7 weeks. If at any time the Dopplers or amniotic fluid become abnormal, a repeat consult to [facility] should be requested. If absent or reversed end diastolic flow in the umbilical artery were to occur, inpatient hospitalization for betamethasone and increased surveillance will be recommended. delivery may be indicated. New government regulations related to the Cures act require that this note be released to the patient immediately, sometimes before the referring provider has been contacted. A portion of the information was presented verbally to the patient. The remainder is submitted as background for the referring provider, to be discussed as needed. Medical Decision Making 72574 Moderate number and complexity of Problems addressed including new diagnosis of FGR Moderate Amount and/or complexity of Data reviewed and analyzed: reviewing records and US, ordering follow up as above Low risk Services Provided: Procedures Code FOLLOW UP GROWTH, BPP/NST & UMBILICAL DOPPLER 95501.0 48178.0, 82819.0 Karen Nathan MD 02/12/2024 - w3d - Regis Cruz RN [place] [facility] Testing (BPP/NST) visit Patient at [facility] for testing @ 28w3d gestation due to FGR. Patient admitted to the testing room. Placed on monitor for non stress test (NST) and uterine activity assessment as part of her Biophysical Profile. BPP 8/8 per divinity professor. Nursing interpretation of monitor strip: Reactive Non-Stress Test. Refer to the Assessment Flowsheet (#[id number]) for further testing results. She describes daily positive activity counts. activity counts instructions reviewed with patient. Stressed importance of reporting decreased movement. Review of Symptoms Vaginal bleeding: Denies Vaginal discharge: Denies Vaginal leaking of fluids: Denies Cramping / contractions: Denies Headache: Denies URQ pain: Denies Visual changes: Denies Patient questions/concerns denies. Current testing plan Surveillance BPP/NST (weekly) in [facility] Clinic. Routine OB care with primary provider. Education is documented in patient education section. Patient states that all her questions were answered and understands she should call her primary OB clinic if she experiences any decreased movements, increased contractions (discomfort and frequency), vaginal bleeding, or leaking of fluid. RN time Face to Face 20 min Regis Cruz RN .................... 02/12/2024 9:58 AM Progress Notes - Hospital En counter - 12/17/2023 - GA:20w2d 12/17/2023 - 20w2d Cristino Traore MS, [facility] / Clinic Note Genetic Counseling RE: Madison Donaldson : 1990 MR: [id number] Partner name: Khari Referred By: Genoveva Ng CNM Indication for Visit: Hx child with FGR, VSD/PDA and coarctation of aorta with surgical repair at 5 months of age History: Estimated Date of Delivery: 05/03/2024 by LMP GAA: 20 weeks 2 days Complete genetic screening/testing: Low Risk cfDNA screening for aneuploidy ([facility] - [id number]) - Fraction: 11% Medications: Zofran and Wellbutrin Exposures/infections: None reported. Family History: A three generation pedigree was obtained at today's appointment. Please see scans for details. This is a second of the current union. The couples first child was 5 pounds 10 ounces at 38 weeks. Madison reports she had COVID in the and was identified to have preeclampsia after delivery. A murmur was identified and then her son after delivering and he was found to have a VSD and a PDA. [facility]up echocardi[facility] at 5 weeks of life revealed a coarctation of the aorta and their son was immediately admitted for surgery. He also had a umbilical hernia repair at approximately 12 weeks. He is now almost 2-1/2 and parents report he is doing very well. Patient history notable for: Madison's family history is negative for known genetic conditions or defects which may increase the risks of this . She she reports a significant family history of cancers. She has met with a genetic cancer counselor and had genetic screening which was negative. She is aware that negative screening does not eliminate the risk for developing cancer. Madison also reports some family history of autoimmune conditions.Autoimmune conditions occur when the body's immune system starts to attack itself. Some examples include, celiac, crohn's disease, lupus, and rheumatid arthritis. Most autoimmune disorders are thought to be multifactorial. Multifactorial inheritance means that many factors are involved in causing a health problem. The factors are usually both genetic and environmental. A combination of genes from both parents, in addition to unknown environmental factors, produce the trait or condition. Multifactorial traits do recur in families because they are partly caused by genes. The environmental factors are generally thought to trigger an immune response to certain environmental influences such as viral infections or sunlight. Once an autoimmune disease is present in a family, other relatives may be at risk to develop the same autoimmune disease, or a different autoimmune disease. For example, a mother may have rheumatoid arthritis, and one of her siblings may develop lupus. Genes and family history are not the only factors involved in determining who will get an autoimmune disease. In other words, if autoimmune diseases are in a family, it does not automatically mean that all relatives will develop one of these conditions. A positive family history of autoimmune disorders means that there is a genetic predisposition that may increase the risk to develop an autoimmune disease. Partner history notable for: Khari is a triplet. The other two triplets are male and Khari reports they are all fraternal. Khari possibly had a VSD identified after delivery. Madison reports Khari's mother thinks he had a VSD. If a VSD was present it spontaneously resolved. Otherwise unremarkable Patient ethnicity: (White) Partner ethnicity: (White) Consanguinity: none noted Risk Assessment: There is a 3-5% background risk for defects and a 1-2% background risk for intellectual disability and/or developmental delay for any given . Congenital heart defects (CHD) are relatively common, occurring in 0.8-1% of live births or approximately 40,000 per year. I explained that the majority of congenital heart defects are associated with at least some underlying genetic component. Isolated cardiac defects are usually multifactorial in etiology; however, occasionally a cardiac anomaly may, in a given family, appear to result from a single gene. It is estimated at least 15% of CHDs are associated with an underlying condition identified by microarray and the suspicion for an underlying condition increases if further anomalies are noted. Additionally, at least 15% of CHDs are associated with an underlying single gene disorder, with may or may not include extracardiac features. Approximately 20-30% of individuals with CHDs have additional physical, developmental or cognitive disorders. Recurrence risks for specific defects have been reported and the risk to a couple who has had a previously affected child is approximately 2-3%. Risk in more distant family members falls off as they are more distantly related; for second-degree relatives, it is 1-2%; and third-degree relatives, it is probably less than 1%. Discussed Madison's low risk NIPS result. The low risk cell-free DNA screening test ([id number]) decreases the risk for this to be affected by one of the common chromosomal conditions to less than 1/10,000. This significantly reduces, but does not eliminate, the possibility for a chromosomal difference in this . Please see scans for report. The following genetic screening and testing options were discussed: level II ultrasound with echocardiogram, amniocentesis Discussion: Madison presented today for genetic counseling, level 2 ultrasound with echocardiogram due to history of their son with a coarctation of the aorta as well as a VSD and PDA. Madison was understandably very emotional today. She felt she would be somewhat reassured following a normal level II ultrasound and echocardiogram today. However, their sons's cardiac concerns were not identified until after delivery and the whole process was very traumatic. Madison expressed that she will have elevated anxiety until after delivery and assured of normal echocardiogram and normal exam and their infant.. The couple verbalized their understanding of our consult today and have no further questions at this time. The couple was reassured by the low risk cell free DNA screening and declined diagnostic testing at this time. However, Madison reported she wanted to avoid any significant surprises and would consider additional testing if any concerns were identified on ultrasound today. Plan: Madison elected to proceed with the level II ultrasound after today s consult. Please refer to the imaging reports forwarded under separate cover. Thank you for allowing us to participate in your patient's care. Please do not hesitate to contact me with any additional questions or concerns. Sincerely, Popeye Bauer MS, RASHEED Licensed Genetic Counselor Total time: 37 minutes in person [facility], [address] [place] [address] Last Filed Vital Signs Vital Sign Reading Time Taken Comments Blood Pressure 114/78 04/03/2024 9:50 AM SEAT COVER MAKER Pulse 85 04/03/2024 9:50 AM SEAT COVER MAKER Temperature 36.4 C (97.6 F) 02/22/2022 12:18 PM CDT Respiratory Rate 18 02/22/2022 12:18 PM CDT Oxygen Saturation 98% 02/22/2022 12:18 PM CDT Inhaled Oxygen Concentration - - Weight 49.9 kg (110 lb) 06/26/2023 10:05 AM SEAT COVER MAKER Height 157.5 cm (5' 2) 02/22/2022 12:18 PM CDT Body Mass Index 20.12 02/22/2022 12:18 PM CDT Plan of Treatment Upcoming Encounters Date Type Department Care Team (Late st Contact Info) Description 04/08/2024 10:45 AM SEAT COVER MAKER Appointment [facility] [address] [place] [address] 04/08/2024 11:15 AM SEAT COVER MAKER Appointment [facility] [address] [place] [address] 04/13/2024 2:15 PM SEAT COVER MAKER Appointment [facility] [address] [place] [address] 04/13/2024 2:45 PM SEAT COVER MAKER Appointment [facility] [address] [place] [address] 04/20/2024 1:00 PM SEAT COVER MAKER Appointment [facility] [address] [place] [address] 04/20/2024 1:30 PM SEAT COVER MAKER Appointment [facility] [address] [place] [address] Health Maintenance Due Date Last Done Comments Tdap 09/12/1999 Depression screening for age 12+ 2000 HIV for age 15-65 09/12/2003 Hepatitis C screening for ag e 18-79 2006 Tetanus booster 2008 Pap test for age 21-65 2009 BMI (ht and wt on same day) for age 18+ 07/13/2021 07/13/2020, 10/22/2018 COVID-19 vaccine series ( season) 2024 03/16/2021 Influenza for age 9-49 01/19/2024 RSV vaccine for adults or (1 - Risk 1-dose series) 03/08/2024 Pneumococcal series for age 6-64 Aged Out No longer eligible b ased on patient's age to complete this topic Procedures Procedure Name Priority Date/Time Associated Diagnosis Comments US OB FOLLOW UP ANY TRI SINGLE TA Routine 04/03/2024 9:37 AM SEAT COVER MAKER Supervision of high risk in second trimester US OB BIOPHYSICAL PROFILE SINGLE W NST Routine 03/23/2024 2:27 PM SEAT COVER MAKER growth restriction antepartum US OB BIOPHYSICAL PROFILE SINGLE W NST Routine 03/19/2024 3:19 PM CDT growth restriction antepartum US OB FOLLOW UP ANY TRI SINGLE TA Routine 03/09/2024 1:39 PM CDT Supervision of high risk in second trimester US OB BIOPHYSICAL PROFILE SINGLE W NST Routine 03/02/2024 2:45 PM CDT growth restriction antepartum US OB BIOPHYSICAL PROFILE SINGLE W NST Routine 02/24/2024 2:59 PM CDT growth restriction antepartum US OB BIOPHYSICAL PROFILE SINGLE W NST Routine 02/17/2024 3:36 PM CDT growth restriction antepartum US OB FOLLOW UP ANY TRI SINGLE TA Routine 02/12/2024 9:18 AM CDT Supervision of high risk in second trimester from Last 3 Months Results * Growth Follow Up Any Trimester (CPT 18231) If BPP w/NST needed use Testing section for order (04/03/2024 9:37 AM SEAT COVER MAKER) Only the most recent of3 resultswithin the time period is included. 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 presentation is Cephalic. EFW 2045 grams, percentile: < 3. Growth parameters and estimated weight are consistent with growth restriction. Deepest Vertical Pocket of amniotic fluid: 3.73 cm. Biophysical profile score: 10/10. No major structural anomalies identified. The umbilical artery Dopplers were normal. Placental location: Anterior fundal. There is no evidence of placenta previa. RECOMMENDATIONS: - Continue weekly BPP/NST/UAR next week - Delivery is recommended at 37w0d due to severe FGR - Kacie will discuss location of delivery with her provider as her current delivery hospital does not have a NICU service. Discussed option of contacting [facility] if delivery location must be changes and a [facility] delivery is desired. COMMENT: The patient was seen by the Perinatologist today. The previous ultrasound and the records were reviewed. The results of today's ultrasound were communicated to the patient. Possible etiologies for FGR include aneuploidy, genetic syndromes, infection, maternal medical conditions (ie. HTN), placental insufficiency, and constitutional patterns of growth differences. We did not identify any structural abnormalities on ultrasound today or other findings consistent with aneuploidy or infection (although this does not rule out these possible causes). We reviewed the normal amniotic fluid and umbilical artery Doppler studies. Given the growth indices today, close maternal/ surveillance is recommended. The established guidelines in our practice for management of uncomplicated FGR include: -When FGR is mild, we recommend repeat growth ultrasound in 3-4 weeks, BPPs and Dopplers weekly (starting at 28 weeks), and delivery at 38 0/7 to 39 0/7 weeks' with a goal of 39 weeks. Delivery planning should occur when the patient attains a gestational age of 34- 36 weeks based on the growth ultrasound. -When FGR is severe, we recommend repeat growth ultrasound in 3-4 weeks, weekly BPPs (starting at 28 weeks) and weekly Doppler studies.Delivery is recommended at 37 0/7 weeks. If at any time the Dopplers or amniotic fluid become abnormal, a repeat consult to [facility] should be requested. If absent or reversed end diastolic flow in the umbilical artery were to occur, inpatient hospitalization for betamethasone and increased surveillance will be recommended. delivery may be indicated. There are risks, benefits and limitations to maternal serum screening, ultrasound, and genetic amniocentesis. New government regulations related to the Century Cures act require that this note be released to the patient immediately, sometimes before the referring provider has been contacted. A portion of the information was presented verbally to the patient. The remainder is submitted as background for the referring provider, to be discussed as needed. Medical Decision Making Low Level 86958 Limited number and complexity of Problems addressed including two self limited problems, and FGR Limited Amount and/or complexity of Data reviewed and analyzed: Category 1a (two) External Notes, Review Results of Unique Tests and Ordering Unique Tests Moderate risk of morbidity from recommendations for early delivery which was explained Services Provided: Procedures Code FOLLOW UP GROWTH, BPP/NST & UMBILICAL DOPPLER 99076.0 85360.0, 62693.0 Procedure Note Natalie Cam MD - 04/03/2024 Referred By: GENOVEVA NG CNM INDICATION: IndicationsCode 35 weeks gestation of [id number].35 FGR - Growth Restriction 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 presentation is Cephalic. EFW 2045 grams, percentile: < 3. Growth parameters and estimated weight are consistent with fetalgrowth restriction. Deepest Vertical Pocket of amniotic fluid: 3.73 cm. Biophysical profile score: 10/10. No major structural anomalies identified. The umbilical artery Dopplers were normal. Placental location: Anterior fundal. There is no evidence of placenta previa. RECOMMENDATIONS: - Continue weekly BPP/NST/UAR next week - Delivery is recommended at 37w0d due to severe FGR - Kacie will discuss location of delivery with her provider as her [facility] does not have a NICU service. [facility] if [facility] must be changes and a [facility] is desired. COMMENT: The patient was seen by the Perinatologist today. The previous ultrasoundand the records were reviewed. The results of today's ultrasound werecommunicated to the patient. Possible etiologies for FGR include aneuploidy, genetic syndromes,infection, maternal medical conditions (ie. HTN), placental insufficiency, and constitutional patternsof growth differences. We did not identify any structural abnormalities onultrasound today or other findings consistent with aneuploidy or infection (although this does notrule out these possible causes). We reviewed the normal amniotic fluid and umbilicalartery Doppler studies. Given the growth indices today, close maternal/ surveillance isrecommended. The established guidelines in our practice for management of uncomplicated FGRinclude: -When FGR is mild, we recommend repeat growth ultrasound in 3-4 weeks,BPPs and Dopplers weekly (starting at 28 weeks), and delivery at 38 0/7 to 39 0/7 weeks' with agoal of 39 weeks. Delivery planning should occur when the patient attains a gestational ageof 34- 36 weeks based on the growth ultrasound. -When FGR is severe, we recommend repeat growth ultrasound in 3-4 weeks,weekly BPPs (starting at 28 weeks) and weekly Doppler studies.Delivery is recommended at 37 0/7weeks. If at any time the Dopplers or amniotic fluid become abnormal, [facility]. If absent or reversed end diastolic flow in the umbilical artery were tooccur, inpatient hospitalization for betamethasone and increased surveillance will berecommended. delivery may be indicated. There are risks, benefits and limitations to maternal serum screening,ultrasound, and genetic amniocentesis. New government regulations related to the Cures act requirethat this note be released to the patient immediately, sometimes before the referringprovider has been contacted. A portion of the information was presented verbally to thepatient. The remainder is submitted as background for the referring provider, to be discussed asneeded. Medical Decision Making Low Level 34563 Limited number and complexity of Problems addressed including two selflimited problems, and FGR Limited Amount and/or complexity of Data reviewed and analyzed: [id number] (two) External Notes, Review Results of Unique Tests and Ordering Unique Tests Moderate risk of morbidity from recommendations for early delivery whichwas explained Services Provided: ProceduresCode FOLLOW UP GROWTH, BPP/NST & UMBILICAL DOPPLER 59906.670038.0, 36809.0 Zee Knapp MD US * BPP with NST (CPT 76042) (03/23/2024 2:27 PM SEAT COVER MAKER) Only the most recent of5 resultswithin the time period is included. 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 presentation is Cephalic. Deepest Vertical Pocket of amniotic fluid: 4.77 cm. Reassuring biophysical profile 02/26. The umbilical artery ratio was normal. RECOMMENDATIONS: -Continue surveillance with weekly biophysical profiles with NSTs. -Umbilical artery Dopplers weekly. COMMENT: The patient was not seen by the Perinatologist today. The results of today's ultrasound were communicated to the patient by the Inspecting Supervisor. New government regulations related to the Century Cures act require that this note be released to the patient immediately, sometimes before the referring provider has been contacted. 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 presentation is Cephalic. Deepest Vertical Pocket of amniotic fluid: 4.77 cm. Reassuring biophysical profile 02/26. The umbilical artery ratio was normal. RECOMMENDATIONS: -Continue surveillance with weekly biophysical profiles withNSTs. -Umbilical artery Dopplers weekly. COMMENT: The patient was not seen by the Perinatologist today. The results oftoday's ultrasound were communicated to the patient by the Inspecting Supervisor. New government regulations related to the Cures act requirethat this note be released to the patient immediately, sometimes before the referringprovider has been contacted. Services Provided: ProceduresCode BPP/NST & UMBILICAL DOPPLER 51502.790925.0 Karen Nathan MD US from Last 3 Months Advance Directives * Full Code (Latest Code Status on File) Date Activated Date Inactivated Comments 08/01/2020 11:39 AM 08/01/2020 4:07 PM Question Answer Comments Code Status Discussion: Per Existing Order Care Teams Flight Service Agent Relationship Specialty Start Date End Date [address] [place] [address] PCP - General 06/25/23 Genoveva Ng CNM [address] [facility] [place] [id number] Referring Provider Certified Nurse Zigzag Tunnel Elastic Operator 10/03/23 Daron Sherwood MD [address], [place] [address] Cardiology Cardiology - Pediatric 12/13/23 5
--- OUTSIDE RECORDS SUMMARY | 2024-04-06 11:49 | XMS_ITS | Encounter Summary ---
Author Organization [facility] Address [address] [place] [address] Care Team Providers Care Caramel Cutter Hand Name Role Phone Omaira Herron PA-C Primary Care Provider [phone] Encounter Details Date Type Department Care Team (Late st Contact Info) Description 04/06/2019 Correspondence External to [facility], Provider IMMUNIZATION SUMMARY Social History Tobacco [...] on filedocumented in this encounter Care Teams Caramel Cutter Hand Relationship Specialty Start Date End Date Omaira Herron, FELIX [address] [facility] [place] [address] PCP - General 10/09/21 documented as of this encounter
--- OUTSIDE RECORDS SUMMARY | 2024-04-06 11:49 | XMS_ITS | Clinical Summary ---
Author Organization [facility] Address [address] [place] [address] Care Team Providers Care Preschool Assistant Principal Name Role Phone No Ref-Primary, Physician Primary Care Provider Carmen Bernabe PA-C Unavailable Kaitlyn Tello GC Unavailable Tre Perera MD Unavailable Allergies Active Allergy Reactions Criticality Noted Date Comments Amoxicillin Nausea and Vomiting 05/28/2012 Hydromorphone Hcl Rash Low 05/25/2013 Fentanyl Rash Low 05/25/2013 Seasonal Allergies 05/28/2012 Shellfish Allergy Rash Low 05/28/2012 Medications Cetirizine HCl (ZYRTEC ALLERGY PO) Take 1 tablet by mouth as needed. Active albuterol (PROAIR HFA/PROVENTIL HFA/VENTOLIN HFA) 108 (90 Base) MCG/ACT inhalerIndication s:Intermittent asthma, uncomplicated Inhale 2 puffs into the lungs every 4 hours as needed for shortness of breath / dyspnea 2 Inhaler 11 06/03/201 9 Active desogestrel-ethin yl estradiol (KARIVA) 0.15-0.02/0.01 MG (07/10) tablet Take 1 tablet by mouth daily Active cholecalciferol (VITAMIN D3) 5000 units (125 mcg) capsule Take by mouth daily Active Probiotic Product (PROBIOTIC-10 PO) Take by mouth daily Active budesonide (PULMICORT FLEXHALER) 180 MCG/ACT inhaler 1 Active buPROPion (WELLBUTRIN XL) 300 MG 24 hr tablet 150 mg 1 Active Vit-Fe Fumarate-FA ( MULTIVITAMIN W/IRON) 27-0.8 MG tablet Take 1 tablet by mouth daily Active budesonide (RINOCORT AQUA) 32 MCG/ACT nasal spray [place] 1 spray into both nostrils daily Active Docusate Sodium (COLACE PO) Active Famotidine (PEPCID PO) Active triamcinolone (ARISTOCORT HP) 0.5 % external creamIndications: Chronic dermatitis of hands Apply a thin layer to affected area BID x 2 weeks, tapering with improvement. Do not apply to face or body folds. 60 g 2 Active Additional Information Patient not taking.Reported on 12/22/2021 silver sulfADIAZINE (SILVADENE) 1 % external creamIndications: Acute foot pain, left,Ingrown nail of great toe of left foot Apply topically 2 times daily 25 g 1 2 Active Additional Information Patient not taking.Reported on [...] on file Legal Sex Female 3:16 AM RECRUITMENT SPECIALIST Gender Identity Not on file Sexual Orientation Not on file Last Filed Vital Signs Vital Sign Reading Time Taken Comments Blood Pressure 105/66 08/27/2022 12:58 PM CDT Pulse 91 08/27/2022 12:30 PM CDT Temperature 36.9 C (98.4 F) 08/27/2022 9:32 AM CDT Respiratory Rate 18 08/27/2022 9:32 AM CDT Oxygen Saturation 100% 08/27/2022 12:58 PM CDT Inhaled Oxygen Concentration - - Weight 58.5 kg (129 lb) 12/22/2021 4:05 PM CDT Height 157.5 cm (5' 2) 11/16/2020 2:02 PM CDT Body Mass Index 23.59 11/16/2020 2:02 PM CDT Plan of Treatment Upcoming Encounters Date Type Department Care Team (Late st Contact Info) Description 05/04/2024 1:00 PM RECRUITMENT SPECIALIST Office Visit [address] [phone] Tre Perera MD [address] [place] [address] Health Maintenance Due Date Last Done [...] 05/25/2013, 05/28/2012 NE ASSESSMENT 07/15/2019 07/15/2018, 06/03/2018 PHQ-2 (once per calendar year) 2023 10/20/2020, 07/15/2018, 06/03/2018, Additional history exists COVID-19 Vaccine ( season) 2024 03/16/2021, 06/27/2020, 06/06/2020 INFLUENZA VACCINE (#1) 2024 , 03/19/2018, 04/24/2016, Additional history exists GLUCOSE 08/27/2025 08/27/2022, 05/20, 05/25/2013, Additional history exists DTAP/TDAP/TD IMMUNIZATION (6 - Td or Tdap) 05/23/2031 05/23/2021, 06/12/2019, 06/12/2019, Additional history exists RSV VACCINE (1 - 1-dose 75+ series) 09/12/2063 HPV IMMUNIZATION Aged Out No longer e [...] ACTION PLAN Routine 04/04/2016 12 :10 PM RECRUITMENT SPECIALIST Intermittent asthma, uncomplicated ABSTRACT PAP (HIM EXTERNAL [...] CDT Sam Rios MD LAB - BLOOD ORDERABLES Final Result RH LABORATORY [facility] Acute Care Lab [address] Lab (1st floor, no room number) [place] [address], [facility] [phone] * ABSTRACT PAP-NO CHARGE (02/19/2016) PAP Negative Negative EXTERNAL LAB 02/19/2016 Narrative EXTERNAL LAB - 02/19/2016 Please abstract the following data from this visit with this patient into the appropriate field in Epic: Pap smear done on this date: 02/19/16 (approximately), by this group: OBGYN specialty, results were Normal. us Patient Reported LAB - HIM EXTERNAL RESULT Final Result EXTERNAL LAB External Lab from Last 3 Months or Most Recently Relevant to Health Maintenance Insurance BCBS OUT OF STATE BCBS OUT OF STATE Advance Directives For more information, please contact: [phone] * Full Code (Latest Code Status on File) Date Activated Date Inactivated Comments 07/28/2012 10:04 AM 08/27/2022 9:27 AM Care Teams Preschool Assistant Principal Relationship Specialty Start Date End Date No Ref-Primary, Physician PCP - General 09/16/18 Carmen Bernabe, PA-C [address] [place] [address] Physician Mineral Economist Dermatology 05/01/21 Kaitlyn Tello GC Genetic Counseling Graduate Program Office [address] [place] [address] [address] [place], [place] [phone] Genetic Counselor Genetic Counselor, [place] 12/04/22 Tre Perera MD [address] [place] [phone] Assigned Surgical Provider 05/04/23
--- OUTSIDE RECORDS SUMMARY | 2024-04-06 11:49 | XMS_ITS | Encounter Summary ---
[facility] Organization [email or web address] Address [address] [place] [address] Care Team Providers Care Rail Filler Name Role Phone Omaira Herron PA-C Primary Care Provider [phone] Encounter Details Date Type Department Care Team [...] on filedocumented in this encounter Care Teams Rail Filler Relationship Specialty Start Date End Date Omaira Herron PA-C [address] [place] [address] PCP - General 10/09/21 documented as of this encounter
--- OUTSIDE RECORDS SUMMARY | 2024-04-06 11:49 | XMS_ITS | Encounter Summary ---
Author Organization [facility] Address [address] [place] [address] Care Team Providers Care Airplane Pilot Supervisor Name Role Phone Clinic - [place] Primary Ar re Provider Heidi Isabel PA-C Unavailable Heidi Isabel PA-C Unavailable No Ref-Primary, Physician Primary Care Provider Eloisa Vallejo MD Unavailable + Heidi Isabel PA-C Unavailable [phone] Eloisa Vallejo MD Unavailable + Makenzie Reddy-C Unavailable Carmen Bernabe PA-C Unavailable [phone] Cochran DPM, Podiatry /Foot and Ankle Surgery Unavailable Edwin Fitzgerald MD Unavailable Kaitlyn Tello GC Unavailable Tre Perera MD Unavailable Reason for Visit * Reason Onset Date Comments Medication Question 07/19/2018 anxiety med Encounter Details Date Type Department Care Team (Late st Contact Info) Description 07/19/2018 MyC Medical Advice [facility] [address] [place] [phone] Heidi Isabel PA-C [address] [place] [address] Medication Question (anxiety med) Social History Tobacco [...] on file Legal Sex Female 3:16 AM HYDRAULIC DESIGN ENGINEER Gender Identity Not on file Sexual Orientation Not on file documented as of this encounter Miscellaneous Notes * Telephone Encounter - Lola Doe RN - 07/21/2018 10:04 AM HYDRAULIC DESIGN ENGINEER Prozac ordered 07/15/18. Paxil was ordered 02/10/15. Looks like fatigue was an issue. See telephone encounter of 03/11/15. AULIC DESIGN ENGINEER documented in this encounter Plan of Treatment Upcoming Encounters Date Type Department Care Team (Late st Contact Info) Description 05/04/2024 1:00 PM HYDRAULIC DESIGN ENGINEER Office Visit [facility] [address] [phone] Tre Perera MD [address] [place] [address] documented as of this encounter Visit Diagnoses Not on filedocumented in this encounter Additional Health Concerns Assessment Noted Time PHQ-9 Depression Total Score: 7 07/15/19 19 3:30 PM HYDRAULIC DESIGN ENGINEER documented as of this encounter Care Teams Airplane Pilot Supervisor Relationship Specialty Start Date End [facility] [address] [place] [address] PCP - General 06/03/18 09/15/18 Heidi Isabel PA-C [address] [facility], [place] [phone] PCP - Assigned PCP 06/08/18 07/22/18 No Ref-Primary, Physician PCP - General 09/16/18 Heidi Isabel PA-C [address] [place] [facility] [place] [address] Assigned PCP 06/08/18 06/06/19 Eloisa Vallejo MD PRIMARY ENT [address] [place] [address] Assigned PCP 06/07/19 09/19/19 Heidi Isabel PA-C [address] [place] [address] Assigned PCP 09/20/19 11/28/19 Eloisa Vallejo MD PRIMARY ENT [address] [place] [address] Assigned PCP 11/29/19 09/16/21 Makenzie Reddy PA-C [address] [facility] [address] [place] [address] Assigned Surgical Provider 11/20/20 04/20/22 Carmen Bernabe PA-C [address] [place] [address] Physician Pharmacy Benefit Manager Dermatology 05/01/21 Ave Cochran, DPM, Podiatry/Foot and Ankle Surgery [address] [place] [address] Assigned Musculoskeletal Provider 12/30/21 07/11/23 Edwin Fitzgerald MD [address] [place] [address] Assigned Surgical Provider 04/21/22 03/15/23 Kaitlyn Tello GC Genetic Counseling Graduate Program Office [address] [place] [address] [address] [place], [place] [address] Genetic Counselor Genetic Counselor, [place] 12/04/22 Tre Perera MD [address] [place], [place] [address] Assigned Surgical Provider 05/04/23 documented as of this encounter
--- OUTSIDE RECORDS SUMMARY | 2024-04-06 11:49 | XMS_ITS | Referral Summary ---
Author Organization [facility] Address [address] [place] [address] Care Team Providers Care Pitch Gatherer Name Role Phone No Ref-Primary, Physician Primary [...] budesonide (RINOCORT AQUA) 32 MCG/ACT nasal spray [place] 1 spray into both nostrils daily Active [...] on file Legal Sex Female 3:16 AM COOK HELPER MEAT Gender Identity Not on file Sexual Orientation [...] st Contact Info) Description 05/04/2024 1:00 PM COOK HELPER MEAT Office Visit [facility] [address] [phone] Tre Perera MD [address] [place] [phone] Procedures Procedure Name Priority Date/Time Associated Diagnosis Comments BASIC METABOLIC PANEL STAT 08/27/2022 11:57 AM CDT ASTHMA ACTION PLAN Routine 04/04/2016 12 :10 PM COOK HELPER MEAT Intermittent asthma, uncomplicated ABSTRACT PAP (HIM EXTERNAL [...] 11:57 AM CDT 08/27/2022 12:00 PM CDT us Sam Rios MD LAB - BLOOD ORDERABLES Final Result LABORATORY [facility] Acute Care Lab [address] Lab (1st floor, no room number) [place] [address] [phone] * ABSTRACT PAP-NO CHARGE (02/19/2016) PAP Negative [...] Most Recently Relevant to Health Maintenance Insurance [facility] OUT OF STATE [facility] Advance Directives For more information, please contact: [phone] * Full Code (Latest Code Status on File) Date Activated Date Inactivated Comments 07/28/2012 10:04 AM 08/27/2022 9:27 AM Care Teams Pitch Gatherer Relationship Specialty Start Date End Date No Ref-Primary, Physician PCP - General 09/16/18 Carmen Bernabe, PANewC [address] [place] [address] Physician Support Staff Dermatology 05/01/21 Kaitlyn Tello GC Genetic Counseling Graduate Program Office [address] [place] [address] [address] [place] [address] Genetic Counselor Genetic Counselor, [place] 12/04/22 Tre Perera MD [address] [place] [id number] Assigned Surgical Provider 05/04/23
--- OUTSIDE RECORDS SUMMARY | 2024-04-06 11:49 | XMS_ITS | Encounter Summary ---
Author Organization [facility] Address [address] [place] [address] Care Team Providers Care Supervisor Contact Lens Name Role Phone Omaira Herron PA-C Primary Care Provider [phone]- [phone] Encounter Details Date Type Department Care Team [...] filedocumented in this encounter Care Teams Supervisor Contact Lens Relationship Specialty Start Date End Date Omaira Herron PA-C [address] [place] [address] PCP - General 10/09/21 documented as of this encounter
--- OUTSIDE RECORDS SUMMARY | 2024-04-06 11:49 | XMS_ITS | Patient Health Record ---
Author Organization [facility] Address [address] [place] [address] Care Team Providers Care Warp Doffer Name Role Phone Nancy Veea Primary Care Provider [phone] Allergies Allergen (clinical drug ingredient) Drug/Non Drug Allergy documented on EMR Reaction Allergy Type Onset Date Status hydromorphone Dilaudid Unknown Drug Allergy Act mike amoxicillin Amoxicillin Unknown Drug Allergy Act mike fentanyl Fentanyl Unknown Drug Allergy Active Reason For Referral No Information Medications Medication SIG (Take, Route, Fr equency, Duration) Notes Start Date End Date Status Budesonide (Inhalation) Active Albuterol Active Wellbutrin XL 300 MG 1 tablet in the mor charlette Orally Once a day for 30 day(s) Active PNV Active Social History Tobacco Use: Social History Observation Description Date Details (start date - stop date) Never Smoker NA - NA Tobacco Use/Smoking Question Answer Notes Are you a nonsmoker Problems Problem Type SNOMED Code ICD Code Onset Dates Problem Status W/U Status Risk Notes Problem Missed period (23436836) Missed period (N92.6) Active confirmed Plan Of Treatment No Information Insurance Providers Payer Name Payer Address Payer Phone Subscriber Number Group Number Insured Name Patient Relationship to Insured Coverage Start Date Coverage End Date [employer] (Ins Bill) [address] [place] [address] [id number] Madison Donaldson Self - patient is the insured Medical (General) History Medical History History ICD Code Chicken pox Depression/Anxiety Asthma Surgical History Surgery Date(Month/Year) Hernia repair 1988 Bilateral PE tubes 1991 Call[place] teeth 2000 Left Knee surgery 2016,2012,2008,2008, 2007
--- OUTSIDE RECORDS SUMMARY | 2024-04-06 11:50 | XMS_ITS | Encounter Summary ---
Author Organization [facility] Address [address] [address] Care Team Providers Care Basket Hand Braider Name Role Phone Omaira Herron PA-C Primary Care Provider [phone]- [phone] Encounter Details Date Type Department Care Team (Late st Contact Info) Description 12/16/2018 Correspondence [facility] [address] [place] [address] [address] [place] [address] Keiko Mariee MD T B SKIN TEST [...] on filedocumented in this encounter Care Teams Basket Hand Braider Relationship Specialty Start Date End Date Omaira Herron PA-C [address] [place] [place] [address] PCP - General 10/09/21 documented as of this encounter
--- OUTSIDE RECORDS SUMMARY | 2024-04-06 11:50 | XMS_ITS | Encounter Summary ---
Author Organization [facility] Address [address] [place] [address] Care Team Providers Care City Councilman Name Role Phone Omaira Herron PA-C Primary Care Provider [phone]- [phone] Encounter Details Date Type Department Care Team [...] on filedocumented in this encounter Care Teams City Councilman Relationship Specialty Start Date End Date Omaira Herron PA-C [address] [place] [address] PCP - General 10/09/21 documented as of this encounter
--- OUTSIDE RECORDS SUMMARY | 2024-04-06 11:50 | XMS_ITS | Encounter Summary ---
Author Organization [facility] Address [address] [place] [address] Care Team Providers Care Trimmer And Borer Machine Operator Name Role Phone Omaira Herron PA-C Primary Care Provider [phone]- [phone] Encounter Details Date Type Department Care Team [...] on filedocumented in this encounter Care Teams Trimmer And Borer Machine Operator Relationship Specialty Start Date End Date Omaira Herron PA-C [address] [place] [address] PCP - General 10/09/21 documented as of this encounter
--- OUTSIDE RECORDS SUMMARY | 2024-04-06 11:50 | XMS_ITS | Encounter Summary ---
Author Organization [facility] Address [address] [place] [address] Care Team Providers Care Insulation Professional Name Role Phone Omaira Herron PA-C Primary Care Provider [phone]- [phone] Encounter Details Date Type Department Care Team (Late st Contact Info) Description 09/16/2018 Scanned History External to Transferred Record, Provider [facility] Social History Tobacco Use Types Packs/Day Years [...] on filedocumented in this encounter Care Teams Insulation Professional Relationship Specialty Start Date End Date Omaira Herron PA-C [address] [place] [address] PCP - General 10/09/21 documented as of this encounter
--- OUTSIDE RECORDS SUMMARY | 2024-04-06 11:50 | XMS_ITS | Encounter Summary ---
Author Organization [facility] Address [address] [place] [address] Care Team Providers Care Press Feeder Broomcorn Name Role Phone Omaira Herron PA-C Primary Care Provider +1- [phone] Encounter Details Date Type Department Care Team [...] on filedocumented in this encounter Care Teams Press Feeder Broomcorn Relationship Specialty Start Date End Date Omaira Herron PA-C [address] [place] [address] PCP - General 10/09/21 documented as of this encounter
[2024-04-07 11:11] LABS: Strep B DNA Probe Negative (Negative)
[2024-04-07 11:32] LABS: Strep B Susceptibility Needed? No
== END 2024-04-06 11:47 | disposition home or self-care (01) ==
LOC: NFLDREF 11:47
PROVIDERS: Visit Provider Advanced Practice Midwife
DX: Z34.93 Encounter for supervision of normal pregnancy, unspecified, third trimester (principal); Z3A.36 36 weeks gestation of pregnancy
CPT/HCPCS: 87081; 87653

== ENCOUNTER 2024-06-19 09:30 | Outpatient (RCR) | payer BC, SELFPAY | END 2024-10-17 23:59 | disposition home or self-care (01) | PROVIDERS: Visit Provider Advanced Practice Midwife | DX: O34.82 Maternal care for other abnormalities of pelvic organs, second trimester (principal); Z87.898 Personal history of other specified conditions; Z39.2 Encounter for routine postpartum follow-up; Z51.89 Encounter for other specified aftercare | CPT/HCPCS: 97110; 97112; 97140; 97162; 97530; 97535 ==